=== PATIENT | female | born 1930 | race Caucasian/White ===

== ENCOUNTER 2017-07-08 07:44 | Day surgery (SDC) | payer MEDICARE, OTHER ==
[2017-06-24 11:06] LABS: ABSOLUTE BASOPHILS # (AUTO) 0.1 10^3/uL (0.0-0.2); ABSOLUTE EOSINOPHILS # (AUTO) 0.1 10^3/uL (0.0-0.6); ABSOLUTE LYMPHOCYTES (AUTO) 1.8 10^3/uL (0.5-4.7); ABSOLUTE MONOCYTES (AUTO) 0.6 10^3/uL (0.1-1.4); ABSOLUTE NEUT (AUTO) 4.2 10^3/uL (1.7-8.2); BASOPHILS % (AUTO) 0.8 % (0-2); EOSINOPHILS % (AUTO) 2.1 % (0-6); HEMATOCRIT 37.3 % (36.0-47.0); HEMOGLOBIN 12.5 g/dL (12.0-15.5); HGB HCT DIFFERENCE 0.2; LYMPHOCYTES % (AUTO) 26.3 % (13-45); MEAN CORPUSCULAR HGB CONC 33.5 g/dL (32.0-36.0); MEAN CORPUSCULAR VOLUME 84 fl (80-97); MONOCYTES % (AUTO) 8.6 % (3-13); RED BLOOD COUNT 4.46 10^6/uL (3.72-5.28); RED CELL DISTRIBUTION WIDTH 14.5 % (11.5-14.0); SEGMENTED NEUTROPHILS % (AUTO) 62.2 % (42-78); WHITE BLOOD COUNT 6.7 10^3/uL (4.0-10.5)
[2017-06-24 11:17] LABS: PROTHROMBIN TIME 13.9 SEC (11.4-15.4)
[2017-06-24 11:18] LABS: PARTIAL THROMBOPLASTIN TIME 28.6 SEC (23.5-35.8)
--- NOTE | 2017-06-24 12:11 | EKG REPORT ---
SEVERITY:- ABNORMAL ECG - SINUS RHYTHM FIRST DEGREE AV BLOCK : Confirmed by: Heather Lucero 24-Jun-2017 12:11:01
[~2017-07-08 07:44] MED LIST: LACTATED RINGERS 1000 ML IV PRN; LIDOCAINE 0.5% INJ-PF (5 MG/ML) 50 ML SDV SUBCUT PRN; LIDOCAINE 1%/EPINEPHRINE INJ 20 ML VIAL ONE; SODIUM BICARBONATE 8.4% INJ 50 MEQ/50 ML DISP.SYRIN ONE
[2017-07-08] MEDS ORDERED: FENTANYL CITRATE INJ/PF 100 MCG/2 ML AMPUL ONE (08:57)
[2017-07-08] MEDS ORDERED: MIDAZOLAM 2 MG/2 ML INJ ONE (08:57)
[2017-07-08] MEDS ORDERED: DEXAMETHASONE SOD PHOSPHATE INJ 4 MG/1 ML VIAL ONE (08:57)
[2017-07-08] MEDS ORDERED: ONDANSETRON HCL INJ/PF 4 MG/2 ML SDV ONE (08:57)
[2017-07-08] MEDS ORDERED: PROPOFOL INJ 200 MG/20 ML VIAL IV ONE ×2 (08:57→11:08)
[2017-07-08] MEDS: DOXYCYCLINE HYCLATE 100 MG in DEXTROSE 5%-WATER 250 ML IV PRN ×2 (09:00→09:32)
[2017-07-08] MEDS ORDERED: BACITRACIN INJ 50,000 UNIT VIAL ONE (09:35)
--- NOTE | 2017-07-08 11:17 | Operative Report ---
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 Patient was brought into the operating room and placed on the operating room table in a supine position. Patient was then prepped with a Betadine scrub and Betadine solution and draped in a sterile and aseptic manner. The area was then marked. 12 O'clock was marked towards the knee 3 O'clock was marked towards the pre-tibia 6:00 was marked towards the ankle 9:00 was marked towards the posterior calf The area was then anesthetized with 1% lidocaine with epinephrine and bicarbonate for its anesthetic and hemostatic effects. The area was then excised and marked at 12:00. The specimen was sent for frozen section. The results came back that the deep and lateral margins were free. This was some sort of squamous atypical lesion as reported by Dr. Ribera. We had considered a primary closure but this would go against the natural relaxed skin tension lines. A primary closure would be too tight and would have increased chance of dehiscence. This will leave more of a scar so we decided to use a boomerang sliding advancement flap reconstruction which would camouflage the scar better and take tension off of the closure so that would be less chances of complications. Then went ahead and outlined the flap and anesthetized it. Then incised the flap and developed a flap maintaining the subdermal plexus. Then we undermined 360 to allow for plate like scarring and minimize trap door deformity. Throughout the case hemostasis was achieved with the bipolar. We then tried to sutured the flap into its new position using 4-0 Vicryl for the subcutaneous and deep dermis however the skin was so thin and the tissue gap with the flap in its new position still could not hold the sutures. Therefore we were unable to use any subcutaneous sutures because of such poor quality of the tissue. We only were able to use skin sutures in order to anchor the flap into its new position. Skin was closed with a horizontal mattress, vertical mattress and simple sutures using 3-0 Prolene with knots being tied on the outside. We then applied tincture benzoin and Steri-Strips followed by a light pressure dressing. Patient was then reversed from anesthesia and taken to the [facility] for recovery. The patient tolerated well. There were no complications. Lesion size was approximately 2.5 x 2.7 cm with the defect being over 3 cm once the specimen was removed, please see pathology for actual size. Portions of this note may be dictated using [employer] voice recognition software. Occasional variations and spelling and vocabulary could be possible and are unintentional. Additionally, there is a chance that some errors may not be caught or corrected. Please notify the offer of any discrepancies noted or if any statements are unclear. Subjective: No complaints Objective: Vital signs stable afebrile No bleeding Dressing intact Assessment and plan: Doing well. Elevate the operative site. Resume medications. Take antibiotics for 1 day Follow-up Full instructions were given to the patient and family and they understand Portions of this note may be dictated using [employer] voice recognition software. Occasional variations and spelling and vocabulary could be possible and are unintentional. Additionally, there is a chance that some errors may not be caught or corrected. Please notify the offer of any discrepancies noted or if any statements are unclear.
--- NOTE | 2017-07-08 11:19 | PDOC DISCHARGE SUMMARY ---
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 Ribera Date of Surgery: 07/08/17 Condition: Good Treatment or Instructions: Leave the top dressing on for 2 days, then removed. Leave the steri-strip tapes on for 5 days, then removal. Then cleaning wound with peroxide and apply Neosporin/bacitracin 3 times per day. Antibiotics for 1 day, then discontinue. Elevate operative area to decrease swelling. Do not strain, or lift heavy objects. Call for excessive bleeding, increased temperature of 101, uncontrolled pain, or excessive nausea or vomiting. You may reach Dr. Johns through his office at [phone]. In the event of an emergency after hours, then contact Dr. Johns through [facility]. Return to the office for a postop check on . The time will be scheduled by the nursing staff of [facility] prior to discharge. Please give the patient a copy of their labs and EKG so they can bring this to their PMD. Thank you Portions of this note may be dictated using [employer] voice recognition software. Occasional variations and spelling and vocabulary could be possible and are unintentional. Additionally, there is a chance that some errors may not be caught or corrected. Please notify the offer of any discrepancies noted or if any statements are unclear. Referrals: ALAYNA LARRY MD [Primary Care Provider] - Discharge Diet: As Tolerated - Keep leg elevated. Minimize any formation of edema in the leg. Be very careful not to traumatize the area.
[2017-07-08 13:03] VITALS: BP 172/93
== END 2017-07-08 13:00 | disposition home or self-care (01) ==
LOC: OROUT 07:44
PROVIDERS: ATTEND Plastic Surgery
PROC: 0HBKXZZ Excision of Right Lower Leg Skin, External Approach (ICD-10-PCS; 2017-07-08)
PROC: 0HXKXZZ Transfer Right Lower Leg Skin, External Approach (ICD-10-PCS; principal; 2017-07-08 10:00)
DX: C44.792 Other specified malignant neoplasm of skin of right lower limb, including hip (principal); L57.0 Actinic keratosis; E78.00 Pure hypercholesterolemia, unspecified; M19.90 Unspecified osteoarthritis, unspecified site; I10 Essential (primary) hypertension; G40.909 Epilepsy, unspecified, not intractable, without status epilepticus; J30.2 Other seasonal allergic rhinitis; E89.0 Postprocedural hypothyroidism; Z88.6 Allergy status to analgesic agent; Z88.5 Allergy status to narcotic agent; Z79.899 Other long term (current) drug therapy; Z86.73 Personal history of transient ischemic attack (TIA), and cerebral infarction without residual deficits; Z79.01 Long term (current) use of anticoagulants
CPT/HCPCS: 93005; 36415; 85025; 85610; 85730; 88305 ×2; 88331; 93010; 14020; J2250; J3490 ×4; J1100; J2405; J7060; J2704; 400; J3010

== ENCOUNTER → 2017-07-18 | Outpatient (CLI) | payer MEDICARE, OTHER ==
--- NOTE | 2017-07-18 08:52 | XCELERA REPORT ---
[address] [address] Lower Extremity Venous Evaluation Name: ADE DUNAWAY Age: 86 yrs Gender: Female : 1930 Patient Status: Outpatient Patient Location: Study Date: 07/18/2017 08:05 AM Procedure: Color flow and duplex imaging of the veins of the right lower extremity as well as the left Common Femoral vein. Reason For Study: RLE PAIN AND EDEMA Ordering Physician: JUAN PAINTING Performed By: Maurizio Mason Right Sided Venous Evaluation Normal vessel filling wall to wall, compression and augmentation as well as Colour flow down to the infrageniculate veins. Left Sided Venous Evaluation The left common femoral vein is fully compressible. Spontaneous and phasic flow is present in the left common femoral vein. Interpretation Summary No duplex evidence of DVT or obstruction in the right lower extremity nor in the left Common Femoral vein. : JUAN PAINTING > Rey Teran
== END ==
LOC: SP 07:38
PROVIDERS: ATTEND Plastic Surgery
DX: R22.41 Localized swelling, mass and lump, right lower limb (principal); M79.604 Pain in right leg
CPT/HCPCS: 93971

== ENCOUNTER 2017-09-29 07:24 | Emergency (ER) | payer MEDICARE, OTHER ==
--- NOTE | 2017-09-29 07:30 | ER Document Report ---
ED Fall - General Stated Complaint: FALL ARM PAIN Time Seen by Provider: 09/29/17 07:29 Mode of Arrival: Medic Information source: Patient, Relative - daughter Notes: 87-year-old 4 post cane user female patient that lives with daughter, fell due to cat tangling in her feet and is complaining of neck pain, left shoulder pain , left hip (previous fx/hardware) pain. Did hit head, mild headache. No LOC. No nausea or vomiting. No anticoagulants. TRAVEL OUTSIDE OF THE [place] IN LAST 30 DAYS: No - Related data Allergies/Adverse Reactions: aspirin [Aspirin] Allergy (Severe, Verified 06/24/17 09:53) Swelling of Throat morphine [Morphine] Allergy (Intermediate, Verified 06/24/17 09:53) Penicillins Allergy (Intermediate, Verified 06/24/17 09:53) fentanyl [Fentanyl] Allergy (Verified 06/24/17 09:53) tachycardia, apnea, "feels like room is closing in" hydromorphone HCl [From Dilaudid] Allergy (Verified 06/24/17 09:53) "feels like throat is closing" Iodinated Contrast- Oral and IV Dye [IV Dye, Iodine Containing] Allergy ( Verified 06/24/17 09:53) Sulfa (Sulfonamide Antibiotics) Allergy (Verified 06/24/17 09:53) Past Medical History - General Information source: Patient, Relative - daughter - Social History Smoking Status: Never Smoker Frequency of alcohol use: None Drug Abuse: None Lives with: Other - daughter Family History: Reviewed & Not Pertinent - Past Medical History Cardiac Medical History: Reports: Hx Hypercholesterolemia, Hx Hypertension Neurological Medical History: Reports: Hx Cerebrovascular Accident - 2010, Hx Seizures GI Medical History: Reports: Hx Gastroesophageal Reflux Disease Musculoskeltal Medical History: Reports Hx Arthritis Psychiatric Medical History: Reports: Hx Depression Past Surgical History: Reports: Hx Hysterectomy, Hx Thyroid Surgery - partial. Denies: Hx Pacemaker - Immunizations Hx Diphtheria, Pertussis, Tetanus Vaccination: No Hx Pneumococcal Vaccination: 11/22/11 Review of Systems - Review of Systems -: Yes ROS unobtainable due to patient's medical condition Constitutional: No symptoms reported EENT: No symptoms reported Cardiovascular: No symptoms reported Respiratory: No symptoms reported Gastrointestinal: No symptoms reported Genitourinary: No symptoms reported Female Genitourinary: No symptoms reported Musculoskeletal: See HPI Skin: No symptoms reported Hematologic/Lymphatic: No symptoms reported Neurological/Psychological: No symptoms reported Physical Exam - Vital signs Vitals: Temp Pulse Resp BP Pulse Ox 98.8 F 80 20 143/65 H 99 09/29/17 08:13 09/29/17 08:13 09/29/17 08:13 09/29/17 08:13 09/29/17 08:13 Interpretation: Normal - General General appearance: Appears well, Alert In distress: None - HEENT Head: Normocephalic, Atraumatic Eyes: Normal Extraocular movements intact: Yes Pupils: PERRL Neck: Supple - mild tender mid c spine - Respiratory Respiratory status: No respiratory distress Chest status: Nontender Breath sounds: Normal Chest palpation: Normal - Cardiovascular Rhythm: Regular Heart sounds: Normal auscultation Murmur: No - Abdominal Inspection: Normal Distension: No distension Bowel sounds: Normal Tenderness: Nontender Organomegaly: No organomegaly - Back Back: Normal, Nontender - Extremities General upper extremity: Normal inspection, Nontender, Normal color, Normal ROM , Normal temperature General lower extremity: Normal inspection, Nontender, Normal color, Normal ROM , Normal temperature, Normal weight bearing. No: Marck's sign Shoulder: Tender - left superior shoulder, no deformity Hip: Tender - mild left lateral hip, FROM, no quinten tenderness - Neurological Neuro grossly intact: Yes Cognition: Normal Orientation: AAOx4 Dale Coma Scale Eye Opening: Spontaneous Dale Coma Scale Verbal: Oriented Dale Coma Scale Motor: Obeys Commands Ariane Coma Scale Total: 15 Speech: Normal Motor strength normal: LUE, RUE, LLE, RLE Sensory: Normal - Psychological Associated symptoms: Normal affect, Normal mood - Skin Skin Temperature: Warm Skin Moisture: Dry Skin Color: Normal Course - Re-evaluation Re-evalutation: 09/29/17 09:13 ct and xray negative. pt up to bathroom with cane. - Vital Signs Vital signs: Temp Pulse Resp BP Pulse Ox 97.4 F 84 17 136/78 H 96 09/29/17 09:30 09/29/17 09:30 09/29/17 09:30 09/29/17 09:30 09/29/17 09:30 Discharge - Discharge Clinical Impression: abrasion left 4th finger Fall Qualifiers: Encounter type: initial encounter Qualified Code(s): W19.XXXA - Unspecified fall, initial encounter Contusion of left shoulder Qualifiers: Encounter type: initial encounter Qualified Code(s): S40.012A - Contusion of left shoulder, initial encounter Cervical strain Qualifiers: Encounter type: initial encounter Qualified Code(s): S16.1XXA - Strain of muscle, fascia and tendon at neck level, initial encounter Head injury Qualifiers: Encounter type: initial encounter Qualified Code(s): S09.90XA - Unspecified injury of head, initial encounter Contusion of left hip Qualifiers: Encounter type: initial encounter Qualified Code(s): S70.02XA - Contusion of left hip, initial encounter Condition: Good Disposition: HOME, SELF-CARE Instructions: Abrasions ([facility]), Acetaminophen, Contusion ([facility]), Head Injury Precautions ([facility]), Tetanus Immunization Given ([facility]) Additional Instructions: to er any concerns keep abrasion, clean, bacitracin, bandaid tylenol for pain use walker next few days see dr. larry for follow up copy of imaging reports given to you Please complete the patient satisfaction survey if you get one, and return it.. If you do not receive a survey, then you can go to the [facility] website, [email or web address] and place your comments about your very good care. Thank you very much. It was a pleasure being your medical provider today. Referrals: ALAYNA LARRY MD [Primary Care Provider] - Follow up as needed
[2017-09-29] MEDS ORDERED: ACETAMINOPHEN 325 MG TABLET PO ONE (07:48)
--- NOTE | 2017-09-29 08:49 | RADIOLOGY REPORT (SQ) ---
EXAM DESCRIPTION: CT HEAD WITHOUT COMPLETED DATE/TIME: 09/29/2017 8:25 am REASON FOR STUDY: headache COMPARISON: 01/10/2013 TECHNIQUE: Axial images acquired through the brain without intravenous contrast. Images reviewed wi th bone, brain and subdural windows. Images stored on PACS. All CT scanners at this facility use dose modulation, iterative reconstruction, and/or weight based d osing when appropriate to reduce radiation dose to as low as reasonably achievable (ALARA). [facility]: Dose Right [facility]: CareDose [facility]: Dose Right [facility]: Teradose 4D [facility]: Smart Technologies RADIATION DOSE: Up-to-date CT equipment and radiation dose reduction techniques were employed. CTDIv ol: 64.6 mGy. DLP: 1163 mGy-cm. mGy. LIMITATIONS: None. FINDINGS: VENTRICLES: Prominent. CEREBRUM: Stable encephalomalacia adjacent to right temporal craniotomy. No masses. No hemorrhage. No midline shift. Areas of low density in the white matter most likely due to chronic micro-vascula r ischemic change. No evidence for acute infarction. CEREBELLUM: No masses. No hemorrhage. No alteration of density. No evidence for acute infarction. EXTRAAXIAL SPACES: Mild age-related involutional change. No fluid collections. No masses. ORBITS AND GLOBE: No intra- or extraconal masses. Normal contour of globe without masses. CALVARIUM: No fracture. PARANASAL SINUSES: No fluid or mucosal thickening. SOFT TISSUES: No mass or hematoma. OTHER: No other significant finding. IMPRESSION: No acute abnormality in the brain. EVIDENCE OF ACUTE STROKE: NO. TECHNICAL DOCUMENTATION: JOB ID: [id number] Quality ID # [id number]: Final reports with documentation of one or more dose reduction techniques (e.g., Au tomated exposure control, adjustment of the mA and/or kV according to patient size, use of iterative reconstruction technique) 2010 [employer]- All Rights Reserved
--- NOTE | 2017-09-29 08:50 | RADIOLOGY REPORT (SQ) ---
EXAM DESCRIPTION: CT CERVICAL SPINE WITHOUT COMPLETED DATE/TIME: 09/29/2017 8:25 am REASON FOR STUDY: fall COMPARISON: None. TECHNIQUE: Axial images acquired through the cervical spine without intravenous contrast. Images re viewed with lung, soft tissue and bone windows. Reconstructed coronal and sagittal MPR images review ed. Images stored on PACS. All CT scanners at this facility use dose modulation, iterative reconstruction, and/or weight based d osing when appropriate to reduce radiation dose to as low as reasonably achievable (ALARA). [facility]: Dose Right [facility]: CareDose [facility]: Dose Right [facility]: Teradose 4D [facility]: [employer] RADIATION DOSE: Up-to-date CT equipment and radiation dose reduction techniques were employed. CTDIv ol: 18.4 mGy. DLP: 338 mGy-cm. mGy. LIMITATIONS: None. FINDINGS: ALIGNMENT: Anatomic. MINERALIZATION: Normal. VERTEBRAL BODIES: No fractures or dislocation. DISCS: Multilevel disc space narrowing with osteophytes. FACETS, LATERAL MASSES, POSTERIOR ELEMENTS: Facet arthropathy. No fractures. No dislocation. No ac [place] findings. HARDWARE: None in the spine. VISUALIZED RIBS: No fractures. LUNG APICES AND SOFT TISSUES: No significant or acute findings. OTHER: No other significant finding. IMPRESSION: CHRONIC DEGENERATIVE CHANGES. NO ACUTE FINDINGS. TECHNICAL DOCUMENTATION: JOB ID: [id number] Quality ID # [id number]: Final reports with documentation of one or more dose reduction techniques (e.g., Au tomated exposure control, adjustment of the mA and/or kV according to patient size, use of iterative reconstruction technique) 2010 [employer]- All Rights Reserved
--- NOTE | 2017-09-29 08:57 | RADIOLOGY REPORT (SQ) ---
EXAM DESCRIPTION: SHOULDER LEFT 2 OR MORE VIEWS COMPLETED DATE/TIME: 09/29/2017 8:47 am REASON FOR STUDY: fall COMPARISON: 01/10/2013 NUMBER OF VIEWS: Three views. TECHNIQUE: Internal rotation, external rotation, and Y view images acquired of the left shoulder. LIMITATIONS: None. FINDINGS: MINERALIZATION: Normal. BONES: No acute fracture or dislocation. No worrisome bone lesions. JOINTS: No dislocation. VISUALIZED LUNGS AND RIBS: No pneumothorax. No rib fracture. SOFT TISSUES: No metallic foreign bodies OTHER: No other significant finding. IMPRESSION: No evidence for acute fracture or dislocation. TECHNICAL DOCUMENTATION: JOB ID: [id number] [employer]- All Rights Reserved
--- NOTE | 2017-09-29 08:59 | RADIOLOGY REPORT (SQ) ---
EXAM DESCRIPTION: HIP LEFT AP/LATERAL COMPLETED DATE/TIME: 09/29/2017 8:47 am REASON FOR STUDY: fall COMPARISON: None. NUMBER OF VIEWS: Two views. TECHNIQUE: AP pelvis and additional frog-leg view of the left hip. LIMITATIONS: None. FINDINGS: MINERALIZATION: Normal. LEFT HIP: No acute fractures seen. 3 nails are noted of the hip. RIGHT HIP: No fracture or dislocation. No worrisome bone lesions. PUBIS AND ISCHIUM: No fracture. PELVIS: No fracture. SACRUM: No fracture or dislocation. No worrisome bone lesions. LOWER LUMBAR SPINE: Arthritic changes noted. Limited evaluation. SOFT TISSUES: No findings. OTHER: If an occult fracture suspected clinically, consider followup imaging. IMPRESSION: Postoperative change left hip. No acute fractures. TECHNICAL DOCUMENTATION: JOB ID: [id number]- All Rights Reserved
[2017-09-29] MEDS ORDERED: DIPH/PERTUSS(ACELL)/TETANUS VAC/PF 0.5 ML SYR (>=10YO) IM ONE (09:22)
[2017-09-29 09:30] VITALS: BP 136/78
== END 2017-09-29 09:40 | disposition home or self-care (01) ==
LOC: ER 07:24
DX: S70.02XA Contusion of left hip, initial encounter (principal); S09.90XA Unspecified injury of head, initial encounter; S16.1XXA Strain of muscle, fascia and tendon at neck level, initial encounter; S40.012A Contusion of left shoulder, initial encounter; S60.415A Abrasion of left ring finger, initial encounter; W01.0XXA Fall on same level from slipping, tripping and stumbling without subsequent striking against object, initial encounter; Y92.009 Unspecified place in unspecified non-institutional (private) residence as the place of occurrence of the external cause; Z88.0 Allergy status to penicillin; Z88.2 Allergy status to sulfonamides; Z88.6 Allergy status to analgesic agent; E78.00 Pure hypercholesterolemia, unspecified; I10 Essential (primary) hypertension; Z86.73 Personal history of transient ischemic attack (TIA), and cerebral infarction without residual deficits; K21.9 Gastro-esophageal reflux disease without esophagitis; Z90.710 Acquired absence of both cervix and uterus; Z23 Encounter for immunization
CPT/HCPCS: 99284; 90471; 73502; 73030; 70450; 72125; 90715; A9270

== ENCOUNTER 2017-11-12 13:55 | Emergency (ER) | payer MEDICARE, OTHER ==
[2017-11-12] MEDS ORDERED: ACETAMINOPHEN 325 MG TABLET PO ONE (14:39)
--- NOTE | 2017-11-12 14:44 | ER Document Report ---
ED Fall - General Chief Complaint: Fall Stated Complaint: FALL Time Seen by Provider: 11/12/17 14:23 Notes: The patient is an 87-year-old female, not on any blood thinners, PMHx HTN, presents after her cane got caught on her wooden floor and she fell on her left side. She is complaining of left fifth finger pain, left knee pain and mild epigastric pain where her cane hit. According to her daughter, her left finger appeared dislocated, but the daughter pressed on it and now it is just swollen but not deformed. Patient's tetanus is up-to-date. Patient denies head injury , LOC, nausea, vomiting, difficulty walking, open wounds, numbness, tingling, chest pain, shortness of breath or syncope. TRAVEL OUTSIDE OF THE [place] IN LAST 30 DAYS: No - Related data Allergies/Adverse Reactions: aspirin [Aspirin] Allergy (Severe, Verified 06/24/17 09:53) Swelling of Throat morphine [Morphine] Allergy (Intermediate, Verified 06/24/17 09:53) Penicillins Allergy (Intermediate, Verified 06/24/17 09:53) fentanyl [Fentanyl] Allergy (Verified 06/24/17 09:53) tachycardia, apnea, "feels like room is closing in" hydromorphone HCl [From Dilaudid] Allergy (Verified 06/24/17 09:53) "feels like throat is closing" Iodinated Contrast- Oral and IV Dye [IV Dye, Iodine Containing] Allergy ( Verified 06/24/17 09:53) Sulfa (Sulfonamide Antibiotics) Allergy (Verified 06/24/17 09:53) Past Medical History - General Information source: Patient - Social History Smoking Status: Never Smoker Chew tobacco use (# tins/day): No Frequency of alcohol use: None Drug Abuse: None Family History: Reviewed & Not Pertinent Patient has suicidal ideation: No Patient has homicidal ideation: No - Past Medical History Cardiac Medical History: Reports: Hx Hypercholesterolemia, Hx Hypertension Denies: Hx Coronary Artery Disease, Hx Heart Attack Pulmonary Medical History: Denies: Hx Asthma, Hx Bronchitis, Hx COPD, Hx Pneumonia Neurological Medical History: Reports: Hx Cerebrovascular Accident - 2010, Hx Seizures Renal/ Medical History: Denies: Hx Peritoneal Dialysis GI Medical History: Reports: Hx Gastroesophageal Reflux Disease Musculoskeltal Medical History: Reports Hx Arthritis Psychiatric Medical History: Reports: Hx Depression Past Surgical History: Reports: Hx Hysterectomy, Hx Thyroid Surgery - partial. Denies: Hx Pacemaker - Immunizations Hx Diphtheria, Pertussis, Tetanus Vaccination: No Hx Pneumococcal Vaccination: 11/22/11 Review of Systems - Review of Systems Notes: REVIEW OF SYSTEMS: CONSTITUTIONAL: -fevers, -chills EENT: -eye pain, -difficulty swallowing, -nasal congestion CARDIOVASCULAR: -chest pain, -syncope. RESPIRATORY: -cough, -SOB GASTROINTESTINAL: -abdominal pain, -nausea, -vomiting, -diarrhea GENITOURINARY: -dysuria, -hematuria MUSCULOSKELETAL: +left 5th finger and knee pain, -back pain, -neck pain SKIN: -rash or skin lesions. HEMATOLOGIC: -easy bruising or bleeding. LYMPHATIC: -swollen, enlarged glands. NEUROLOGICAL: -altered mental status or loss of consciousness, -headache, - neurologic symptoms PSYCHIATRIC: -anxiety, -depression. ALL OTHER SYSTEMS REVIEWED AND NEGATIVE. Physical Exam - Vital signs Vitals: Resp 16 11/12/17 14:04 - Notes Notes: PHYSICAL EXAMINATION: GENERAL: Well-appearing, well-nourished and in no acute distress. HEAD: Atraumatic, normocephalic. EYES: Pupils equal round and reactive to light, extraocular movements intact, sclera anicteric, conjunctiva are normal. ENT: nares patent, oropharynx clear without exudates. Moist mucous membranes. NECK: Normal range of motion, supple without lymphadenopathy LUNGS: Breath sounds clear to auscultation bilaterally and equal. No wheezes rales or rhonchi. HEART: Regular rate and rhythm without murmurs ABDOMEN: Soft, nontender, normoactive bowel sounds. No guarding, no rebound. No masses appreciated. EXTREMITIES: Swelling of left proximal 5th phalange. Mild tenderness and ecchymosis over anterior left knee. Able to lift knee off bed. Normal range of motion, no pitting or edema. No cyanosis. NEUROLOGICAL: Cranial nerves grossly intact. Normal speech, normal gait. Normal sensory and motor exams. PSYCH: Normal mood, normal affect. SKIN: Small ecchymosis over epigastric area. Course - Re-evaluation Re-evalutation: Patient appears well. This was a witnessed strictly mechanical fall after her cane became stuck on her wooden floor. Her daughter witnessed the fall and she did not hit her head or have loss of consciousness. Not on any blood thinners. A bedside FAST US exam was performed because of the mild ecchymosis over her epigastric region, but this did not show any free fluid in her abdomen and her abdomen is soft and nontender. - Vital Signs Vital signs: Temp Pulse Resp BP Pulse Ox 16 11/12/17 14:04 Discharge - Discharge Clinical Impression: Fracture of finger of left hand Qualifiers: Encounter type: initial encounter Finger: little finger Fracture type: closed Phalanx: proximal Fracture alignment: displaced Qualified Code(s): S62.617A - Displaced fracture of proximal phalanx of left little finger, initial encounter for closed fracture Contusion of knee, left Qualifiers: Encounter type: initial encounter Qualified Code(s): S80.02XA - Contusion of left knee, initial encounter Condition: Stable Disposition: HOME, SELF-CARE Additional Instructions: Fractured Finger There is a fracture in your finger. The bone is straight and in good position to heal. The doctor has assessed the seriousness of the fracture and has explained your treatment plan. Usually the finger will be splinted until fracture healing is complete. This is usually about three or four weeks. At that time, the injured finger may be taped to the next finger to provide a moving splint for longer protection. The first few days after the injury, the finger should be kept elevated and cold (with ice packs). This decreases the swelling and pain. You should contact the doctor or return at once if pain or swelling become severe, or if the finger becomes numb. Some degree of bruising is normal with a finger fracture. Forms: Elevated Blood Pressure Referrals: ALAYNA LARRY MD [Primary Care Provider] - Follow up as needed GUILLERMO LOCK DO [ACTIVE STAFF] - Follow up as needed
--- NOTE | 2017-11-12 15:24 | RADIOLOGY REPORT (SQ) ---
EXAM DESCRIPTION: CHEST SINGLE VIEW COMPLETED DATE/TIME: 11/12/2017 3:10 pm REASON FOR STUDY: cough COMPARISON: 2012. 2010. NUMBER OF VIEWS: One view. TECHNIQUE: Single frontal radiographic view of the chest acquired. LIMITATIONS: None. FINDINGS: LUNGS AND PLEURA: Mild left basilar scar/ subsegmental atelectasis. No acute or suspiciou s cardiopulmonary change. Clear lungs otherwise. MEDIASTINUM AND HILAR STRUCTURES: Stable contour. HEART AND VASCULAR STRUCTURES: Heart normal in size. Normal vasculature. BONES: No acute findings. HARDWARE: None in the chest. OTHER: No other significant finding. IMPRESSION: No acute cardiopulmonary disease. TECHNICAL DOCUMENTATION: JOB ID: [id number] [employer]- All Rights Reserved
--- NOTE | 2017-11-12 15:27 | RADIOLOGY REPORT (SQ) ---
EXAM DESCRIPTION: FINGER LEFT COMPLETED DATE/TIME: 11/12/2017 3:09 pm REASON FOR STUDY: left 5th finger injury COMPARISON: None. NUMBER OF VIEWS: Three views. TECHNIQUE: AP, lateral, and oblique images acquired of the left fifth finger. LIMITATIONS: None. FINDINGS: MINERALIZATION: Osteopenia. BONES: Displaced fracture involving the distal aspect of the 5th proximal phalanx. The distal fractu re fragment is displaced 4 mm anteriorly and rotated. No other fractures. Mild degenerative changes . SOFT TISSUES: Soft tissue swelling involving the proximal 5th finger. OTHER: No other significant finding. IMPRESSION: Displaced fracture involving the distal aspect of the 5th proximal phalanx. COMMENT: SITE OF TRAUMA/COMPLAINT MARKED/STAMP COMPLETED: YES. TECHNICAL DOCUMENTATION: JOB ID: [id number] [employer]- All Rights Reserved
--- NOTE | 2017-11-12 15:30 | RADIOLOGY REPORT (SQ) ---
EXAM DESCRIPTION: KNEE LEFT 3 VIEWS COMPLETED DATE/TIME: 11/12/2017 3:10 pm REASON FOR STUDY: left knee injury COMPARISON: None. NUMBER OF VIEWS: Three views. TECHNIQUE: AP, lateral, and sunrise patella radiographic images acquired of the left knee. LIMITATIONS: None. FINDINGS: MINERALIZATION: Normal. BONES: No acute fracture or dislocation. No worrisome bone lesions. JOINT: No effusion. SOFT TISSUES: No soft tissue swelling. No radio-opaque foreign body. OTHER: No other significant finding. IMPRESSION: No evidence of acute injury involving the left knee. TECHNICAL DOCUMENTATION: JOB ID: [id number] [employer]- All Rights Reserved
[2017-11-12 16:33] VITALS: BP 167/97
== END 2017-11-12 16:20 | disposition home or self-care (01) ==
LOC: ER 13:55
PROC: 2W3EX1Z Immobilization of Right Hand using Splint (ICD-10-PCS; principal; 2017-11-12)
DX: S62.617A Displaced fracture of proximal phalanx of left little finger, initial encounter for closed fracture (principal); S80.02XA Contusion of left knee, initial encounter; R10.13 Epigastric pain; W01.0XXA Fall on same level from slipping, tripping and stumbling without subsequent striking against object, initial encounter; I10 Essential (primary) hypertension; E78.00 Pure hypercholesterolemia, unspecified; Z88.6 Allergy status to analgesic agent; Z88.0 Allergy status to penicillin; Z88.2 Allergy status to sulfonamides; Z86.73 Personal history of transient ischemic attack (TIA), and cerebral infarction without residual deficits; Z90.710 Acquired absence of both cervix and uterus
CPT/HCPCS: 71010; 99283

== ENCOUNTER 2018-05-01 13:35 | Emergency (ER) | payer MEDICARE, OTHER ==
[2018-05-01] MEDS ORDERED: LIDOCAINE 1%/EPINEPHRINE INJ 20 ML VIAL INJ ONE (14:11)
--- NOTE | 2018-05-01 14:13 | ER Document Report ---
ED Wound - General Chief Complaint: Laceration Stated Complaint: FOOT LACERATION Time Seen by Provider: 05/01/18 14:07 Notes: The patient is an 87-year-old female who presents with a right foot laceration after she bumped it against a laptop earlier today. She noticed bleeding from the wound. EMS was called and it was wrapped. She is not on any blood thinners or aspirin. Her tetanus is up-to-date. Denies numbness, tingling or difficulty walking. TRAVEL OUTSIDE OF THE [place] IN LAST 30 DAYS: No - Related Data Allergies/Adverse Reactions: aspirin [Aspirin] Allergy (Severe, Verified 06/24/17 09:53) Swelling of Throat morphine [Morphine] Allergy (Intermediate, Verified 06/24/17 09:53) Penicillins Allergy (Intermediate, Verified 06/24/17 09:53) fentanyl [Fentanyl] Allergy (Verified 06/24/17 09:53) tachycardia, apnea, "feels like room is closing in" hydromorphone HCl [From Dilaudid] Allergy (Verified 06/24/17 09:53) "feels like throat is closing" Iodinated Contrast- Oral and IV Dye [IV Dye, Iodine Containing] Allergy ( Verified 06/24/17 09:53) Sulfa (Sulfonamide Antibiotics) Allergy (Verified 06/24/17 09:53) Past Medical History - Social History Smoking Status: Former Smoker Chew tobacco use (# tins/day): No Frequency of alcohol use: None Drug Abuse: None Family History: Reviewed & Not Pertinent Patient has suicidal ideation: No Patient has homicidal ideation: No - Past Medical History Cardiac Medical History: Reports: Hx Hypercholesterolemia, Hx Hypertension Denies: Hx Coronary Artery Disease, Hx Heart Attack Pulmonary Medical History: Denies: Hx Asthma, Hx Bronchitis, Hx COPD, Hx Pneumonia Neurological Medical History: Reports: Hx Cerebrovascular Accident - 2010, Hx Seizures Renal/ Medical History: Denies: Hx Peritoneal Dialysis GI Medical History: Reports: Hx Gastroesophageal Reflux Disease Musculoskeltal Medical History: Reports Hx Arthritis Psychiatric Medical History: Reports: Hx Depression Past Surgical History: Reports: Hx Hysterectomy, Hx Neurologic Surgery - Aneurysm clip, Hx Orthopedic Surgery - Lt hip fx repair, Hx Thyroid Surgery - partial. Denies: Hx Pacemaker - Immunizations Hx Diphtheria, Pertussis, Tetanus Vaccination: No Hx Pneumococcal Vaccination: 01/06/12 Review of Systems - Review of Systems Notes: REVIEW OF SYSTEMS: CONSTITUTIONAL: -fevers, -chills MUSCULOSKELETAL: -back pain, -neck pain SKIN: +right foot laceration HEMATOLOGIC: -easy bruising or bleeding. LYMPHATIC: -swollen, enlarged glands. NEUROLOGICAL: -altered mental status or loss of consciousness, -headache, - neurologic symptoms PSYCHIATRIC: -anxiety, -depression. ALL OTHER SYSTEMS REVIEWED AND NEGATIVE. Physical Exam - Vital signs Vitals: Temp Pulse Resp BP Pulse Ox 98.3 F 80 18 141/88 H 99 05/01/18 13:54 05/01/18 13:54 05/01/18 13:54 05/01/18 13:54 05/01/18 13:54 - Notes Notes: PHYSICAL EXAMINATION: GENERAL: Well-appearing, well-nourished and in no acute distress. EXTREMITIES: Strong DP and PT pulses, brisk capillary refill in right toes, able to wiggle all toes, all tendons intact NEUROLOGICAL: Cranial nerves grossly intact. Normal speech. Normal sensory and motor exams. PSYCH: Normal mood, normal affect. SKIN: 3 cm L-shaped laceration over dorsal surface of right foot. Course - Re-evaluation Re-evalutation: Patient with no acute fractures on x-ray. She is neurovascularly intact in all tendons are also intact. Patient's laceration sutured instructed her about home care. She will return in 1 week for suture removal. Given strict return precautions and she understands. Tetanus is already up-to-date. - Vital Signs Vital signs: Temp Pulse Resp BP Pulse Ox 98.1 F 74 16 161/80 H 96 05/01/18 17:04 05/01/18 17:04 05/01/18 17:04 05/01/18 17:04 05/01/18 17:04 - Diagnostic Test Radiology reviewed: Image reviewed, Reports reviewed Radiology results interpreted by me: Right foot x-ray: NAD Procedures - Laceration/Wound Repair Right Upper Foot Wound length (cm): 5 Wound's Depth, Shape: Flap Laceration pre-procedure: Sterile PPE donned Anesthetic type: 1% Lidocaine w/epi Volume Anesthetic (mLs): 8 Wound explored: Clean Irrigated w/ Saline (mLs): 1,000 Wound Repaired With: Sutures Suture Size/Type: 4:0, Prolene Number of Sutures: 10 Layer Closure?: No Post-procedure wound care: Sterile dressing applied Post-procedure NV exam normal: Yes Complications: No Notes: Suture Repair completed by Dr. Aaron Hernandez. Discharge - Discharge Clinical Impression: Laceration of foot Qualifiers: Encounter type: initial encounter Laterality: right Qualified Code(s): S91.311A - Laceration without foreign body, right foot, initial encounter Condition: Stable Disposition: HOME, SELF-CARE Additional Instructions: LACERATION CARE: Your laceration has been sutured to keep the skin edges aligned during healing. The time of suture removal depends on the nature and location of your cut. Please follow the care instructions the doctor has outlined for you and return for further care, according to the schedule you've been given. Keep the wound and dressing clean. Unless you were told otherwise, you may shower daily, blotting the wound dry with a clean, unused towel. At other times, If the dressing gets wet or blood soaked, remove it and blot the wound dry, then reapply a new dressing. Unless you were instructed otherwise, dressings should be changed at least daily. If any signs of infection occur (swelling, redness, drainage, increasing tenderness, red streaks, tender lumps in the armpit or groin above the laceration, or fever), see the doctor immediately. SOAP CLEANSING: Gently wash the wound daily using a mild soap (like Ivory, Phisoderm, Neutrogena). Use warm water, rubbing gently until all debris, ooze, and crusting have been washed from the wound. Allow to dry briefly (about 10 minutes) after cleaning. Repeat this cleansing at least three times a day for the first two days and then once or twice a day. ANTIBIOTIC OINTMENT PROTECTION: Your wounds are such that dressing them is not practical or optional. After cleansing, you should apply a thin coating of antibiotic ointment ( Bacitracin, not Neosporin) to the wounds at least three times daily. This lessens infection risk, and may decrease the amount of scarring. Use a q-tip or dull butter knife, not your finger, to apply this ointment. Any debris or ooze which builds up in the ointment should be gently rubbed off with a sterile gauze pad. Harder crusting may need to be gently scrubbed off with a clean wash cloth with soap and warm water, perhaps applying a warm, wet wash cloth to the wound for ten minutes first. Development of redness, severe itching, or blistering may mean allergy to the ointment. See the doctor. FOLLOW-UP CARE: Please return in 2 days for an infection check and dressing change. Your sutures should be removed in 7 days. To facilitate a timely removal of your sutures, you may return to the Emergency Department at [facility]. You do not need to call for an appointment, but the best time to come in for suture removal is early in the morning. If you have been referred to another physician for follow-up care, call that physicians office for an appointment as you were instructed. If you experience a significant change in your laceration, or if you are concerned there may be an infection (swelling, redness, drainage, increasing tenderness, red streaks, tender lumps in the armpit or groin above the laceration, or fever) , return to the Emergency Department immediately re-evaluation. Forms: Elevated Blood Pressure Referrals: ALAYNA LARRY MD [Primary Care Provider] - Follow up as needed
--- NOTE | 2018-05-01 15:53 | RADIOLOGY REPORT (SQ) ---
EXAM DESCRIPTION: FOOT RIGHT COMPLETE COMPLETED DATE/TIME: 05/01/2018 3:20 pm REASON FOR STUDY: foot injury COMPARISON: None. NUMBER OF VIEWS: Three views. TECHNIQUE: AP, lateral and oblique radiographic images acquired of the right foot. LIMITATIONS: None. FINDINGS: MINERALIZATION: Normal. BONES: No acute fracture or dislocation. No worrisome bone lesions. JOINTS: No effusions. SOFT TISSUES: No soft tissue swelling. No foreign body. OTHER: No other significant finding. IMPRESSION: NEGATIVE STUDY OF THE RIGHT FOOT. NO RADIOGRAPHIC EVIDENCE OF ACUTE INJURY. TECHNICAL DOCUMENTATION: JOB ID: [id number] [email or web address]- All Rights Reserved Reading location - IP/workstation name: [email or web address]
--- NOTE | 2018-05-01 16:30 | ER Document Report ---
Procedures - Laceration/Wound Repair Right Foot Wound length (cm): 5 Wound's Depth, Shape: Irregular, Flap Laceration pre-procedure: Betadine prep applied Anesthetic type: 1% Lidocaine w/epi Volume Anesthetic (mLs): 8 Wound explored: Clean Irrigated w/ Saline (mLs): 1,000 Wound Repaired With: Sutures Suture Size/Type: 4:0, Prolene Number of Sutures: 10 Layer Closure?: No Post-procedure wound care: Sterile dressing applied Post-procedure NV exam normal: Yes Complications: No
[2018-05-01 17:07] VITALS: BP 161/80
== END 2018-05-01 17:07 | disposition home or self-care (01) ==
LOC: ER 13:35
PROC: 0HQMXZZ Repair Right Foot Skin, External Approach (ICD-10-PCS; principal; 2018-05-01)
DX: S91.311A Laceration without foreign body, right foot, initial encounter (principal); W45.8XXA Other foreign body or object entering through skin, initial encounter; Z87.891 Personal history of nicotine dependence; I10 Essential (primary) hypertension
CPT/HCPCS: 99283; 73630; 12002; J3490

== ENCOUNTER 2018-05-28 15:22 | Emergency (ER) | payer MEDICARE, OTHER ==
--- NOTE | 2018-05-28 16:35 | RADIOLOGY REPORT (SQ) ---
EXAM DESCRIPTION: SHOULDER LEFT 2 OR MORE VIEWS COMPLETED DATE/TIME: 05/28/2018 4:26 pm REASON FOR STUDY: Fell and injured left shoulder COMPARISON: 09/29/2017 NUMBER OF VIEWS: Three views. TECHNIQUE: Internal rotation, external rotation, and Y view images acquired of the left shoulder. LIMITATIONS: None. FINDINGS: MINERALIZATION: Osteopenic BONES: No acute fracture or dislocation. No worrisome bone lesions. JOINTS: No glenohumeral joint malalignment. No AC joint widening. VISUALIZED LUNGS AND RIBS: No pneumothorax. No rib fracture. SOFT TISSUES: No radiopaque foreign body. OTHER: No other significant finding. IMPRESSION: No acute fracture or malalignment. TECHNICAL DOCUMENTATION: JOB ID: [id number] [employer]- All Rights Reserved Reading location - IP/workstation name: [email or web address]
--- NOTE | 2018-05-28 16:37 | RADIOLOGY REPORT (SQ) ---
EXAM DESCRIPTION: WRIST LEFT 3 VIEWS COMPLETED DATE/TIME: 05/28/2018 4:26 pm REASON FOR STUDY: Fell and injured left wrist COMPARISON: None. NUMBER OF VIEWS: Three views. TECHNIQUE: AP, lateral, and oblique radiographic images acquired of the left wrist. LIMITATIONS: None. FINDINGS: MINERALIZATION: Bony structures are osteopenia BONES: There is an impaction type fracture of the distal radius. There is an associated avulsion typ e fracture of the ulnar styloid process. No other evidence for fracture is seen. SOFT TISSUES: No soft tissue swelling. No foreign body. OTHER: No other significant finding. IMPRESSION: Impaction type fracture of the distal radius and associated avulsion type fracture of th e ulnar styloid process. TECHNICAL DOCUMENTATION: JOB ID: [id number] [employer]- All Rights Reserved Reading location - IP/workstation name: [email or web address]
--- NOTE | 2018-05-28 16:37 | RADIOLOGY REPORT (SQ) ---
EXAM DESCRIPTION: HIP LEFT AP/LATERAL COMPLETED DATE/TIME: 05/28/2018 4:26 pm REASON FOR STUDY: Fell and injured hip COMPARISON: None. NUMBER OF VIEWS: Two views. TECHNIQUE: AP pelvis and additional frog-leg view of the left hip. LIMITATIONS: None. FINDINGS: MINERALIZATION: Normal. LEFT HIP: Internal fixation from prior fracture. No acute osseous or joint abnormality. RIGHT HIP: No fracture or dislocation. No worrisome bone lesions. PUBIS AND ISCHIUM: No fracture. PELVIS: No fracture. SACRUM: No fracture or dislocation. No worrisome bone lesions. LOWER LUMBAR SPINE: Lumbar degenerative disc disease and spondylosis. SOFT TISSUES: No findings. OTHER: No other significant finding. IMPRESSION: Lumbar degenerative changes. No acute osseous abnormality. TECHNICAL DOCUMENTATION: JOB ID: [id number] [employer]- All Rights Reserved Reading location - IP/workstation name: [email or web address]
--- NOTE | 2018-05-28 16:38 | RADIOLOGY REPORT (SQ) ---
EXAM DESCRIPTION: FOOT RIGHT COMPLETE COMPLETED DATE/TIME: 05/28/2018 4:26 pm REASON FOR STUDY: Eschar top of foot 2 months, surrounding erythema COMPARISON: None. NUMBER OF VIEWS: Three views. TECHNIQUE: AP, lateral and oblique radiographic images acquired of the right foot. LIMITATIONS: None. FINDINGS: MINERALIZATION: Bony structures are somewhat osteopenic BONES: No acute fracture or dislocation. There is no plain film evidence for bony involvement by ost eomyelitis P JOINTS: No effusions. SOFT TISSUES: No soft tissue swelling. No foreign body. OTHER: No other significant finding. IMPRESSION: No significant findings. TECHNICAL DOCUMENTATION: JOB ID: [id number] [employer]- All Rights Reserved Reading location - IP/workstation name: [email or web address]
[2018-05-28] MEDS ORDERED: TRAMADOL HCL 50 MG TABLET PO ONE (16:55)
--- NOTE | 2018-05-28 17:03 | ER Document Report ---
ED Fall - General Chief Complaint: Fall Stated Complaint: FALL,LEFT WRIST PAIN Time Seen by Provider: 05/28/18 15:43 Notes: Patient was wearing slippers that supposedly do not slip, but hers slipped and she skidded and fell today did not hit her head or lose consciousness. Denies neck pain. She is complaining of pain in her left hip, left shoulder, left wrist and hand. Patient has had previous surgery on the left hip. Daughter who is here with the patient says that patient is acting her usual normal self. Patient also has an eschar on the top of her right foot from where she dropped something on the foot about a month ago and was seen here and sutured. The right foot has remained swollen somewhat and the tissue adjacent to the eschar is pink colored. However, both the patient and her daughter say that the foot actually looks better each day and appears to be improving. They are most concerned is about the swelling which I advised elevating the foot in a proper manner. Patient is right-hand dominant. TRAVEL OUTSIDE OF THE [place] IN LAST 30 DAYS: No - Related data Allergies/Adverse Reactions: aspirin [Aspirin] Allergy (Severe, Verified 05/28/18 15:38) Swelling of Throat morphine [Morphine] Allergy (Intermediate, Verified 05/28/18 15:38) Penicillins Allergy (Intermediate, Verified 05/28/18 15:38) fentanyl [Fentanyl] Allergy (Verified 05/28/18 15:38) tachycardia, apnea, "feels like room is closing in" hydromorphone HCl [From Dilaudid] Allergy (Verified 05/28/18 15:38) "feels like throat is closing" Iodinated Contrast- Oral and IV Dye [IV Dye, Iodine Containing] Allergy ( Verified 05/28/18 15:38) Sulfa (Sulfonamide Antibiotics) Allergy (Verified 05/28/18 15:38) Past Medical History - Social History Smoking Status: Never Smoker Chew tobacco use (# tins/day): No Frequency of alcohol use: None Drug Abuse: None Family History: Reviewed & Not Pertinent Patient has suicidal ideation: No Patient has homicidal ideation: No - Past Medical History Cardiac Medical History: Reports: Hx Hypercholesterolemia, Hx Hypertension Neurological Medical History: Reports: Hx Cerebrovascular Accident - 2010, Hx Seizures GI Medical History: Reports: Hx Gastroesophageal Reflux Disease Musculoskeletal Medical History: Reports Hx Arthritis Psychiatric Medical History: Reports: Hx Depression Past Surgical History: Reports: Hx Hysterectomy, Hx Neurologic Surgery - Brain aneurysm clip, Hx Orthopedic Surgery - Lt hip fx repair, Hx Thyroid Surgery - partial - Immunizations Hx Diphtheria, Pertussis, Tetanus Vaccination: No Hx Pneumococcal Vaccination: 11/22/11 Review of Systems - Review of Systems Notes: REVIEW OF SYSTEMS: CONSTITUTIONAL : Denies fever. EENT: Denies eye, ear, nose or mouth or throat pain or other symptoms. CARDIOVASCULAR: Denies chest pain. RESPIRATORY: Denies cough, chest congestion, or shortness of breath. GASTROINTESTINAL: Denies abdominal pain or nausea, vomiting, or diarrhea. GENITOURINARY: Denies difficulty or painful urinating, urinary frequency, blood in urine. MUSCULOSKELETAL: Denies back or neck pain. See HPI for areas of pain secondary to the fall. SKIN: Denies rash or skin lesions. NEUROLOGICAL: Denies LOC or altered mental status. Denies headache. Denies sensory loss or motor deficits. ALL OTHER SYSTEMS REVIEWED AND NEGATIVE. Physical Exam - Vital signs Vitals: Temp Pulse Resp BP Pulse Ox 98.4 F 71 14 154/72 H 94 05/28/18 15:28 05/28/18 15:28 05/28/18 15:28 05/28/18 15:28 05/28/18 15:28 Interpretation: Normal - Notes Notes: PHYSICAL EXAMINATION: GENERAL: Well-appearing, in no acute distress. HEAD: Atraumatic, normocephalic. EYES: Pupils equal round and reactive to light, extraocular movements intact. ENT: oropharynx clear without exudates. Moist mucous membranes. NECK: Normal range of motion, supple. No posterior midline tenderness. LUNGS: Breath sounds clear and equal bilaterally. HEART: Regular rate and rhythm without murmurs. ABDOMEN: Soft, nontender. No guarding or rebound. No masses. BACK: No tenderness throughout entire back. EXTREMITIES: Some pain to move the left hip, but not really limitation. Her left shoulder is also able to be moved throughout a fairly good wide range of motion without anything to suggest dislocation or fracture. Her left wrist shows some soft tissue swelling and is tender to the touch and slight deformity. Good capillary refill distally. NEUROLOGICAL: Normal speech, normal gait. Normal sensory, motor, and reflex exams. Awake, alert, and oriented x3. Cranial nerves normal. PSYCH: Normal mood, normal affect. SKIN: Warm, dry, no rashes. Course - Vital Signs Vital signs: Temp Pulse Resp BP Pulse Ox 97.5 F 81 16 154/93 H 97 05/28/18 17:16 05/28/18 17:16 05/28/18 17:16 05/28/18 17:16 05/28/18 17:16 - Diagnostic Test Radiology results interpreted by me: 05/28/18 20:03 X-rays show a impacted fracture of the distal radius and over the ulnar styloid Of the left wrist. Fairly good alignment. No other fractures seen. Procedures - Immobilization Left Wrist Pre-Proc Neuro Vasc Exam: Normal Immobilizer type: Sugar tong Performed by: PCT Post-Proc Neuro Vasc Exam: Normal Alignment checked and good: Yes Discharge - Discharge Clinical Impression: Fall, Fracture of left distal radius, Fracture of styloid process of left ulna Condition: Stable Disposition: HOME, SELF-CARE Additional Instructions: MUSCLE STRAIN: You have strained a muscle -- torn the fibers within the muscle. This often occurs with strenuous exertion, or during an injury that suddenly stretches the muscle. The seriousness of a strain varies. Some strains heal within days, others cause problems for months. X-rays cannot show a muscle strain. X-rays are taken only if symptoms suggest that a fracture could be present. The usual treatment of a muscle strain is rest and ice packs. Sometimes, a sling, splint, or crutches may be necessary to rest the muscle. The muscle can be used again once pain subsides. Severe strains require a special exercise and stretching program to prevent permanent stiffness and disability. Your doctor will advise you if this will be necessary. Call the doctor immediately if pain or swelling becomes severe, or if numbness or discoloration develop. CONTUSION: Your injury has resulted in a contusion -- a crushing of the deep tissues. No injury to important structures was detected during the physician's exam. Contusions vary in the amount of pain they cause, and in the length of time required for healing. Typically, the area will become bruised, and will remain painful to touch for two or three weeks. However, most patients are back to working and playing within a few days. After the initial period of rest and cold-packs, your symptoms (together with the doctor's recommendations) will determine how rapidly you can get back to full activity. Usually this means "do what feels okay, but don't do things that hurt." If re-examination was recommended, it's important to follow up as instructed. Call the doctor or return any time if pain increases, if swelling becomes severe, if you develop numbness or weakness in an injured extremity, or if any other alarming symptoms occur. Fractured Radius and Ulna Both bones of the forearm, the radius and the ulna, are fractured. This type of fracture is typically caused by falling onto the outstretched hand. The fractures are not serious, however, and should heal well with adequate protection. Your physician's evaluation shows the bones are now in good position to heal. A cast or splint is used to protect the fractures. For the first few days after the injury, the arm should be elevated and ice packed. Most often, a splint is used first, with a cast later on. Healing takes from four to eight weeks, depending on the age of the patient and the seriousness of the broken bones. Your doctor has explained the treatment plan. It's important that you follow up as instructed to prevent complications. Call the doctor or return at once if severe pain or swelling occur, or if the hand becomes numb, swollen, or discolored. USE OF TYLENOL (ACETAMINOPHEN): Acetaminophen may be taken for pain relief or fever control. It's much safer than aspirin, offering a wider range of "safe" dosages. It is safe during . Some brand names are Tylenol, Panadol, Datril, Anacin 3, Tempra, and Liquiprin. Acetaminophen can be repeated every four hours. The following are maximum recommended dosages: WEIGHT Dose Drops Elixir Chewable( 80mg) (LBS.) drprs=droppers tsp=teaspoon >89 pounds or adults 650 mg to 900 mg Acetaminophen can be repeated every four hours. Maximum dose not to exceed 4000 mg a day. These maximum recommended dosages are slightly higher than the dosages written on the product container, but these dosages are very safe and below the toxic dosage for acetaminophen. ICE PACKS: Apply ice packs frequently against the painful area. Many different schedules are recommended, such as "20 minutes on, 20 minutes off" or "one hour ice, two hours rest." If you need to work, you may need to go longer between ice treatments. You should plan to have the area ice packed AT LEAST one fourth of the time. The ice should be applied over the wrap, tape, or splint, or over a layer of cloth -- not directly against the skin. Some ice bags have a built-in cloth and can be put directly on the skin. Ultram Ultram is an excellent drug for pain relief. It is not a narcotic, but it works in a similar way. Ultram can take up to two hours for full effect. Although not addicting, Ultram is best avoided in patients with a history of drug abuse. Ultram should not be used with alcohol, sleeping pills, or narcotics. If you're prone to seizures, Ultram can make you more likely to have a seizure. Ultram can be hazardous when combined with MAO-inhibitor antidepressants (such as Nardil or Parnate). Be sure your doctor is aware of all medicines you are taking. Persons with severe liver or kidney disease should increase the time between doses of Ultram. Discuss this with your doctor if you're uncertain. Side effects of Ultram can include dizziness, nausea, constipation, sleepiness, and itching. (These side effects are also seen with narcotic pain medicines.) Please call your doctor if you have other disturbing effects. SPLINT PRECAUTIONS: A splint has been placed. This will protect the area while healing begins. Your problem does NOT normally require a cast. It MUST, however, be held still! Keep the splint on ALL THE TIME until instructed to remove it by the doctor. As you begin to use the area, be careful. You shouldn't do anything which causes discomfort -- you may disturb the injury even with the splint in place. After the initial period of rest and elevation, if splint does not prevent pain when you move, come back. You may require placement of a different splint , or a cast. If there is unexpected severe pain, or numbness, discoloration, or swelling beyond the splint, you should return at once. If you feel that the splint has broken or become loose, come back. FOLLOW-UP CARE: If you have been referred to a physician for follow-up care, call the physician s office for an appointment as you were instructed or within the next two days. If you experience worsening or a significant change in your symptoms, notify the physician immediately or return to the Emergency Department at any time for re-evaluation.. Follow-up with Dr. Pretty or another orthopedist of your choice in 1 week. Prescriptions: Tramadol HCl 50 mg PO Q6HP PRN #12 tablet PRN Reason: Referrals: CATALINO PRETTY MD [ACTIVE STAFF] - Follow up in 1 week
[2018-05-28 17:25] VITALS: BP 154/93
== END 2018-05-28 17:25 | disposition home or self-care (01) ==
LOC: ER 15:22
PROC: 2W3DX1Z Immobilization of Left Lower Arm using Splint (ICD-10-PCS; principal; 2018-05-28)
DX: S52.502A Unspecified fracture of the lower end of left radius, initial encounter for closed fracture (principal); S52.612A Displaced fracture of left ulna styloid process, initial encounter for closed fracture; M25.552 Pain in left hip; M25.512 Pain in left shoulder; M79.642 Pain in left hand; W01.0XXA Fall on same level from slipping, tripping and stumbling without subsequent striking against object, initial encounter; Y92.009 Unspecified place in unspecified non-institutional (private) residence as the place of occurrence of the external cause; E78.00 Pure hypercholesterolemia, unspecified; I10 Essential (primary) hypertension; Z88.6 Allergy status to analgesic agent; Z88.0 Allergy status to penicillin; Z88.2 Allergy status to sulfonamides; Z86.73 Personal history of transient ischemic attack (TIA), and cerebral infarction without residual deficits; Z90.710 Acquired absence of both cervix and uterus
CPT/HCPCS: 99283; 73630; 73502; 73030; 73110; 29125; A9270

== ENCOUNTER → 2018-06-23 | Outpatient (CLI) | payer MEDICARE, OTHER ==
[2018-06-23 15:20] LABS: ABSOLUTE BASOPHILS # (AUTO) 0.1 10^3/uL (0.0-0.2); ABSOLUTE EOSINOPHILS # (AUTO) 0.2 10^3/uL (0.0-0.6); ABSOLUTE LYMPHOCYTES (AUTO) 2.4 10^3/uL (0.5-4.7); ABSOLUTE MONOCYTES (AUTO) 0.7 10^3/uL (0.1-1.4); ABSOLUTE NEUT (AUTO) 4.2 10^3/uL (1.7-8.2); EOSINOPHILS % (AUTO) 2.3 % (0-6); HEMATOCRIT 37.1 % (36.0-47.0); HEMOGLOBIN 12.5 g/dL (12.0-15.5); LYMPHOCYTES % (AUTO) 31.5 % (13-45); MEAN CORPUSCULAR HGB CONC 33.7 g/dL (32.0-36.0); MEAN CORPUSCULAR VOLUME 83 fl (80-97); MONOCYTES % (AUTO) 9.3 % (3-13); PLATELET COUNT 261 10^3/uL (150-450); RED BLOOD COUNT 4.48 10^6/uL (3.72-5.28); RED CELL DISTRIBUTION WIDTH 14.8 % (11.5-14.0); SEGMENTED NEUTROPHILS % (AUTO) 55.9 % (42-78); TOTAL CELLS COUNTED % (AUTO) 100 %; WHITE BLOOD COUNT 7.5 10^3/uL (4.0-10.5)
[2018-06-23 15:56] LABS: ALANINE AMINOTRANSFERASE 12 U/L (9-52); ALKALINE PHOSPHATASE 84 U/L (38-126); ANION GAP 12 (5-19); ASPARTATE AMINO TRANSFERASE 16 U/L (14-36); BILIRUBIN,DIRECT 0.4 mg/dL (0.0-0.4); BILIRUBIN,TOTAL 0.4 mg/dL (0.2-1.3); BLOOD UREA NITROGEN 29 mg/dL (7-20); C-REACTIVE PROTEIN 6.8 mg/L (<10.0); CALCIUM 9.6 mg/dL (8.4-10.2); CARBON DIOXIDE 31 mmol/L (22-30); CHLORIDE 102 mmol/L (98-107); GLUCOSE 93 mg/dL (75-110); POTASSIUM 3.4 mmol/L (3.6-5.0); TOTAL PROTEIN 7.2 g/dL (6.3-8.2)
[2018-06-23 16:00] LABS: ERYTHROCYTE SEDIMENTATION RATE 31 mm/hr (0-30)
== END ==
LOC: OD 14:46
PROVIDERS: ATTEND Plastic Surgery
DX: L97.512 Non-pressure chronic ulcer of other part of right foot with fat layer exposed (principal)
CPT/HCPCS: 36415; 80053; 85025; 85652; 86140

== ENCOUNTER → 2018-06-30 | Outpatient (CLI) | payer MEDICARE, OTHER ==
--- NOTE | 2018-06-30 11:50 | RADIOLOGY REPORT (SQ) ---
EXAM DESCRIPTION: FOOT RIGHT COMPLETE COMPLETED DATE/TIME: 06/30/2018 10:06 am REASON FOR STUDY: NON-PRS CHRONIC ULCER OTH PRT RIGHT FOOT W FAT LAYER EXPOSED (L97.512) L97.512 NO N-PRS CHRONIC ULCER OTH PRT RIGHT FOOT W FAT LAYER COMPARISON: None. NUMBER OF VIEWS: Three views. TECHNIQUE: AP, lateral and oblique radiographic images acquired of the right foot. LIMITATIONS: None. FINDINGS: MINERALIZATION: Osteopenia. BONES: No acute fracture or dislocation. No worrisome bone lesions. JOINTS: No effusions. SOFT TISSUES: No foreign body. OTHER: No other significant finding. IMPRESSION: No evidence of fracture or osteomyelitis. TECHNICAL DOCUMENTATION: JOB ID: [id number] [employer]- All Rights Reserved Reading location - IP/workstation name: [email or web address]
--- NOTE | 2018-07-01 08:08 | XCELERA REPORT ---
[address] [address] Lower Extremity Arterial Evaluation Name: ADE DUNAWAY Age: 87 yrs Gender: Female : 1930 Patient Status: Outpatient Patient Location: Study Date: 06/30/2018 10:20 AM Procedure: A color flow and duplex scan of the lower extremity arteries was performed bilaterally with velocity and waveform anaylsis. Reason For Study: ULCER Ordering Physician: JUAN PAINTING Performed By: Live Ozuna Measurements and Calculations Right Left [employer]ER PSV 123.6 73.2 cm/sec Prox PFA PSV -109.6 -64.9 cm/sec Prox SFA PSV 93.6 70.3 cm/sec Mid SFA PSV -98.1 -108.1cm/sec Dist SFA PSV -135.9 -64.0 cm/sec Prox Pop A PSV 46.5 53.7 cm/sec Dist BEENA PSV 92.1 96.5 cm/sec Dist ROD PULLER PSV 32.2 48.7 cm/sec Renzo Pedis PSV -105.0 -105.5cm/sec Right Side Arterial Evaluation Normal velocity and triphasic waveforms noted from the Common Femoral artery to the infrageniculate vessels. 0 % stenosis . Ankle Brachial index declined. Left Side Arterial Evaluation Normal velocity and triphasic waveforms noted from the Common Femoral artery to the Anterior Tibal. Biphasic with preserved velocity in the Posterior Tibial. 0-19 % stenosis . At the Posterior Tibal artery. Ankle Brachial index declined. Interpretation Summary No hemodynamically significant lesions in the right lower extremity only, on duplex imaging, at rest. Mild hemodynamically significant lesions in the left lower extremity only, on duplex imaging, at rest. : JUAN PAINTING > Rey Teran
--- NOTE | 2018-07-01 12:23 | XCELERA REPORT ---
[address] [address] Lower Extremity Venous Evaluation Procedure: A bilateral duplex scan of the lower extremity veins was performed. The evaluation included responses to compression and other maneuvers with patient in the supine and standing positions to assess venous insufficiency. Right Sided Venous Evaluation Deep venous system evaluatiion shows patent veins with no obstruction or significant reflux identified. Sapheno Femoral junction: no reflux. Femoral vein reflux: no reflux. Greater Saphenous vein, Proximal thigh: reflux: no reflux. Greater Saphenous vein, Distal thigh: reflux: no reflux. Greater Saphenous vein, Proximal below knee: reflux: no reflux. No significant Perforators identified. Left Sided Venous Evaluation Deep venous system evaluatiion shows patent veins with no obstruction or significant reflux identified. Sapheno Femoral junction: no reflux. Femoral vein reflux: no reflux. Greater Saphenous vein, Proximal thigh: reflux: no reflux. Greater Saphenous vein, Distal thigh: reflux: no reflux. Greater Saphenous vein, Proximal below knee: reflux: no reflux. No significant Perforators identified. Interpretation Summary No duplex evidence of DVT or obstruction in the bilateral lower extremities. No significant deep or superficial reflux noted. Name: ADE DUNAWAY Age: 87 yrs Gender: Female : 1930 Patient Status: Outpatient Patient Location: Study Date: 06/30/2018 10:42 AM Reason For Study: ULCER Ordering Physician: JUAN PAINTING Performed By: Live Ozuna : JUAN PAINTING > Rey Teran
== END ==
LOC: SP 09:28
PROVIDERS: ATTEND Plastic Surgery
DX: L97.512 Non-pressure chronic ulcer of other part of right foot with fat layer exposed (principal); M85.871 Other specified disorders of bone density and structure, right ankle and foot
CPT/HCPCS: 93925; 93970

== ENCOUNTER 2018-07-26 18:41 | Emergency (ER) | payer MEDICARE ==
--- NOTE | 2018-07-26 20:14 | ER Document Report ---
ED Medical Screen (RME) - General Chief Complaint: Altered Mental Status Stated Complaint: PSYCH EVAL Time Seen by Provider: 07/26/18 20:12 Mode of Arrival: Ambulatory Information source: Patient Notes: 87-year-old female presents with her daughter who is concerned for increasing confusion, visual hallucinations. Daughter reports that over the last few weeks the patient has become more confused. She is calling the police consistently. She reports frequent falls and increasing weakness. I have greeted and performed a rapid initial assessment of this patient. A comprehensive ED assessment and evaluation of the patient, analysis of test results and completion of medical decision making process we will be contacted by additional ED providers. PHYSICAL EXAMINATION: GENERAL: Well-appearing, well-nourished and in no acute distress. HEAD: Atraumatic, normocephalic. EYES: Pupils equal round extraocular movements intact, conjunctiva are normal. ENT: Nares patent NECK: Normal range of motion LUNGS: No respiratory distress Musculoskeletal: Swelling of the left hand and wrist NEUROLOGICAL: Normal speech, alert and oriented 4 PSYCH: Normal mood, normal affect. SKIN: Warm, Dry, normal turgor, no rashes or lesions noted. TRAVEL OUTSIDE OF THE [place] IN LAST 30 DAYS: No - HPI Onset: Other Quality of pain: No pain Associated Symptoms: None. denies: Chest pain Exacerbated by: Denies Relieved by: Denies Similar symptoms previously: Yes Recently seen / treated by doctor: Yes - Related Data Smoking: Non-smoker Frequency of alcohol use: None Drug Abuse: None Allergies/Adverse Reactions: aspirin [Aspirin] Allergy (Severe, Verified 07/26/18 18:42) Swelling of Throat morphine [Morphine] Allergy (Intermediate, Verified 07/26/18 18:42) Penicillins Allergy (Intermediate, Verified 07/26/18 18:42) fentanyl [Fentanyl] Allergy (Verified 07/26/18 18:42) tachycardia, apnea, "feels like room is closing in" hydromorphone HCl [From Dilaudid] Allergy (Verified 07/26/18 18:42) "feels like throat is closing" Iodinated Contrast- Oral and IV Dye [IV Dye, Iodine Containing] Allergy ( Verified 07/26/18 18:42) Sulfa (Sulfonamide Antibiotics) Allergy (Verified 07/26/18 18:42) Past Medical History - Social History Chew tobacco use (# tins/day): No Frequency of alcohol use: None Drug Abuse: Marijuana - Past Medical History Cardiac Medical History: Reports: Hx Hypercholesterolemia, Hx Hypertension Denies: Hx Coronary Artery Disease, Hx Heart Attack Pulmonary Medical History: Denies: Hx Asthma, Hx Bronchitis, Hx COPD, Hx Pneumonia Neurological Medical History: Reports: Hx Cerebrovascular Accident - 2010, Hx Seizures Renal/ Medical History: Denies: Hx Peritoneal Dialysis GI Medical History: Reports: Hx Gastroesophageal Reflux Disease Musculoskeltal Medical History: Reports Hx Arthritis Psychiatric Medical History: Reports: Hx Depression Past Surgical History: Reports: Hx Hysterectomy, Hx Neurologic Surgery - Brain aneurysm clip, Hx Orthopedic Surgery - Lt hip fx repair, Hx Thyroid Surgery - partial. Denies: Hx Pacemaker - Immunizations Hx Diphtheria, Pertussis, Tetanus Vaccination: No Physical Exam - Vital signs Vitals: Temp Pulse Resp BP Pulse Ox 98.0 F 87 18 140/81 H 95 07/26/18 18:54 07/26/18 18:54 07/26/18 18:54 07/26/18 18:54 07/26/18 18:54 Course - Vital Signs Vital signs: Temp Pulse Resp BP Pulse Ox 98.0 F 87 18 140/81 H 95 07/26/18 18:54 07/26/18 18:54 07/26/18 18:54 07/26/18 18:54 07/26/18 18:54 Doctor's Discharge - Discharge Referrals: JUAN PAINTING MD [Primary Care Provider] - Follow up as needed
[2018-07-26 21:35] LABS: ABSOLUTE BASOPHILS # (AUTO) 0.1 10^3/uL (0.0-0.2); ABSOLUTE EOSINOPHILS # (AUTO) 0.2 10^3/uL (0.0-0.6); ABSOLUTE LYMPHOCYTES (AUTO) 2.7 10^3/uL (0.5-4.7); ABSOLUTE MONOCYTES (AUTO) 0.7 10^3/uL (0.1-1.4); ABSOLUTE NEUT (AUTO) 7.1 10^3/uL (1.7-8.2); BASOPHILS % (AUTO) 0.9 % (0-2); HEMATOCRIT 36.2 % (36.0-47.0); LYMPHOCYTES % (AUTO) 24.9 % (13-45); MEAN CORPUSCULAR VOLUME 82 fl (80-97); MONOCYTES % (AUTO) 6.8 % (3-13); PLATELET COUNT 277 10^3/uL (150-450); RED BLOOD COUNT 4.43 10^6/uL (3.72-5.28); RED CELL DISTRIBUTION WIDTH 14.5 % (11.5-14.0); SEGMENTED NEUTROPHILS % (AUTO) 65.4 % (42-78); TOTAL CELLS COUNTED % (AUTO) 100 %; WHITE BLOOD COUNT 10.9 10^3/uL (4.0-10.5)
[2018-07-26 21:48] LABS: ALANINE AMINOTRANSFERASE 17 U/L (9-52); ALBUMIN 4.2 g/dL (3.5-5.0); ALKALINE PHOSPHATASE 86 U/L (38-126); ANION GAP 12 (5-19); ASPARTATE AMINO TRANSFERASE 18 U/L (14-36); BILIRUBIN,DIRECT 0.3 mg/dL (0.0-0.4); BILIRUBIN,TOTAL 0.4 mg/dL (0.2-1.3); BLOOD UREA NITROGEN 22 mg/dL (7-20); CALCIUM 9.7 mg/dL (8.4-10.2); CARBON DIOXIDE 27 mmol/L (22-30); CHLORIDE 101 mmol/L (98-107); GLUCOSE 96 mg/dL (75-110); POTASSIUM 3.3 mmol/L (3.6-5.0); TOTAL PROTEIN 7.3 g/dL (6.3-8.2)
[2018-07-26] MEDS ORDERED: POTASSIUM CHLORIDE 10 MEQ CAPSULE.ER PO ONE (22:35)
[2018-07-26 23:17] LABS: APPEARANCE,URINE SLIGHTLY-CLOUDY; BILIRUBIN,URINE NEGATIVE (NEGATIVE); COLOR,URINE YELLOW; GLUCOSE, URINE NEGATIVE (NEGATIVE); KETONES,URINE NEGATIVE (NEGATIVE); LEUKOCYTE ESTERASE,URINE LARGE (NEGATIVE); NITRITE,URINE NEGATIVE (NEGATIVE); PROTEIN,URINE NEGATIVE (NEGATIVE); URINE SPECIFIC GRAVITY 1.013; UROBILINOGEN,URINE NEGATIVE mg/dL (<2.0)
--- NOTE | 2018-07-26 23:27 | RADIOLOGY REPORT (SQ) ---
EXAM DESCRIPTION: CT HEAD WITHOUT IV CONTRAST COMPLETED DATE/TME: 07/26/2018 20:14 CLINICAL HISTORY: 87 years Female, Fall increasing confusion COMPARISON: 09.29.17 TECHNIQUE: No contrast. Coronal and sagittal reformat. This exam was performed according to our departmental dose-optimization program, which includes automated exposure control, adjustment of the mA and/or kV according to patient size and/or use of iterative reconstruction technique. FINDINGS: No hemorrhage. Moderate encephalomalacia of the right frontal temporal lobe, mild ex vacuo enlargement right lateral ventricle. Right frontal craniotomy with osteotomy plate's. Consultation-the anterior right middle fossa. No mass, mass effect, or midline shift. Atherosclerosis. Brain and extra-axial structures appear otherwise intact. IMPRESSION: No acute findings. Right frontotemporal encephalomalacia. Right craniotomy.
--- NOTE | 2018-07-26 23:27 | ER Document Report ---
ED General - General Chief Complaint: Altered Mental Status Stated Complaint: PSYCH EVAL Time Seen by Provider: 07/26/18 20:12 Mode of Arrival: Ambulatory Notes: Patient is a 88-year-old female who presents to the emergency department with her daughter for increased confusion and hallucinations. Patient denies any physical symptoms. Daughter reports that over the last couple of weeks patient has been confused thinking people are in her house and has been calling the police on her new neighbors. TRAVEL OUTSIDE OF THE [place] IN LAST 30 DAYS: No - Related Data Allergies/Adverse Reactions: aspirin [Aspirin] Allergy (Severe, Verified 07/26/18 18:42) Swelling of Throat morphine [Morphine] Allergy (Intermediate, Verified 07/26/18 18:42) Penicillins Allergy (Intermediate, Verified 07/26/18 18:42) fentanyl [Fentanyl] Allergy (Verified 07/26/18 18:42) tachycardia, apnea, "feels like room is closing in" hydromorphone HCl [From Dilaudid] Allergy (Verified 07/26/18 18:42) "feels like throat is closing" Iodinated Contrast- Oral and IV Dye [IV Dye, Iodine Containing] Allergy ( Verified 07/26/18 18:42) Sulfa (Sulfonamide Antibiotics) Allergy (Verified 07/26/18 18:42) Past Medical History - General Information source: Patient - Social History Smoking Status: Never Smoker Chew tobacco use (# tins/day): No Frequency of alcohol use: None Drug Abuse: Marijuana Family History: Reviewed & Not Pertinent Patient has suicidal ideation: No Patient has homicidal ideation: No - Past Medical History Cardiac Medical History: Reports: Hx Hypercholesterolemia, Hx Hypertension Denies: Hx Coronary Artery Disease, Hx Heart Attack Pulmonary Medical History: Denies: Hx Asthma, Hx Bronchitis, Hx COPD, Hx Pneumonia Neurological Medical History: Reports: Hx Cerebrovascular Accident - 2010, Hx Seizures Renal/ Medical History: Denies: Hx Peritoneal Dialysis GI Medical History: Reports: Hx Gastroesophageal Reflux Disease Musculoskeletal Medical History: Reports Hx Arthritis Psychiatric Medical History: Reports: Hx Depression Past Surgical History: Reports: Hx Hysterectomy, Hx Neurologic Surgery - Brain aneurysm clip, Hx Orthopedic Surgery - Lt hip fx repair, Hx Thyroid Surgery - partial. Denies: Hx Pacemaker - Immunizations Hx Diphtheria, Pertussis, Tetanus Vaccination: No Hx Pneumococcal Vaccination: 11/22/11 Physical Exam - Vital signs Vitals: Temp Pulse Resp BP Pulse Ox 98.0 F 87 18 140/81 H 95 07/26/18 18:54 07/26/18 18:54 07/26/18 18:54 07/26/18 18:54 07/26/18 18:54 - Notes Notes: PHYSICAL EXAMINATION: GENERAL: Well-appearing, well-nourished and in no acute distress. HEAD: Atraumatic, normocephalic. EYES: Pupils equal round and reactive to light, extraocular movements intact, conjunctiva are normal. ENT: Nares patent, oropharynx clear without exudates. Moist mucous membranes. NECK: Normal range of motion, supple without lymphadenopathy LUNGS: Breath sounds clear to auscultation bilaterally and equal. No wheezes rales or rhonchi. HEART: Regular rate and rhythm without murmurs ABDOMEN: Soft, nontender, nondistended abdomen. No guarding, no rebound. No masses appreciated. Female : deferred Musculoskeletal: Normal range of motion, no pitting or edema. No cyanosis. NEUROLOGICAL: Cranial nerves grossly intact. Normal speech, normal gait. Normal sensory, motor exams PSYCH: Normal mood, normal affect. SKIN: Warm, Dry, normal turgor, no rashes or lesions noted. Course - Re-evaluation Re-evalutation: Alert and oriented 88-year-old female who appears well presenting with daughter' s complaint of possible confusion. Head CT is unremarkable, CBC and comprehensive are unremarkable other than mild hypokalemia. Urinalysis with large leukocyte esterase as well as [address] patient on p.o. antibiotics for urinary tract infection and discharged home as her vital signs have been stable. - Vital Signs Vital signs: Temp Pulse Resp BP Pulse Ox 97.2 F 79 18 153/77 H 95 07/27/18 00:29 07/27/18 00:29 07/27/18 00:29 07/27/18 00:29 07/27/18 00:29 - Laboratory Result Diagrams: 07/26/18 20:52 07/26/18 20:52 Laboratory results interpreted by me: 07/26/18 07/26/18 07/26/18 20:52 20:52 22:35 WBC 10.9 H RDW 14.5 H Potassium 3.3 L BUN 22 H Est GFR ( Amer) 53 L Est GFR (Non-Af Amer) 43 L Ur Leukocyte Esterase LARGE H Discharge - Discharge Clinical Impression: Urinary tract infection Qualifiers: Urinary tract infection type: site unspecified Hematuria presence: without hematuria Qualified Code(s): N39.0 - Urinary tract infection, site not specified Condition: Stable Disposition: HOME, SELF-CARE Additional Instructions: URINARY TRACT INFECTION: Your evaluation indicates that you have a urinary tract infection. This is due to germs growing in the bladder. This is a common problem. This infection usually responds quickly to antibiotics. Your antibiotic should be taken exactly as prescribed. Drink plenty of fluids -- three to four quarts a day. Occasionally, a bladder anesthetic will be prescribed to help stop the feeling of urgency until the antibiotic has a chance to clear the infection. This may cause your urine to be dark orange. Certain urine infections require a culture. If the doctor obtained a culture, the results will be back in two days. You should call to see if a change in treatment is needed. A repeat urinalysis after you finish treatment is often recommended. The physician will let you know if further testing is required. Call the doctor if you develop fever, chills, flank pain, inability to urinate, or blood in the urine. ANTIBIOTIC THERAPY: You have been given an antibiotic prescription. It's important that you take all the medication, unless instructed otherwise by your physician. Failure to complete the entire course can result in relapse of your condition. Common side effects of antibiotics include nausea, intestinal cramping, or diarrhea. Women may develop vaginal yeast infections, and babies can get yeast (thrush) in the mouth following the use of antibiotics. Contact your physician if you develop significant side effects from this medication. Allergy to this antibiotic can result in hives, wheezing, faintness, or itching. If symptoms of allergy occur, stop the medication and call the doctor. NITROFURANTOIN (MACRODANTIN, MACROBID): You have received a prescription for nitrofurantoin (Macrodantin). This antibiotic is used for urinary tract infections. Women who are or nursing should notify the physician before taking this medicine. If you have ever had a problem caused by this medication in the past, be sure the physician is aware of it. Common side effects of this medicine include nausea, vomiting, or decreased appetite. Notify your physician if these side effects become severe. Immediately stop this medicine and call the physician if you develop cough , shortness of breath, chest pain, weakness, jaundice (yellow color of the skin and whites of the eyes), or a skin rash. FOLLOW-UP CARE: If you have been referred to a physician for follow-up care, call the physician s office for an appointment as you were instructed or within the next two days. If you experience worsening or a significant change in your symptoms, notify the physician immediately or return to the Emergency Department at any time for re-evaluation. Your blood work and head CT were normal today. The urine test shows that you have a urinary tract infection. Please take the antibiotics as prescribed. Please call your primary care provider and get a follow-up appointment for this week. Please continue all of your home medications as prescribed. We will send a urine culture, we will call you if there are any abnormalities. Prescriptions: Nitrofurantoin/Nitrofuran Mac [Macrobid 100 mg Capsule] 1 tab PO BID #20 capsule Referrals: ALAYNA LARRY MD [ACTIVE STAFF] - Follow up as needed
[2018-07-26] MEDS ORDERED: LEVETIRACETAM 500 MG TABLET PO ONE (23:28)
[2018-07-26] MEDS ORDERED: NITROFURANTOIN MONOHYD/M-CRYST 100 MG CAPSULE PO ONE (23:31)
[2018-07-27 00:30] VITALS: BP 153/77
== END 2018-07-27 00:30 | disposition home or self-care (01) ==
LOC: ER 18:41
DX: N39.0 Urinary tract infection, site not specified (principal); R41.82 Altered mental status, unspecified; R44.3 Hallucinations, unspecified; E78.00 Pure hypercholesterolemia, unspecified; I10 Essential (primary) hypertension; Z88.6 Allergy status to analgesic agent; Z88.0 Allergy status to penicillin; Z86.73 Personal history of transient ischemic attack (TIA), and cerebral infarction without residual deficits; Z90.710 Acquired absence of both cervix and uterus
CPT/HCPCS: 99285; 36415; 87086; 85025; 80053; 81001; 70450; A9270 ×3; J8499

== ENCOUNTER 2019-01-30 13:29 | Observation (INO) | payer MEDICARE, OTHER ==
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
[2019-01-30 14:26] LABS: ABSOLUTE BASOPHILS # (AUTO) 0.1 10^3/uL (0.0-0.2); ABSOLUTE EOSINOPHILS # (AUTO) 0.2 10^3/uL (0.0-0.6); ABSOLUTE LYMPHOCYTES (AUTO) 1.7 10^3/uL (0.5-4.7); ABSOLUTE MONOCYTES (AUTO) 0.6 10^3/uL (0.1-1.4); ABSOLUTE NEUT (AUTO) 3.5 10^3/uL (1.7-8.2); EOSINOPHILS % (AUTO) 2.7 % (0-6); HEMATOCRIT 34.5 % (36.0-47.0); HEMOGLOBIN 11.9 g/dL (12.0-15.5); LYMPHOCYTES % (AUTO) 28.2 % (13-45); MEAN CORPUSCULAR HEMOGLOBIN 27.9 pg (27.0-33.4); MEAN CORPUSCULAR HGB CONC 34.5 g/dL (32.0-36.0); MEAN CORPUSCULAR VOLUME 81 fl (80-97); MONOCYTES % (AUTO) 9.5 % (3-13); PLATELET COUNT 264 10^3/uL (150-450); RED BLOOD COUNT 4.26 10^6/uL (3.72-5.28); RED CELL DISTRIBUTION WIDTH 15.6 % (11.5-14.0); SEGMENTED NEUTROPHILS % (AUTO) 58.6 % (42-78); TOTAL CELLS COUNTED % (AUTO) 100 %
[2019-01-30 14:38] LABS: ALANINE AMINOTRANSFERASE 17 U/L (9-52); ALBUMIN 4.4 g/dL (3.5-5.0); ALKALINE PHOSPHATASE 83 U/L (38-126); ANION GAP 12 (5-19); ASPARTATE AMINO TRANSFERASE 20 U/L (14-36); BILIRUBIN,DIRECT 0.2 mg/dL (0.0-0.4); BILIRUBIN,TOTAL 0.6 mg/dL (0.2-1.3); BLOOD UREA NITROGEN 28 mg/dL (7-20); CALCIUM 9.8 mg/dL (8.4-10.2); CARBON DIOXIDE 29 mmol/L (22-30); CHLORIDE 99 mmol/L (98-107); GLUCOSE 95 mg/dL (75-110); LIPASE 358.8 U/L (23-300); POTASSIUM 3.6 mmol/L (3.6-5.0); SODIUM 140.3 mmol/L (137-145)
[2019-01-30 14:52] LABS: NT PRO BNP 288 pg/mL (<450)
[2019-01-30 14:54] LABS: TROPONIN I < 0.012 ng/mL
[2019-01-30] MEDS ORDERED: NORMAL SALINE 1000 ML 1,000 ML IV ONE (14:55)
--- NOTE | 2019-01-30 15:20 | RADIOLOGY REPORT (SQ) ---
EXAM DESCRIPTION: HIP RIGHT AP/LATERAL COMPLETED DATE/TIME: 01/30/2019 3:09 pm REASON FOR STUDY: pain COMPARISON: None. NUMBER OF VIEWS: Two views. TECHNIQUE: AP pelvis and additional frog-leg view of the right hip. LIMITATIONS: None. FINDINGS: MINERALIZATION: Osteopenia. RIGHT HIP: No fracture dislocation. Moderate superior joint space loss and osteophytosis. LEFT HIP: No fracture or dislocation. Status post screw fixation of the left femoral neck. No worri some bone lesions. PUBIS AND ISCHIUM: No fracture. PELVIS: No fracture. SACRUM: No fracture or dislocation. No worrisome bone lesions. LOWER LUMBAR SPINE: No fracture or dislocation. No worrisome bone lesions. Severe disc degenerative disease of the included lower lumbar spine. SOFT TISSUES: No findings. OTHER: No other significant finding. IMPRESSION: No fracture or dislocation of the right hip. Moderate osteoarthritis. Please note that plain radiographs may be insensitive for hip or pelvic fracture in the setting of osteopenia; consid er MRI to more sensitively evaluate for marrow edema if fracture is suspected. TECHNICAL DOCUMENTATION: JOB ID: [id number] [employer]- All Rights Reserved Reading location - IP/workstation name: [email or web address]
--- NOTE | 2019-01-30 15:25 | RADIOLOGY REPORT (SQ) ---
EXAM DESCRIPTION: CHEST 2 VIEWS COMPLETED DATE/TIME: 01/30/2019 3:09 pm REASON FOR STUDY: CP COMPARISON: 01/10/2013 EXAM PARAMETERS: NUMBER OF VIEWS: two views TECHNIQUE: Digital Frontal and Lateral radiographic views of the chest acquired. RADIATION DOSE: NA LIMITATIONS: none FINDINGS: LUNGS AND PLEURA: The patchy density localizes to the right lower lobe. The lungs are oth erwise clear. No pleural effusion or pneumothorax. MEDIASTINUM AND HILAR STRUCTURES: No masses or contour abnormalities. HEART AND VASCULAR STRUCTURES: Heart normal size. No evidence for failure. BONES: No acute findings. HARDWARE: None in the chest. OTHER: No other significant finding. IMPRESSION: In the appropriate clinical setting, patchy opacity localizing to the right lower lobe m ay represent a developing airspace process. TECHNICAL DOCUMENTATION: JOB ID: [id number] [employer]- All Rights Reserved Reading location - IP/workstation name: [email or web address]
[2019-01-30] MEDS ORDERED: IPRATROPIUM/ALBUTEROL 0.5-2.5 MG/3 ML AMPUL NEB PRN (16:25)
[2019-01-30] MEDS ORDERED: LEVOTHYROXINE SODIUM 0.05 MG TABLET PO ONE (17:00)
[2019-01-30] MEDS ORDERED: ASPIRIN 325 MG TABLET PO ONE (17:00)
[2019-01-30] MEDS ORDERED: NITROGLYCERIN 10 MG (0.4 MG/HR) PATCH.TD24 TD ONE (17:00)
--- NOTE | 2019-01-30 17:08 | PDOC CONSULTATION ---
Consultation Consult Date: 01/30/19 Consult reason:: new LBBB on EKG History of Present Illness Admission Date/PCP: 01/30/19 16:45 ALAYNA LARRY MD History of Present Illness: ADE DUNAWAY is a 88 year old female With past medical history of a right MCA aneurysm status post clipping, CVA with left hemiparalysis, hypertension, hyperlipidemia, arthritis who comes in with complaints of right hip pain radiating down the leg as the primary reason for her coming to the ER. She also reported some chest discomfort yesterday at her house which she describes as a heartburn for which she is on ranitidine therapy at home. She does get short of breath on exertion but because of her left hemiparesis does not ambulate a lot. In the ER EKG showed a left bundle branch block patten which was new compared to her old EKG from 2017 and so we were consulted to evaluate the patient. At this time patient denies any chest pain o r acute shortness of breath. She has chronic weakness of her left side of the body with the arm weaker than the leg. She claims that she is able to walk with support. Her daughter lives with her to take care of her. She denies history of cigarette smoking or alcohol abuse. She denies family history of coronary artery disease. Past Medical History Cardiac Medical History: Reports: Hyperlipidema, Hypertension Denies: Coronary Artery Disease, Myocardial Infarction Pulmonary Medical History: Denies: Asthma, Bronchitis, Chronic Obstructive Pulmonary Disease (COPD), Pneumonia Neurological Medical History: Reports: Seizures, Other - CVA GI Medical History: Reports: Gastroesophageal Reflux Disease Musculoskeltal Medical History: Reports: Arthritis Psychiatric Medical History: Reports: Depression Hematology: Denies: Anemia Past Surgical History Past Surgical History: Reports: Hysterectomy, Orthopedic Surgery - Lt hip fx repair, Other - Bilobed Right MCA aneurysm clipping in 2009 Denies: Pacemaker Social History Smoking Status: Unknown if Ever Smoked Frequency of Alcohol Use: None Hx Recreational Drug Use: No Family History Family History: Reviewed & Not Pertinent Parental Family History Reviewed: Yes Children Family History Reviewed: No Sibling(s) Family History Reviewed.: No Medication/Allergy Home Medications: Cetirizine HCl [Zyrtec 10 mg Chewable Tab] 10 mg PO QHS 01/10/13 Levothyroxine Sodium [Synthroid] 50 mcg PO QAM 02/24/13 Simvastatin 10 mg PO QHS 01/10/13 Ranitidine HCl 150 mg PO BID 07/08/17 Aripiprazole 1 ml PO DAILY 01/30/19 Duloxetine HCl 1 cap PO DAILY 01/30/19 Lamotrigine 4 tab PO BID 01/30/19 Losartan/Hydrochlorothiazide [Losartan-Hctz 50-12.5 mg Tab] 1 tab PO DAILY Allergies/Adverse Reactions: aspirin [Aspirin] Allergy (Severe, Verified 01/30/19 13:30) Swelling of Throat morphine [Morphine] Allergy (Intermediate, Verified 01/30/19 13:30) Penicillins Allergy (Intermediate, Verified 01/30/19 13:30) fentanyl [Fentanyl] Allergy (Verified 01/30/19 13:30) tachycardia, apnea, "feels like room is closing in" hydromorphone HCl [From Dilaudid] Allergy (Verified 01/30/19 13:30) "feels like throat is closing" Iodinated Contrast- Oral and IV Dye [IV Dye, Iodine Containing] Allergy (Verified 01/30/19 13:30) Sulfa (Sulfonamide Antibiotics) Allergy (Verified 01/30/19 13:30) Review of Systems Cardiovascular: PRESENT: dyspnea on exertion Gastrointestinal: PRESENT: heartburn Neurological: PRESENT: focal weakness Physical Exam Vital Signs: Temp Pulse Resp BP Pulse Ox 98.2 F 89 14 154/71 H 100 01/30/19 13:50 01/30/19 13:50 01/30/19 16:00 01/30/19 15:10 01/30/19 16:00 Intake & Output 01/29/19 01/30/19 01/31/19 06:59 06:59 06:59 Weight 77.2 kg General appearance: PRESENT: no acute distress, other - Left facial palsy noted. Head exam: PRESENT: atraumatic Neck exam: PRESENT: full ROM Respiratory exam: PRESENT: clear to auscultation jim Cardiovascular exam: PRESENT: +S1, +S2 Pulses: PRESENT: normal carotid pulses, normal radial pulses, normal dorsalis pedis pul Neurological exam: PRESENT: alert, altered, awake, oriented to person, oriented to place - Left hemiparesis noted. left arm weakness more than left leg. Results Laboratory Results: 01/30/19 14:00 01/30/19 14:00 01/30/19 01/30/19 14:00 14:00 WBC 6.0 RBC 4.26 Hgb 11.9 L Hct 34.5 L MCV 81 MCH 27.9 MCHC 34.5 RDW 15.6 H Plt Count 264 Seg Neutrophils % 58.6 Lymphocytes % 28.2 Monocytes % 9.5 Eosinophils % 2.7 Basophils % 1.0 Absolute Neutrophils 3.5 Absolute Lymphocytes 1.7 Absolute Monocytes 0.6 Absolute Eosinophils 0.2 Absolute Basophils 0.1 Sodium 140.3 Potassium 3.6 Chloride 99 Carbon Dioxide 29 Anion Gap 12 BUN 28 H Creatinine 1.63 H Est GFR ( Amer) 36 L Est GFR (Non-Af Amer) 30 L Glucose 95 Calcium 9.8 Total Bilirubin 0.6 AST 20 ALT 17 Alkaline Phosphatase 83 Total Protein 7.0 Albumin 4.4 Lipase 358.8 H 01/30/19 14:00 Troponin I < 0.012 NT-Pro-B Natriuret Pep 288 Impressions: Chest X-Ray 01/30/19 13:53 IMPRESSION: In the appropriate clinical setting, patchy opacity localizing to the right lower lobe may represent a developing airspace process. Hip/Pelvis X-Ray 01/30/19 14:13 IMPRESSION: No fracture or dislocation of the right hip. Moderate osteoarthritis. Please note that plain radiographs may be insensitive for hip or pelvic fracture in the setting of osteopenia; consider MRI to more sensitively evaluate for marrow edema if fracture is suspected. Assessment & Plan - Notes Notes: Reviewed EKG, labs and imaging tests. Patient appears euvolemic on exam at this time with blood pressure borderline elevated. Her chest pain symptoms were atypical and not related to exertion. Her EKG shows sinus rhythm with first- degree AV block and left bundle branch block pattern which is new compared to her EKG in 2017 and seen in the ER. She does have risk factors for atherosclerotic cardiovascular disease including previous cerebrovascular disease and history of hypertension along with advanced age. However she is not having any anginal sounding symptoms at this time. Will recommend a transthoracic echocardiogram and serial enzymes to rule out acute coronary syndrome. If echocardiogram shows preserved EF with no wall motion abnormalities and cardiac enzymes are negative patient can be followed as an outpatient for outpatient ischemia workup. Meanwhile recommend evaluation of her right hip pain and elevated lipase level noted. Continue with ARB therapy for hypertension and adjust antihypertensive therapy for optimal blood pressure control. Continue on statin therapy for risk factor reduction and aspirin as antiplatelet therapy. Further recommendations after reviewing echocardiogram.
--- NOTE | 2019-01-30 17:26 | EKG REPORT ---
SEVERITY:- ABNORMAL ECG - SINUS RHYTHM LEFT BUNDLE BRANCH BLOCK FIRST DEGREE AVB : Confirmed by: Asif Jacobson MD 30-Jan-2019 17:26:00
[2019-01-30] MEDS ORDERED: RANITIDINE HCL SYRUP 150 MG/10 ML UDCUP PO SCH (18:00)
[2019-01-30] MEDS: DEXTROSE 5%-NORMAL SALINE 1,000 ML IV PRN (18:22)
[2019-01-30] MEDS ORDERED: RANITIDINE HCL SYRUP 150 MG/10 ML UDCUP ONE (18:45)
--- NOTE | 2019-01-30 21:23 | HISTORY AND PHYSICAL E ---
History and Physical NAME: ADE DUNAWAY : 1930 AGE: 88Y ADMITTED: 01/30/2019 ROOM: 429 CHIEF COMPLAINT: Chest pain. HISTORY OF THE PRESENT ILLNESS: The patient is a pleasant 88-year-old female who has a past medical history of hypothyroidism, seizure disorder, CVA, hypertension, hyperlipidemia. She came to the emergency room with chest pain which started today, this morning, lasting 3 hours. There is no aggravating or alleviating factor. It is not associated with shortness of breath or nausea or vomiting. The patient does not have any past history of previous coronary artery disease. She is not a smoker. She has a family history of heart disease. Her son and daughter they both had CABG. 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 There is no cough, no fever, no paroxysmal nocturnal dyspnea, no orthopnea. REVIEW OF SYSTEMS: GENERAL: There is general weakness and fatigue. No fever, no chills. HEAD: No headache or dizziness EYES: No diplopia. EARS: No discharge from the ears. NOSE: There is no discharge from the nose. NECK: No difficulty swallowing or pain. CARDIOVASCULAR: As per History of the Present Illness. RESPIRATORY: No cough or wheezing or hemoptysis. GASTROINTESTINAL: No nausea, no vomiting, no diarrhea, no constipation. GENITOURINARY: No urgency, no frequency, no dysuria, no hematuria. ENDOCRINE: No polyuria, polyphagia, or polydipsia. NEUROLOGIC: Has history of stroke and seizure. PSYCHIATRIC: History of depression. PAST MEDICAL HISTORY: 1. Hypertension. 2. Hyperlipidemia. 3. Hypothyroidism. 4. CVA. 5. Aneurysm of the brain, status post clip. 6. GERD. 7. Depression. 8. Skin cancer. PAST SURGICAL HISTORY: Aneurysm clip placement. FAMILY HISTORY: History of coronary artery disease in the family. SOCIAL HISTORY: No smoker or drinker. She lives with her daughter. HOME MEDICATIONS: 1. Levothyroxine 50 mcg p.o. daily. 2. Simvastatin 10 mg daily. 3. Losartan/hydrochlorothiazide 50/12.5 mg daily. 4. Phenergan p.r.n. ALLERGIES: 1. MORPHINE. 2. ASPIRIN. 3. SULFA. 4. CONTRAST DYE. 5. DILAUDID. 6. PENICILLIN, CAUSING A SKIN RASH. PHYSICAL EXAMINATION: GENERAL: The patient looks well, not in distress. VITAL SIGNS: Blood pressure is 154/71, heart rate 82, afebrile, respiratory 14, saturation 100% room air. HEENT: Head is normocephalic, atraumatic. Pupils are round and reactive to light and accommodation bilaterally. Extraocular movements are intact. Ears; tympanic membranes are intact bilaterally. No discharge from the ears. No discharge from the nose. NECK: Supple. No increased JVD, no thyromegaly, and no lymphadenopathy. CARDIOVASCULAR: Normal S1, S2. Regular rate and rhythm. No murmur, no gallop. RESPIRATORY: Lungs are clear. ABDOMEN: Soft and nontender. MUSCULOSKELETAL: No edema. NEUROLOGIC: Awake, alert. Not oriented to time, place, and person. SKIN: No rash. HEMATOLOGIC/LYMPHOCYTIC: No anemia, no easy bruising. LABORATORY DATA: Sodium 140, potassium 3.6, creatinine 1.6. Troponin less than 0.12. White blood count 6.0, hemoglobin 11.9, hematocrit 35. DIAGNOSTIC STUDIES: EKG; left bundle branch block, which is new. IMAGING STUDIES: Chest x-ray; right lower lobe infiltrate. ASSESSMENT: 1. Chest pain, rule out myocardial infarction ([place]). 2. New left bundle branch block. 3. Hypertension. 4. Hypothyroidism. 5. Acute kidney injury (UTE) and chronic kidney disease (CKD) stage 3. 6. Dehydration. 7. Seizure disorder. PLAN: 1. We will admit the patient to telemetry for observation. 2. We will put the patient on aspirin, nitroglycerin p.r.n., beta blockers, metoprolol 12.5 mg twice a day. 3. Serial cardiac enzymes, 3 sets of cardiac enzymes, and EKG in the morning. 4. Cardiology consult, Dr. Palomares was consulted. 5. IV fluids, the patient looked dehydrated. D5 NS at 100 mL per hour. 6. Diet; cardiac diet. 7. Activity; commode privilege. 8. We will continue her home medication. 9. Echocardiogram also today or tomorrow by cardiology is ordered. 10. DVT prophylaxis. 11. GI prophylaxis. CODE STATUS: She is a full code. DICTATING PHYSICIAN: FLOR GASPAR M.D. [id number] PHY#: [id number] ID: [id number] JOB#: [id number] ACCT: [id number] cc:GRUPO FRANCIS M.D. >
[2019-01-30 21:27] LABS: CREATINE KINASE MB 0.77 ng/mL (<4.55)
[2019-01-30 21:33] LABS: TROPONIN I < 0.012 ng/mL
[2019-01-30] MEDS: ATORVASTATIN CALCIUM 20 MG TABLET PO SCH (22:25)
[2019-01-31 02:12] LABS: ABSOLUTE BASOPHILS # (AUTO) 0.1 10^3/uL (0.0-0.2); ABSOLUTE EOSINOPHILS # (AUTO) 0.2 10^3/uL (0.0-0.6); ABSOLUTE LYMPHOCYTES (AUTO) 2.3 10^3/uL (0.5-4.7); ABSOLUTE MONOCYTES (AUTO) 0.7 10^3/uL (0.1-1.4); ABSOLUTE NEUT (AUTO) 3.3 10^3/uL (1.7-8.2); BASOPHILS % (AUTO) 1.2 % (0-2); EOSINOPHILS % (AUTO) 3.4 % (0-6); HEMATOCRIT 29.6 % (36.0-47.0); HEMOGLOBIN 10.2 g/dL (12.0-15.5); LYMPHOCYTES % (AUTO) 35.1 % (13-45); MEAN CORPUSCULAR HEMOGLOBIN 27.8 pg (27.0-33.4); MEAN CORPUSCULAR HGB CONC 34.4 g/dL (32.0-36.0); MEAN CORPUSCULAR VOLUME 81 fl (80-97); MONOCYTES % (AUTO) 10.9 % (3-13); PLATELET COUNT 205 10^3/uL (150-450); RED BLOOD COUNT 3.66 10^6/uL (3.72-5.28); RED CELL DISTRIBUTION WIDTH 15.5 % (11.5-14.0); SEGMENTED NEUTROPHILS % (AUTO) 49.4 % (42-78); TOTAL CELLS COUNTED % (AUTO) 100 %; WHITE BLOOD COUNT 6.6 10^3/uL (4.0-10.5)
[2019-01-31 02:46] LABS: CREATINE KINASE MB 0.76 ng/mL (<4.55)
[2019-01-31 02:47] LABS: TROPONIN I < 0.012 ng/mL
--- NOTE | 2019-01-31 08:35 | EKG REPORT ---
SEVERITY:- ABNORMAL ECG - SINUS RHYTHM FIRST DEGREE AV BLOCK PROBABLE LATERAL INFARCT, OLD BORDERLINE PROLONGED QT INTERVAL : Confirmed by: Asif Jacobson MD 31-Jan-2019 08:34:58
[2019-01-31 08:56] LABS: ALANINE AMINOTRANSFERASE 14 U/L (9-52); ALBUMIN 4.6 g/dL (3.5-5.0); ALKALINE PHOSPHATASE 78 U/L (38-126); ANION GAP 13 (5-19); ASPARTATE AMINO TRANSFERASE 21 U/L (14-36); BILIRUBIN,DIRECT 0.4 mg/dL (0.0-0.4); BILIRUBIN,TOTAL 0.6 mg/dL (0.2-1.3); BLOOD UREA NITROGEN 21 mg/dL (7-20); CALCIUM 9.7 mg/dL (8.4-10.2); CARBON DIOXIDE 28 mmol/L (22-30); CHLORIDE 104 mmol/L (98-107); CREATINE KINASE 72 U/L (30-135); GLUCOSE 132 mg/dL (75-110); SODIUM 145.4 mmol/L (137-145); TOTAL PROTEIN 7.5 g/dL (6.3-8.2)
[2019-01-31 09:08] LABS: CREATINE KINASE MB 1.24 ng/mL (<4.55); TROPONIN I 0.014 ng/mL
[2019-01-31] MEDS: DEXTROSE 5%-NORMAL SALINE 1,000 ML IV PRN (09:11)
[2019-01-31] MEDS: LOSARTAN POTASSIUM 50 MG TABLET PO SCH (09:17)
[2019-01-31] MEDS: ENOXAPARIN SODIUM INJ 30 MG/0.3 ML DISP.SYRIN SUBCUT SCH (09:18)
[2019-01-31] MEDS: CETIRIZINE 10 MG TABLET PO SCH (09:18)
[2019-01-31] MEDS: POTASSIUM CHLORIDE 10 MEQ CAPSULE.ER PO SCH (11:49)
[2019-01-31] MEDS: ARIPIPRAZOLE 2 MG TABLET PO SCH (11:49)
[2019-01-31] MEDS: FAMOTIDINE 20 MG TABLET PO SCH (11:50)
--- NOTE | 2019-01-31 13:02 | PDOC PROGRESS REPORT ---
Subjective Progress Note for:: 01/31/19 Reason For Visit: CHEST PAIN Patient seen at bedside and denies any complaints of chest pain no shortness of breath overnight. She still has some right hip discomfort. Physical Exam Vital Signs: Temp Pulse Resp BP Pulse Ox 98.5 F 90 18 163/76 H 95 01/31/19 09:02 01/31/19 09:02 01/31/19 09:02 01/31/19 09:02 01/31/19 09:02 Intake & Output 01/30/19 01/31/19 02/01/19 06:59 06:59 06:59 Intake Total 2210 Balance 2210 Weight 80.4 kg General appearance: PRESENT: no acute distress Head exam: PRESENT: atraumatic, normocephalic - No JVD noted. Respiratory exam: PRESENT: clear to auscultation jim Cardiovascular exam: PRESENT: +S1, +S2 Pulses: PRESENT: normal radial pulses, normal dorsalis pedis pul Neurological exam: PRESENT: alert, altered, awake, oriented to person, oriented to place - Left hemiparesis noted with facial symmetry Results Laboratory Results: 01/31/19 02:01 01/31/19 08:15 01/30/19 01/30/19 01/31/19 14:00 14:00 02:01 WBC 6.0 6.6 RBC 4.26 3.66 L Hgb 11.9 L 10.2 L Hct 34.5 L 29.6 L MCV 81 81 MCH 27.9 27.8 MCHC 34.5 34.4 RDW 15.6 H 15.5 H Plt Count 264 205 Seg Neutrophils % 58.6 49.4 Lymphocytes % 28.2 35.1 Monocytes % 9.5 10.9 Eosinophils % 2.7 3.4 Basophils % 1.0 1.2 Absolute Neutrophils 3.5 3.3 Absolute Lymphocytes 1.7 2.3 Absolute Monocytes 0.6 0.7 Absolute Eosinophils 0.2 0.2 Absolute Basophils 0.1 0.1 Sodium 140.3 Potassium 3.6 Chloride 99 Carbon Dioxide 29 Anion Gap 12 BUN 28 H Creatinine 1.63 H Est GFR ( Amer) 36 L Est GFR (Non-Af Amer) 30 L Glucose 95 Calcium 9.8 Total Bilirubin 0.6 AST 20 ALT 17 Alkaline Phosphatase 83 Total Protein 7.0 Albumin 4.4 Lipase 358.8 H 01/31/19 08:15 WBC RBC Hgb Hct MCV MCH MCHC RDW Plt Count Seg Neutrophils % Lymphocytes % Monocytes % Eosinophils % Basophils % Absolute Neutrophils Absolute Lymphocytes Absolute Monocytes Absolute Eosinophils Absolute Basophils Sodium 145.4 H Potassium 3.0 L* Chloride 104 Carbon Dioxide 28 Anion Gap 13 BUN 21 H Creatinine 1.30 H Est GFR ( Amer) 47 L Est GFR (Non-Af Amer) 39 L Glucose 132 H Calcium 9.7 Total Bilirubin 0.6 AST 21 ALT 14 Alkaline Phosphatase 78 Total Protein 7.5 Albumin 4.6 Lipase 01/30/19 01/30/19 01/30/19 14:00 20:16 20:16 Creatine Kinase 57 CK-MB (CK-2) 0.77 Troponin I < 0.012 < 0.012 NT-Pro-B Natriuret Pep 288 01/31/19 01/31/19 01/31/19 02:01 02:01 08:15 Creatine Kinase 56 72 CK-MB (CK-2) 0.76 Troponin I < 0.012 NT-Pro-B Natriuret Pep 01/31/19 08:15 Creatine Kinase CK-MB (CK-2) 1.24 Troponin I 0.014 NT-Pro-B Natriuret Pep Impressions: Chest X-Ray 01/30/19 13:53 IMPRESSION: In the appropriate clinical setting, patchy opacity localizing to the right lower lobe may represent a developing airspace process. Hip/Pelvis X-Ray 01/30/19 14:13 IMPRESSION: No fracture or dislocation of the right hip. Moderate osteoarthritis. Please note that plain radiographs may be insensitive for hip or pelvic fracture in the setting of osteopenia; consider MRI to more sensitively evaluate for marrow edema if fracture is suspected. Assessment & Plan - Notes Notes: Reviewed labs, telemetry and imaging tests. Hypokalemia noted which is being supplemented. Reviewed her telemetry and she does have runs of PVCs and fluctuating left bundle branch block with narrow complex rhythm. Repeat EKG robi ws sinus rhythm with narrow QRS. It is likely that she has rate related left bundle branch block pattern. However due to her risk factors for atherosclerotic cardiovascular disease and new left bundle branch block pattern ischemia evaluation is indicated. Awaiting transthoracic echocardiogram today and based on that may consider ischemia evaluation with a noninvasive nuclear stress test tomorrow versus as an outpatient soon. Blood pressure elevated despite ARB therapy and consider addition of a low-dose beta-zabrina versus up titration of ARB therapy dose. Dr. Palomares will assume care of the patient for cardiology needs tomorrow. Patient allergic to aspirin and so not on antiplatelet therapy. Continue with statin therapy for risk factor reduction. - Time Time with patient: 15-25 minutes
--- NOTE | 2019-01-31 19:33 | PROGRESS NOTE E ---
Progress Note NAME: ADE DUNAWAY : 1930 AGE: 88Y DATE: 01/31/2019 ROOM: 429 SUBJECTIVE: The patient is a pleasant 88-year-old female who has a past medical history of right MCA aneurysm, status post clipping, CVA with a left hemiparalysis, hypertension, hyperlipidemia. She came complaining of right hip pain, radiating to the leg, and then in the emergency room she was complaining of chest pain. She was admitted to rule out OK. She also has a history of hypothyroidism and she is on Synthroid, losartan, hydrochlorothiazide. The patient does not have chest pain, feeling better. Blood pressure is still high at 163/76. OBJECTIVE: GENERAL: The patient is lying in bed, comfortable, not in distress. VITAL SIGNS: Temperature 98.5, heart rate 90, blood pressure 163/76, saturation 95% on room air. HEENT: Head normocephalic, atraumatic. Pupils round, reactive to light and accommodation bilaterally. Extraocular movements intact. Ears: Tympanic membranes intact bilaterally. No discharge from the ear. No discharge from the nose. NECK: Supple, no increased JVD, no thyromegaly, no lymphadenopathy. CARDIOVASCULAR: Normal S1, S2. Regular rate and rhythm. No murmur, no gallops. RESPIRATORY: Lungs clear. ABDOMEN: Soft. MUSCULOSKELETAL: No edema. NEUROLOGIC: Awake, alert. SKIN: No rash. LABORATORY DATA: White blood count 6.6, hemoglobin is 10.2. Creatinine is 1.3, potassium 3.0, sodium 145. ASSESSMENT AND PLAN: 1. CHEST PAIN, RULE OUT OK. OK WAS RULED OUT. Three sets of cardiac enzymes were negative. The patient was seen by cardiology, Dr. Palomares recommended to order echocardiogram. It has been ordered, to be done today. 2. HYPOKALEMIA. Potassium is 3.0. We are going to replace it today. We will use p.o. 40 mEq p.o. daily. We will check his magnesium. The EKG showed prolonged QRS interval. 3. We are waiting for cardiology recommendation. Continue statin, losartan. We will add metoprolol 25 mg twice a day. MEDICAL NECESSITY: We will get echocardiogram, replace electrolyte. Hopefully will discharge home later today or civil structural engineer, tomorrow morning. DICTATING PHYSICIAN: FLOR GASPAR M.D. [id number] PHY#: [id number] ID: [id number] JOB#: [id number] ACCT: [id number] cc: >
[2019-01-31] MEDS: ATORVASTATIN CALCIUM 20 MG TABLET PO SCH (22:36)
[2019-02-01 06:26] LABS: ABSOLUTE EOSINOPHILS # (AUTO) 0.1 10^3/uL (0.0-0.6); ABSOLUTE LYMPHOCYTES (AUTO) 0.9 10^3/uL (0.5-4.7); ABSOLUTE MONOCYTES (AUTO) 0.5 10^3/uL (0.1-1.4); ABSOLUTE NEUT (AUTO) 3.7 10^3/uL (1.7-8.2); BASOPHILS % (AUTO) 0.8 % (0-2); EOSINOPHILS % (AUTO) 2.5 % (0-6); HEMATOCRIT 29.5 % (36.0-47.0); HEMOGLOBIN 10.3 g/dL (12.0-15.5); LYMPHOCYTES % (AUTO) 17.6 % (13-45); MEAN CORPUSCULAR HEMOGLOBIN 28.3 pg (27.0-33.4); MEAN CORPUSCULAR HGB CONC 34.8 g/dL (32.0-36.0); MEAN CORPUSCULAR VOLUME 81 fl (80-97); MONOCYTES % (AUTO) 9.8 % (3-13); PLATELET COUNT 189 10^3/uL (150-450); RED BLOOD COUNT 3.64 10^6/uL (3.72-5.28); RED CELL DISTRIBUTION WIDTH 15.3 % (11.5-14.0); SEGMENTED NEUTROPHILS % (AUTO) 69.3 % (42-78); TOTAL CELLS COUNTED % (AUTO) 100 %; WHITE BLOOD COUNT 5.4 10^3/uL (4.0-10.5)
[2019-02-01 06:44] LABS: ALBUMIN 3.4 g/dL (3.5-5.0); ANION GAP 9 (5-19); BLOOD UREA NITROGEN 15 mg/dL (7-20); CALCIUM 8.5 mg/dL (8.4-10.2); CARBON DIOXIDE 23 mmol/L (22-30); CHLORIDE 107 mmol/L (98-107); GLUCOSE 104 mg/dL (75-110); PHOSPHORUS 2.1 mg/dL (2.5-4.5); POTASSIUM 3.6 mmol/L (3.6-5.0); SODIUM 139.2 mmol/L (137-145)
[2019-02-01] MEDS: POTASSIUM CHLORIDE 10 MEQ CAPSULE.ER PO SCH (11:25)
[2019-02-01] MEDS: ARIPIPRAZOLE 2 MG TABLET PO SCH (11:25)
[2019-02-01] MEDS: LOSARTAN POTASSIUM 50 MG TABLET PO SCH (11:25)
[2019-02-01] MEDS: CETIRIZINE 10 MG TABLET PO SCH (11:26)
[2019-02-01] MEDS: ENOXAPARIN SODIUM INJ 30 MG/0.3 ML DISP.SYRIN SUBCUT SCH (11:26)
[2019-02-01] MEDS: FAMOTIDINE 20 MG TABLET PO SCH (11:26)
[2019-02-01] MEDS ORDERED: ACETAMINOPHEN 325 MG TABLET PO PRN (13:34)
[2019-02-01] MEDS ORDERED: REGADENOSON INJ 0.4 MG/5 ML DISP.SYRIN IV ONE (15:39)
[2019-02-01 17:52] VITALS: BP 136/84
--- NOTE | 2019-02-01 21:08 | XCELERA REPORT ---
[address] [address] Transthoracic Echocardiogram Report Name: ADE DUNAWAY Age: 88 yrs Gender: Female : 1930 Patient Status: Inpatient Patient Location: [address] [place], [place] [address] Study Date: 02/01/2019 02:07 PM Height: 65 in Weight: 177 lb BSA: 1.9 m2 Procedure: A two-dimensional transthoracic echocardiogram with color flow and Doppler was performed. The study was technically difficult with many images being suboptimal in quality. The study was technically limited with all images being suboptimal in quality. Reason For Study: Chest pain History: Chest pain. Ordering Physician: FLOR GASPAR Performed By: Phylicia Morgan Interpretation Summary The left ventricle is normal in size. There is normal left ventricular wall thickness. LV EF is 60% The left ventricular ejection fraction is within normal limits. Doppler measurements suggest impaired left ventricular relaxation, which is associated with grade I/IV or mild diastolic dysfunction The left ventricular wall motion is normal. The right ventricle is not well visualized secondary to technical limitations The right ventricle is grossly normal size. The right atrium is normal. The left atrial size is normal. There is no evidence of mitral valve prolapse. There is no vegetation seen on the mitral valve. There is no mitral valve stenosis. There is a trace to mild amount of mitral regurgitation There is no aortic valvular vegetation. There is no aortic valve stenosis There is no LVOT obstruction. There is a mild amount of aortic regurgitation There is no tricuspid stenosis. There is a mild amount of tricuspid regurgitation There is mild pulmonary hypertension by echo RVSP is 36 mm of Hg , with RA mean of 10. The pulmonic valve is not well visualized. There is no pericardial effusion. MMode/2D Measurements & Calculations RVDd: 3.3 cm LVIDd: 4.4 cm FS: 33.7 % Ao root diam: 3.2 cm IVSd: 1.0 cm LVIDs: 2.9 cm EDV(Teich): 87.4 ml Ao root area: 8.0 cm2 LVPWd: 1.00 cm ESV(Teich): 32.5 ml LA dimension: 3.8 cm EF(Teich): 62.8 % Doppler Measurements & Calculations MV E max bhavana: MV P1/2t max bhavana: Ao V2 max: AI max bhavana: 78.0 cm/sec 79.5 cm/sec 133.8 cm/sec 390.9 cm/sec MV A max bhavana: MV P1/2t: 44.4 msec Ao max PG: AI max P.1 mmHg 123.9 cm/sec MVA(P1/2t): 5.0 cm2 7.2 mmHg AI dec slope: MV E/A: 0.63 MV dec slope: 350.6 cm/sec2 AI P1/2t: 326.5 msec 524.0 cm/sec2 MV dec time: 0.15 sec LV V1 max PG: PA V2 max: TR max bhavana: AV P1/2t-pr_phl: 4.6 mmHg 72.1 cm/sec 253.4 cm/sec 326.5 msec LV V1 max: PA max P.1 mmHg TR max P.1 cm/sec 25.7 mmHg MV P1/2t-pr_phl: 44.4 msec Left Ventricle The left ventricle is normal in size. There is normal left ventricular wall thickness. LV EF is 60%. The left ventricular ejection fraction is within normal limits. Doppler measurements suggest impaired left ventricular relaxation, which is associated with grade I/IV or mild diastolic dysfunction. The left ventricular wall motion is normal. Right Ventricle The right ventricle is not well visualized secondary to technical limitations. The right ventricle is grossly normal size. Atria The right atrium is normal. The left atrial size is normal. Mitral Valve There is no evidence of mitral valve prolapse. There is no vegetation seen on the mitral valve. There is no mitral valve stenosis. There is a trace to mild amount of mitral regurgitation. Aortic Valve There is no aortic valvular vegetation. There is no aortic valve stenosis. There is no LVOT obstruction. There is a mild amount of aortic regurgitation. Tricuspid Valve There is no tricuspid stenosis. There is a mild amount of tricuspid regurgitation. There is mild pulmonary hypertension by echo. RVSP is 36 mm of Hg , with RA mean of 10. Pulmonic Valve The pulmonic valve is not well visualized. Effusions There is no pericardial effusion. : FLOR GASPAR > Chinyere Palomares
--- NOTE | 2019-02-01 23:51 | Progress Note ---
Provider Note Provider Note: CARDIOLOGY PROGRESS NOTE by Dr. Chinyere Palomares on 02/01/2019. SUBJECTIVE: The patient denies any chest pain or discomfort. There is no PND orthopnea. There is no shortness of breath. There is no arrhythmias seen on the monitor. The patient remains in sinus rhythm with narrow complex. Note when the patient was injected with Lexiscan for the stress test. The patient's initial heart rate which was 90 bpm and had a narrow complex QRS went into a heart rate related left bundle branch block pattern when the heart rate after IV Lexiscan went up to a little over 100 bpm. Hence this is carried rate related left bundle branch block pattern, with the patient having no chest symptoms or chest pain discomfort. There is no TIA CVA symptoms. PHYSICAL EXAMINATION: The patient mildly obese. In no acute distress. She is well-groomed. Selected Entries 02/01/19 02/01/19 02/01/19 15:38 17:37 17:49 Temperature 98.9 F Pulse Rate 84 Respiratory 16 Rate Blood Pressure 136/84 H [Right Upper Arm] O2 Sat by Pulse 95 Oximetry Fraction of 21 Inspired Oxygen (FIO2) Oxygen Delivery Room Air Method Pain Level 1 HEAD: Head is atraumatic normocephalic. Eyes: Pupils are equal round regular reactive light accommodation extraocular movements are normal there is no congenital pallor there is no scleral icterus. Ears: External auditory canals are clear, there are no lesions of the pinna. Nose: No deviated nasal septum and no inflammation of the nasal mucous membrane. Mouth: Mucous membranes of mouth are moist tongue is moist there is no ulcers there is no bleeding from the gums. Throat: There is no redness of the oropharynx there is no exudates. Skin: There is no petechia or ecchymosis there is no skin lesions or skin rashes. Neck: Neck is supple there is no JVD carotids equal there is no bruit there is no lymphadenopathy there is no neck stiffness. There is no goiter trachea central lungs: Lungs are clear to auscultation percussion there is no accessory muscles of respiration in use. There is no rhonchi rales or wheezing. There is no chest wall tenderness. HEART: S1-S2 is heard there is no S3 gallop there is no S4 gallop S1 is of normal intensity. There is no rub. The systolic murmur in the left sternal border and apex without radiation. Abdomen: Abdomen is soft nontender there is no paraspinal megaly bowel sounds well heard there is no tender areas of masses. There is no rebound guarding or rigidity. Extremi ties: Femorals are well felt there is no femoral bruits neck pulses are well felt there is no pedal edema there is no DVT or cellulitis there is no cyanosis or clubbing there is no DVT or cellulitis. There is no calf tenderness. SIDING INSTALLER: The patient is awake alert oriented 3 with no focal deficits. Psychiatric: The patient judgment and insight are intact and her affect is normal. 01/31/19 02/01/19 02/01/19 08:15 05:40 05:40 WBC 5.4 RBC 3.64 L Hgb 10.3 L Hct 29.5 L MCV 81 MCH 28.3 MCHC 34.8 RDW 15.3 H Plt Count 189 Seg Neutrophils % 69.3 Lymphocytes % 17.6 Sodium 139.2 Potassium 3.6 Chloride 107 Carbon Dioxide 23 Anion Gap 9 BUN 15 Creatinine 1.03 Est GFR (Non-Af Amer) 51 L Calcium 8.5 Phosphorus 2.1 L Magnesium 1.8 Troponin I 0.014 Albumin 3.4 L The patient's echocardiogram shows normal left ventricular chamber size, there is no LVH, the left ventricle ejection fraction is normal at 60%. There is no regional wall motion abnormality. There is mild LV diastolic dysfunction. There is no aortic stenosis. There is mild aortic regurgitation. There is trace to mild mitral regurgitation, with no mitral stenosis or mitral prolapse. There is mild tricuspid regurgitation with mild pulmonary hypertension with right ventricular systolic pressure of 36 mmHg. There is no pericardial effusion. The patient's IV Cardiolite stress test showed no Lexiscan induced reversible ischemia and no evidence of OR/scar. Echo, lab, rate related bundle branch block pattern, and stress test results were discussed with the patient and patient's daughter. Impression/RECOMMENDATION: 1. Rate Related Left Bundle Branch Block Pattern. No Evidence of Ischemia or Acute Coronary Syndrome. 2. Hypertension: Blood pressure well controlled. Continue current antihypertensives. 3. Hypothyroidism: Continue the patient on current thyroid replacement. 4. Mild chronic kidney disease: Avoid nephrotoxic drugs. Cardiac status stable Medications reviewed. The results of the echo and the stress test were discussed with attending physician on the case. Management plan discussed with attending physician. Medical decision making is of moderate complexity. Note 40 minutes spent on this patient more than 50% of time spent in direct patient care. Note that the patient is a full code. Her daughter is her surrogate healthcare decision maker. Sign off
--- NOTE | 2019-02-02 00:19 | EKG REPORT ---
SEVERITY:- ABNORMAL ECG - SINUS RHYTHM LEFT BUNDLE BRANCH BLOCK : Confirmed by: Heather Lucero 02-Feb-2019 00:18:09
--- NOTE | 2019-02-02 00:34 | DRAGON STRESS TEST REPORT ---
Intravenous Lexiscan Cardiolite stress test using single photon emmision computerized tomography. Date of procedure: 02/01/2019. Ordering Provider: Dr. Barfield. Patient's status: Pain Patient Indication: Chest pain, and intermittent left bundle branch block pattern.. Coronary risk factors: Age, hypertension, dyslipidemia, and family history of coronary artery disease. Resting EKG: Sinus Rhythm Within Normal Limits Stress EKG: After the injection of IV Lexiscan the patient's heart rate went up to up slightly about 100 bpm, and the patient went into rate related left bundle branch block pattern. Hence stress EKG is nondiagnostic for ischemia. The patient had no chest pain or discomfort, and there were no arrhythmias seen. Reason for termination: Protocol. Conclusions: Normal hemodynamic response to IV Lexiscan. Note there was rate related left bundle branch block pattern with injection of IV Lexiscan. Nuclear data: At rest the patient was given 10.53 millicuries of technetium 99m sestamibi injected intravenously. As per protocol rest non gated SPECT images were obtained. Subsequently the patient was given intravenous Lexiscan at a dose of 0.4 mg in 5 mL intravenously, followed by flush with normal saline. Subsequently the stress dose of 32.9 millicuries of technetium 99m sestamibi was injected intravenously. As per protocol stress gated images were obtained. Nuclear interpretation: Review of images showed that all segments of the myocardium had normal perfusion at rest, and normal perfusion post stress with IV Lexiscan. All segments of the myocardium had normal motion, contraction, and thickening by gated study. T. I D. ratio was normal at 1.10. There is no transient ischemic dilatation of the left ventricle. Computer read rest, and stress left ventricular ejection fraction were 70 %, and %, respectively. Conclusion: 1. There is no scintigraphic evidence of Lexiscan induced myocardial ischemia. 2. There is no scintigraphic evidence of myocardial infarction/scar. 3. Rate related left bundle branch block pattern. Recommendations: Aggressive risk factor modification, and treating the underlying co- morbidities. MTDD
[2019-02-02] MEDS ORDERED: PANTOPRAZOLE SODIUM 40 MG TABLET.DR PO SCH (06:00)
--- NOTE | 2019-02-03 10:27 | PDOC DISCHARGE SUMMARY ---
General - Admit/Disc Date/PCP Admission Date/Primary Care Provider: 01/30/19 16:45 ALAYNA LARRY MD Discharge Date: 02/03/19 - Discharge Diagnosis (1) Atypical chest pain Is this a current diagnosis for this admission?: Yes (2) HTN (hypertension) Is this a current diagnosis for this admission?: Yes (3) LBBB (left bundle branch block) Is this a current diagnosis for this admission?: Yes - Additional Information Resuscitation Status: Full Code Discharge Diet: As Tolerated Discharge Activity: Activity As Tolerated Prescriptions: Atorvastatin Calcium [Lipitor 20 mg Tablet] 20 mg PO QHS #30 tablet Carvedilol [Coreg 3.125 mg Tablet] 3.125 mg PO Q12 #60 tablet Lidocaine [Lidoderm 5% (700 mg) Transdermal Patch] 1 patch TP DAILY #10 adh..patch Pantoprazole Sodium [Protonix [address] Tablet] 40 mg PO QAM #30 tablet.dr Home Medications: Cetirizine HCl [Zyrtec 10 mg Chewable Tab] 10 mg PO QHS 01/10/13 Levothyroxine Sodium [Synthroid] 50 mcg PO Q6AM 01/10/13 Ranitidine HCl 150 mg PO BID 07/08/17 Aripiprazole 1 ml PO DAILY 01/30/19 Duloxetine HCl 1 cap PO DAILY 01/30/19 Lamotrigine 4 tab PO BID 01/30/19 Losartan/Hydrochlorothiazide [Losartan-Hctz 50-12.5 mg Tab] 1 tab PO DAILY 01/30/19 Atorvastatin Calcium [Lipitor 20 mg Tablet] 20 mg PO QHS #30 tablet 02/01/19 Carvedilol [Coreg 3.125 mg Tablet] 3.125 mg PO Q12 #60 tablet 02/01/19 Lidocaine [Lidoderm 5% (700 mg) Transdermal Patch] 1 patch TP DAILY #10 adh..patch 02/01/19 Pantoprazole Sodium [Protonix [address] Tablet] 40 mg PO QAM #30 tablet.dr 02/01/19 History of Present Illness History of Present Illness: ADE DUNAWAY is a 88 year old female with a PMH of hypothyroidism, prior CVA, GERD and hypertension who presented with midsternal chest pain. She was admitted to rule out ACS. Hospital Course Hospital Course: Ms. ADE DUNAWAY is a 88 year old female with a PMH of hypothyroidism, prior CVA, GERD and hypertension who was admitted to rule out ACS. Her EKG showed LBBB pattern. All her troponins were negative. A stress testing and cardiology consult was pursued. Her stress testing was unremarkable. Discussed results with cardio. Her echo was also unremarkable aside from a G1DD. She has been chest pain free since admission. Denies SOB and is comfortable and saturating well on room air. Patient did describe her midsternal chest pain as more of a feeling of "indigestion". She tskes ranitidine at home. She was prescribed a PPI trial on discharge. She does have allergy to aspirin. Coreg was added to improve blood pressures. Physical Exam Vital Signs: Temp Pulse Resp BP Pulse Ox 98.9 F 84 16 136/84 H 95 02/01/19 17:49 02/01/19 17:49 02/01/19 17:49 02/01/19 17:49 02/01/19 17:49 General appearance: PRESENT: no acute distress, well-developed, well-nourished Head exam: PRESENT: atraumatic, normocephalic Eye exam: PRESENT: conjunctiva pink, EOMI, PERRLA. ABSENT: scleral icterus Ear exam: PRESENT: normal external ear exam Neck exam: ABSENT: carotid bruit, JVD, lymphadenopathy, thyromegaly Respiratory exam: PRESENT: clear to auscultation jim. ABSENT: rales, rhonchi, wheezes Cardiovascular exam: PRESENT: RRR. ABSENT: diastolic murmur, rubs, systolic murmur Pulses: PRESENT: normal dorsalis pedis pul GI/Abdominal exam: PRESENT: normal bowel sounds, soft. ABSENT: distended, guarding, mass, organolmegaly, rebound, tenderness Rectal exam: PRESENT: deferred Extremities exam: PRESENT: full ROM. ABSENT: calf tenderness, clubbing, pedal edema Neurological exam: PRESENT: alert, awake, oriented to person, oriented to place, oriented to time, oriented to situation, CN II-XII grossly intact. ABSENT: motor sensory deficit Results Laboratory Results: 02/01/19 05:40 02/01/19 05:40 01/30/19 01/30/19 01/30/19 14:00 20:16 20:16 Creatine Kinase 57 CK-MB (CK-2) 0.77 Troponin I < 0.012 < 0.012 NT-Pro-B Natriuret Pep 288 01/31/19 01/31/19 01/31/19 02:01 02:01 08:15 Creatine Kinase 56 72 CK-MB (CK-2) 0.76 Troponin I < 0.012 NT-Pro-B Natriuret Pep 01/31/19 08:15 Creatine Kinase CK-MB (CK-2) 1.24 Troponin I 0.014 NT-Pro-B Natriuret Pep Impressions: Chest X-Ray 01/30/19 13:53 IMPRESSION: In the appropriate clinical setting, patchy opacity localizing to the right lower lobe may represent a developing airspace process. Hip/Pelvis X-Ray 01/30/19 14:13 IMPRESSION: No fracture or dislocation of the right hip. Moderate osteoarthritis. Please note that plain radiographs may be insensitive for hip or pelvic fracture in the setting of osteopenia; consider MRI to more sensitively evaluate for marrow edema if fracture is suspected. Qualifiers - * PATIENT BEING DISCHARGED WITH ANY OF THE FOLLOWING DIAGNOSIS: No
== END 2019-02-01 18:25 | disposition home or self-care (01) ==
LOC: ER 13:29 → EH 16:45 → 4S 18:13
PROVIDERS: ADMIT Internal Medicine; ATTEND Internal Medicine
DX: R07.89 Other chest pain (principal); I12.9 Hypertensive chronic kidney disease with stage 1 through stage 4 chronic kidney disease, or unspecified chronic kidney disease; N18.3 Chronic kidney disease, stage 3 (moderate); N17.9 Acute kidney failure, unspecified; I44.7 Left bundle-branch block, unspecified; M25.551 Pain in right hip; K21.9 Gastro-esophageal reflux disease without esophagitis; E03.9 Hypothyroidism, unspecified; I69.354 Hemiplegia and hemiparesis following cerebral infarction affecting left non-dominant side; M19.90 Unspecified osteoarthritis, unspecified site; E78.5 Hyperlipidemia, unspecified; R53.1 Weakness; E87.6 Hypokalemia; E86.0 Dehydration; I44.0 Atrioventricular block, first degree; R53.83 Other fatigue; G40.909 Epilepsy, unspecified, not intractable, without status epilepticus; M54.5 Low back pain; E66.9 Obesity, unspecified; R74.8 Abnormal levels of other serum enzymes; M79.89 Other specified soft tissue disorders; Z79.899 Other long term (current) drug therapy; Z88.6 Allergy status to analgesic agent; Z95.828 Presence of other vascular implants and grafts; Z86.79 Personal history of other diseases of the circulatory system; Z82.49 Family history of ischemic heart disease and other diseases of the circulatory system
CPT/HCPCS: 93005 ×3; 99285; 96360; 96361; 80069; 36415 ×3; 82553 ×2; 82550 ×2; 83690; 83735 ×2; 85025 ×3; 80053 ×2; 84484 ×2; 83880; 93306; 93017; 71046; 73502; 78452; 93010 ×3; A9500; J2785; A9270 ×13; J3490 ×2; J1650 ×2; J7030; G0378

== ENCOUNTER 2019-03-18 11:46 | Emergency (ER) | payer MEDICARE, OTHER ==
--- NOTE | 2019-03-18 13:04 | ER Document Report ---
ED Medical Screen (RME) - General Chief Complaint: Fall Injury Stated Complaint: FALL/HAND-HIP PAIN Time Seen by Provider: 03/18/19 13:01 Primary Care Provider: ALAYNA LARRY MD [Primary Care Provider] - Follow up as needed Mode of Arrival: Wheelchair Information source: Patient, Relative Notes: Patient presents after a fall at home today. Patient states she was attempting to answer the door and tripped after stubbing her toe. Patient states that she hit her chest and developed chest pain after the fall. Patient complains of left shoulder, bilateral hip and left hand pain. Patient with laceration to the left hand. Family states that she suspects patient's tetanus immunization is currently up-to-date. I have greeted and performed a rapid initial assessment of this patient. A comprehensive ED assessment and evaluation of the patient, analysis of test results and completion of the medical decision making process will be conducted by additional ED providers. TRAVEL OUTSIDE OF THE [place] IN LAST 30 DAYS: No - Related Data Allergies/Adverse Reactions: aspirin [Aspirin] Allergy (Severe, Verified 03/18/19 11:52) Swelling of Throat morphine [Morphine] Allergy (Intermediate, Verified 03/18/19 11:52) Penicillins Allergy (Intermediate, Verified 03/18/19 11:52) fentanyl [Fentanyl] Allergy (Verified 03/18/19 11:52) tachycardia, apnea, "feels like room is closing in" hydromorphone HCl [From Dilaudid] Allergy (Verified 03/18/19 11:52) "feels like throat is closing" Iodinated Contrast- Oral and IV Dye [IV Dye, Iodine Containing] Allergy (Verified 03/18/19 11:52) Sulfa (Sulfonamide Antibiotics) Allergy (Verified 03/18/19 11:52) hydromorphone [From Dilaudid] Adverse Reaction (Verified 03/18/19 11:52) Past Medical History - Past Medical History Cardiac Medical History: Reports: Hx Hypercholesterolemia, Hx Hypertension Denies: Hx Coronary Artery Disease, Hx Heart Attack Pulmonary Medical History: Denies: Hx Asthma, Hx Bronchitis, Hx COPD, Hx Pneumonia Neurological Medical History: Reports: Hx Cerebrovascular Accident - 2010, Hx Seizures Renal/ Medical History: Denies: Hx Peritoneal Dialysis GI Medical History: Reports: Hx Gastroesophageal Reflux Disease Musculoskeltal Medical History: Reports Hx Arthritis Psychiatric Medical History: Reports: Hx Depression Past Surgical History: Reports: Hx Hysterectomy, Hx Neurologic Surgery - Brain aneurysm clip, Hx Orthopedic Surgery - Lt hip fx repair, Hx Thyroid Surgery - partial, Other - Bilobed Right MCA aneurysm clipping in 2009. Denies: Hx Pacemaker - Immunizations Hx Diphtheria, Pertussis, Tetanus Vaccination: No Physical Exam - Vital signs Vitals: Temp Pulse Resp BP Pulse Ox 98.1 F 70 18 149/81 H 94 03/18/19 11:56 03/18/19 11:56 03/18/19 11:56 03/18/19 11:56 03/18/19 11:56 - Extremities General upper extremity: Tender - Tenderness to left hand with large laceration, no active bleeding Course - Vital Signs Vital signs: Temp Pulse Resp BP Pulse Ox 98.1 F 70 18 149/81 H 94 03/18/19 11:56 03/18/19 11:56 03/18/19 11:56 03/18/19 11:56 03/18/19 11:56 Doctor's Discharge - Discharge Referrals: ALAYNA LARRY MD [Primary Care Provider] - Follow up as needed
[2019-03-18 13:41] LABS: ABSOLUTE BASOPHILS # (AUTO) 0.1 10^3/uL (0.0-0.2); ABSOLUTE EOSINOPHILS # (AUTO) 0.2 10^3/uL (0.0-0.6); ABSOLUTE LYMPHOCYTES (AUTO) 2.2 10^3/uL (0.5-4.7); ABSOLUTE MONOCYTES (AUTO) 0.5 10^3/uL (0.1-1.4); ABSOLUTE NEUT (AUTO) 4.5 10^3/uL (1.7-8.2); BASOPHILS % (AUTO) 0.9 % (0-2); EOSINOPHILS % (AUTO) 2.9 % (0-6); HEMATOCRIT 35.6 % (36.0-47.0); HEMOGLOBIN 11.9 g/dL (12.0-15.5); LYMPHOCYTES % (AUTO) 29.5 % (13-45); MEAN CORPUSCULAR HGB CONC 33.5 g/dL (32.0-36.0); MEAN CORPUSCULAR VOLUME 80 fl (80-97); MONOCYTES % (AUTO) 6.8 % (3-13); PLATELET COUNT 309 10^3/uL (150-450); RED BLOOD COUNT 4.42 10^6/uL (3.72-5.28); RED CELL DISTRIBUTION WIDTH 15.4 % (11.5-14.0); SEGMENTED NEUTROPHILS % (AUTO) 59.9 % (42-78); TOTAL CELLS COUNTED % (AUTO) 100 %; WHITE BLOOD COUNT 7.5 10^3/uL (4.0-10.5)
--- NOTE | 2019-03-18 13:43 | RADIOLOGY REPORT (SQ) ---
EXAM DESCRIPTION: CT HEAD WITHOUT COMPLETED DATE/TIME: 03/18/2019 1:31 pm REASON FOR STUDY: fall, head injury COMPARISON: 07/26/2018 TECHNIQUE: Axial images acquired through the brain without intravenous contrast. Images reviewed wi th bone, brain and subdural windows. Additional sagittal and coronal reconstructions were generated. Images stored on PACS. All CT scanners at this facility use dose modulation, iterative reconstruction, and/or weight based d osing when appropriate to reduce radiation dose to as low as reasonably achievable (ALARA). [facility]: Dose Right [facility]: CareDose [facility]: Dose Right [facility]: Teradose 4D [facility]: Swing by Swing RADIATION DOSE: 990 mGy cm LIMITATIONS: None. FINDINGS: VENTRICLES: Normal size and contour. CEREBRUM: No masses. No hemorrhage. No midline shift. No evidence for acute infarction. Unchanged right frontal and temporal encephalomalacia with aneurysm clip in the vicinity of the right temporal pole. CEREBELLUM: No masses. No hemorrhage. No alteration of density. No evidence for acute infarction. EXTRAAXIAL SPACES: No fluid collections. No masses. ORBITS AND GLOBE: No intra- or extraconal masses. Normal contour of globe without masses. CALVARIUM: No fracture. Status post right pterional craniotomy. PARANASAL SINUSES: No fluid or mucosal thickening. SOFT TISSUES: No mass or hematoma. OTHER: No other significant finding. IMPRESSION: 1. No acute intracranial pathology. 2. Unchanged right frontal and temporal encephalomalacia with aneurysm clip in the vicinity of the r ight temporal pole. Status post right pterional craniotomy. EVIDENCE OF ACUTE STROKE: NO. COMMENT: Quality ID # [id number]: Final reports with documentation of one or more dose reduction techniques (e.g., Automated exposure control, adjustment of the mA and/or kV according to patient size, use of iterative reconstruction technique) TECHNICAL DOCUMENTATION: JOB ID: [id number] [employer]- All Rights Reserved Reading location - IP/workstation name: [email or web address]
[2019-03-18 13:57] LABS: ALANINE AMINOTRANSFERASE 22 U/L (9-52); ALBUMIN 4.3 g/dL (3.5-5.0); ALKALINE PHOSPHATASE 73 U/L (38-126); ANION GAP 12 (5-19); ASPARTATE AMINO TRANSFERASE 20 U/L (14-36); BILIRUBIN,DIRECT 0.4 mg/dL (0.0-0.4); BILIRUBIN,TOTAL 0.7 mg/dL (0.2-1.3); BLOOD UREA NITROGEN 21 mg/dL (7-20); CALCIUM 9.8 mg/dL (8.4-10.2); CARBON DIOXIDE 30 mmol/L (22-30); CHLORIDE 99 mmol/L (98-107); GLUCOSE 98 mg/dL (75-110); POTASSIUM 3.6 mmol/L (3.6-5.0); SODIUM 140.6 mmol/L (137-145); TOTAL PROTEIN 7.3 g/dL (6.3-8.2)
--- NOTE | 2019-03-18 14:40 | RADIOLOGY REPORT (SQ) ---
EXAM DESCRIPTION: HAND LEFT 3 VIEWS COMPLETED DATE/TIME: 03/18/2019 2:18 pm REASON FOR STUDY: fall COMPARISON: 01/10/2013 EXAM PARAMETERS: NUMBER OF VIEWS: Three views. TECHNIQUE: AP, lateral and oblique radiographic images acquired of the left hand. LIMITATIONS: Position assistance on the lateral radiograph obscures the 2nd through 4th middle and di stal phalanges. FINDINGS: MINERALIZATION: Osteopenia. BONES: There is subtle buckling of the distal radial metaphysis with a nondisplaced ulnar styloid fra cture. Progression in diffuse osteoarthritic degenerative changes. No worrisome bone lesions. JOINTS: No effusions. SOFT TISSUES: No soft tissue swelling. No foreign body. OTHER: No other significant finding. IMPRESSION: Minimally displaced transverse fracture of the distal radial metaphysis with ulnar stylo id avulsion injury. Background of osteopenia and diffuse degenerative changes. TECHNICAL DOCUMENTATION: JOB ID: [id number] [employer]- All Rights Reserved Reading location - IP/workstation name: [email or web address]
--- NOTE | 2019-03-18 14:42 | RADIOLOGY REPORT (SQ) ---
EXAM DESCRIPTION: HIP BILATERAL COMPLETED DATE/TIME: 03/18/2019 2:18 pm REASON FOR STUDY: fall COMPARISON: None. NUMBER OF VIEWS: Two views. TECHNIQUE: AP pelvis and additional frog-leg view of the right and left hip. LIMITATIONS: None. FINDINGS: MINERALIZATION: Osteopenia. PRIMARY HIP: No fracture or dislocation. No worrisome bone lesions. OPPOSITE HIP: Status post open reduction, internal fixation of a left femoral neck fracture. There i s no evidence of hardware fracture, perihardware lucency or migration. PUBIS AND ISCHIUM: No fracture. PELVIS: No fracture. SACRUM: No fracture or dislocation. No worrisome bone lesions. LOWER LUMBAR SPINE: Multilevel spondylotic changes are demonstrated. No acute findings. SOFT TISSUES: No findings. OTHER: No other significant finding. IMPRESSION: No evidence of acute osseous injury. Status post ORIF of the left femoral neck without evidence of hardware complication. TECHNICAL DOCUMENTATION: JOB ID: [id number] [employer]- All Rights Reserved Reading location - IP/workstation name: [email or web address]
--- NOTE | 2019-03-18 14:43 | RADIOLOGY REPORT (SQ) ---
EXAM DESCRIPTION: SHOULDER LEFT 2 OR MORE VIEWS COMPLETED DATE/TIME: 03/18/2019 2:18 pm REASON FOR STUDY: fall COMPARISON: 05/28/2018 NUMBER OF VIEWS: Three views. TECHNIQUE: Internal rotation, external rotation, and Y view images acquired of the left shoulder. LIMITATIONS: None. FINDINGS: MINERALIZATION: Osteopenia. BONES: No acute fracture or dislocation. No worrisome bone lesions. JOINTS: No dislocation. VISUALIZED LUNGS AND RIBS: No pneumothorax. No rib fracture. SOFT TISSUES: No radiopaque foreign body. OTHER: No other significant finding. IMPRESSION: No evidence of acute osseous injury. Background of osteopenia. TECHNICAL DOCUMENTATION: JOB ID: [id number] [employer]- All Rights Reserved Reading location - IP/workstation name: [email or web address]
--- NOTE | 2019-03-18 14:45 | RADIOLOGY REPORT (SQ) ---
EXAM DESCRIPTION: CHEST 2 VIEWS COMPLETED DATE/TIME: 03/18/2019 2:18 pm REASON FOR STUDY: fall COMPARISON: None. EXAM PARAMETERS: NUMBER OF VIEWS: two views TECHNIQUE: Digital Frontal and Lateral radiographic views of the chest acquired. RADIATION DOSE: NA LIMITATIONS: none FINDINGS: LUNGS AND PLEURA: No opacities, masses or pneumothorax. No pleural effusion. MEDIASTINUM AND HILAR STRUCTURES: No masses or contour abnormalities. HEART AND VASCULAR STRUCTURES: Heart normal size. No evidence for failure. BONES: No acute findings. HARDWARE: None in the chest. OTHER: No other significant finding. IMPRESSION: No evidence of acute osseous or visceral injury. TECHNICAL DOCUMENTATION: JOB ID: [id number] [employer]- All Rights Reserved Reading location - IP/workstation name: [email or web address]
[2019-03-18 18:32] LABS: APPEARANCE,URINE CLEAR; BILIRUBIN,URINE NEGATIVE (NEGATIVE); COLOR,URINE YELLOW; GLUCOSE, URINE NEGATIVE (NEGATIVE); KETONES,URINE TRACE mg/dL (NEGATIVE); LEUKOCYTE ESTERASE,URINE TRACE (NEGATIVE); NITRITE,URINE NEGATIVE (NEGATIVE); PROTEIN,URINE 30 mg/dL (NEGATIVE); URINE SPECIFIC GRAVITY 1.017; UROBILINOGEN,URINE NEGATIVE mg/dL (<2.0)
--- NOTE | 2019-03-18 20:36 | ER Document Report ---
ED Fall - General Chief Complaint: Fall Injury Stated Complaint: FALL/HAND-HIP PAIN Time Seen by Provider: 03/18/19 13:01 Primary Care Provider: ALAYNA LARRY MD [Primary Care Provider] - Follow up as needed Mode of Arrival: Wheelchair Information source: Patient, Relative Notes: Patient is a 88 Year old female who comes to the ER with complaint of a mechanical fall sustained at home Prior to arrival. She states she was using her cane and walking to the front door to answer it when she tripped over her cane and landed on outstretched left hand to stop her fall. She complains of pain in the left wrist and has a skin tear on the hand. She denies any other injury at this time. History of falls recently. Thinks its associated with past CVA. Denies hitting head and no LOC. Patient does complain of left hip pain and left shoulder pain. But is ambulatory and bearing weight. Her shoulder also moves freely. TRAVEL OUTSIDE OF THE [place] IN LAST 30 DAYS: No - HPI Occurred: Just prior to arrival Where: Home, Indoors Context: Tripped Associated symptoms: None Location of injury/pain: Hand, Wrist Quality of pain: Achy, Throbbing Severity: Moderate Pain Level: 3 - Related data Allergies/Adverse Reactions: aspirin [Aspirin] Allergy (Severe, Verified 04/03/19 18:32) Swelling of Throat morphine [Morphine] Allergy (Intermediate, Verified 04/03/19 18:32) Penicillins Allergy (Intermediate, Verified 04/03/19 18:32) fentanyl [Fentanyl] Allergy (Verified 04/03/19 18:32) tachycardia, apnea, "feels like room is closing in" hydromorphone HCl [From Dilaudid] Allergy (Verified 04/03/19 18:32) "feels like throat is closing" Iodinated Contrast- Oral and IV Dye [IV Dye, Iodine Containing] Allergy (Verified 04/03/19 18:32) Sulfa (Sulfonamide Antibiotics) Allergy (Verified 04/03/19 18:32) hydromorphone [From Dilaudid] Adverse Reaction (Verified 04/03/19 18:32) Past Medical History - General Information source: Patient, Relative - Social History Smoking Status: Never Smoker Chew tobacco use (# tins/day): No Frequency of alcohol use: None Drug Abuse: None Family History: Reviewed & Not Pertinent Patient has suicidal ideation: No Patient has homicidal ideation: No - Past Medical History Cardiac Medical History: Reports: Hx Hypercholesterolemia, Hx Hypertension Denies: Hx Coronary Artery Disease, Hx Heart Attack Pulmonary Medical History: Denies: Hx Asthma, Hx Bronchitis, Hx COPD, Hx Pneumonia Neurological Medical History: Reports: Hx Cerebrovascular Accident - 2010, Hx Seizures Renal/ Medical History: Denies: Hx Peritoneal Dialysis GI Medical History: Reports: Hx Gastroesophageal Reflux Disease Musculoskeletal Medical History: Reports Hx Arthritis Psychiatric Medical History: Reports: Hx Depression Past Surgical History: Reports: Hx Hysterectomy, Hx Neurologic Surgery - Brain aneurysm clip, Hx Orthopedic Surgery - Lt hip fx repair, Hx Thyroid Surgery - partial, Other - Bilobed Right MCA aneurysm clipping in 2009. Denies: Hx Pacemaker - Immunizations Hx Diphtheria, Pertussis, Tetanus Vaccination: No Hx Pneumococcal Vaccination: 11/22/11 Review of Systems - Review of Systems Constitutional: No symptoms reported EENT: No symptoms reported Cardiovascular: No symptoms reported Respiratory: No symptoms reported Gastrointestinal: No symptoms reported Genitourinary: No symptoms reported Female Genitourinary: No symptoms reported Musculoskeletal: See HPI, Joint pain Skin: See HPI, Other - Skin tear Hematologic/Lymphatic: No symptoms reported Neurological/Psychological: No symptoms reported -: Yes All other systems reviewed and negative Physical Exam - Vital signs Vitals: Temp Pulse Resp BP Pulse Ox 98.1 F 70 18 149/81 H 94 03/18/19 11:56 03/18/19 11:56 03/18/19 11:56 03/18/19 11:56 03/18/19 11:56 Interpretation: Hypertensive - General General appearance: Appears well, Alert - HEENT Head: Normocephalic, Atraumatic Eyes: Normal Conjunctiva: Normal Pupils: PERRL Pharynx: Normal Neck: Normal - Respiratory Respiratory status: No respiratory distress Chest status: Nontender Breath sounds: Normal. No: Rales, Rhonchi, Wheezing Chest palpation: Normal - Cardiovascular Rhythm: Regular Heart sounds: Normal auscultation Murmur: No - Abdominal Inspection: Normal Distension: No distension Bowel sounds: Normal Tenderness: Nontender Organomegaly: No organomegaly - Extremities General upper extremity: Tender, Edema, Normal temperature. No: Normal ROM, Normal strength General lower extremity: Tender, Normal ROM, Normal strength, Normal temper ature, Normal weight bearing Shoulder: Tender, Limited ROM, Other - Partient has mild ltenderness to the anterior portion of the left shoulder to palpation. Can actively move shoulder in all planes with only mild discomfort.Vasculr exam of the left upper extremity is normal. Wrist: Deformity, Ecchymosis, Limited ROM. No: Tender Hand: Tender, Other - Skin tear Hip: Tender, Pain with ROM, Other - Straight leg raises negative. Hs good Range of motion passively at both hips.. No: Ecchymosis, Instability, Laceration, Unable to bear weight - Neurological Neuro grossly intact: Yes Cognition: Normal Orientation: AAOx4 [place] Coma Scale Eye Opening: Spontaneous [place] Coma Scale Verbal: Oriented [place] Coma Scale Motor: Obeys Commands [place] Coma Scale Total: 15 - Psychological Associated symptoms: Normal affect, Normal mood - Skin Skin Temperature: Warm Skin Moisture: Dry Skin Color: Other - Patient displays a small skin tear on the left hand. approx 2 cm. Just short of vascular bed. no depth noted. Skind rolled back. Course - Re-evaluation Re-evalutation: 04/04/19 12:29 Patient found to have a left wrist styloid fracture and distal radial fracture minimally displaced. No Fracture of the hips. But was given crutches for balance. Will use walker at home. Her orthopedic MD is Dr Marsh and she and daughter will contact him 04/04/19 12:30 - Vital Signs Vital signs: Temp Pulse Resp BP Pulse Ox 97.8 F 77 16 139/69 H 94 03/18/19 20:57 03/18/19 20:57 03/18/19 20:57 03/18/19 20:57 03/18/19 20:57 - Laboratory Result Diagrams: 03/18/19 13:25 03/18/19 13:25 Laboratory results interpreted by me: 03/18/19 03/18/19 03/18/19 13:25 13:25 18:07 Hgb 11.9 L Hct 35.6 L RDW 15.4 H BUN 21 H Creatinine 1.36 H Est GFR ( Amer) 45 L Est GFR (Non-Af Amer) 37 L Urine Protein 30 H Urine Ketones TRACE H Ur Leukocyte Esterase TRACE H Procedures - Immobilization Left Wrist Pre-Proc Neuro Vasc Exam: Normal Immobilizer type: Short Arm Posterior Performed by: PCT Post-Proc Neuro Vasc Exam: Normal Alignment checked and good: Yes Notes: 04/04/19 12:33 After cleaning left hand skin tear we rolled back skin and used steristrips to give strenght and closure to the skin tear. Discharge - Discharge Clinical Impression: Fall Qualifiers: Encounter type: initial encounter Qualified Code(s): W19.XXXA - Unspecified fall, initial encounter Wrist fracture, closed Qualifiers: Encounter type: initial encounter Laterality: left Qualified Code(s): S62.102A - Fracture of unspecified carpal bone, left wrist, initial encounter for closed fracture Skin tear of left hand without complication Qualifiers: Encounter type: initial encounter Qualified Code(s): S61.412A - Laceration without foreign body of left hand, initial encounter Condition: Stable Disposition: HOME, SELF-CARE Instructions: Contusion ([facility]), Skin Tear ([facility]) Additional Instructions: You do have a wrist fracture that is very "minor". Any fracture is important that this is 1 of the better ones to have. You need to follow-up with your orth opedist when you tell me is Dr. Bermeo so I would call his office tomorrow to set up an appointment. You have probable contusions of your chest from the fall as well as your extremities ice down anything it hurts for at least 15 to 20 minutes at a time 3 times a day. He may continue to take ibuprofen and Tylenol for pain and discomfort take the antibiotics as directed. The glue and the Steri-Strips will fall off on her own please do not pick at them. Should you be concerned that it is not appearing to heal right come back to ER for a recheck. Prescriptions: Doxycycline Hyclate 100 mg PO BID #14 capsule Hydrocodone/Acetaminophen [[place] 5-325 mg Tablet] 1 tab PO Q6 PRN #15 tablet PRN Reason: Forms: Elevated Blood Pressure Referrals: ALAYNA LARRY MD [Primary Care Provider] - Follow up as needed
[2019-03-18 20:59] VITALS: BP 139/69
--- NOTE | 2019-03-18 23:24 | EKG REPORT ---
SEVERITY:- ABNORMAL ECG - SINUS RHYTHM PROBABLE LEFT VENTRICULAR HYPERTROPHY : Confirmed by: Heather Lucero 18-Mar-2019 23:22:51
== END 2019-03-18 21:05 | disposition home or self-care (01) ==
LOC: ER 11:46
DX: S52.592A Other fractures of lower end of left radius, initial encounter for closed fracture (principal); S52.615A Nondisplaced fracture of left ulna styloid process, initial encounter for closed fracture; S61.412A Laceration without foreign body of left hand, initial encounter; M25.552 Pain in left hip; M25.512 Pain in left shoulder; W01.0XXA Fall on same level from slipping, tripping and stumbling without subsequent striking against object, initial encounter; Y93.89 Activity, other specified; Y92.009 Unspecified place in unspecified non-institutional (private) residence as the place of occurrence of the external cause; I10 Essential (primary) hypertension; Z88.6 Allergy status to analgesic agent; Z88.5 Allergy status to narcotic agent; Z88.0 Allergy status to penicillin; Z91.041 Radiographic dye allergy status; Z88.2 Allergy status to sulfonamides
CPT/HCPCS: 93005; 99284; 36415; 85025; 80053; 81001; 84484; 71046; 73130; 73522; 73030; 70450; 93010; L3908

== ENCOUNTER 2019-04-03 18:27 | Emergency (ER) | payer MEDICARE, OTHER ==
--- NOTE | 2019-04-03 18:57 | ER Document Report ---
ED Medical Screen (RME) - General Chief Complaint: Fall Stated Complaint: FALL/LEFT LEG PAIN Time Seen by Provider: 04/03/19 18:56 Primary Care Provider: ALAYNA LARRY MD [Primary Care Provider] - Follow up as needed Mode of Arrival: Wheelchair Information source: Patient, Relative Notes: 88-year-old female presented to ED for pain in the left hip and knee. She st ates she was trying to grab the chair missed grabbed the table and fell causing pain to her hip and knee. She states she is not able to walk. Daughter is present with the patient. Patient is in a wheelchair. Patient is alert and oriented respirations are regular nonlabored speaking in full sentences. States she is been falling a lot lately. I have greeted and performed a rapid initial assessment of this patient. A comprehensive ED assessment and evaluation of the patient, analysis of test results and completion of medical decision making process will be conducted by an additional ED providers. Dictation of this chart was performed using voice recognition software; therefore, there may be some unintended grammatical errors. TRAVEL OUTSIDE OF THE [place] IN LAST 30 DAYS: No - Related Data Allergies/Adverse Reactions: aspirin [Aspirin] Allergy (Severe, Verified 04/03/19 18:32) Swelling of Throat morphine [Morphine] Allergy (Intermediate, Verified 04/03/19 18:32) Penicillins Allergy (Intermediate, Verified 04/03/19 18:32) fentanyl [Fentanyl] Allergy (Verified 04/03/19 18:32) tachycardia, apnea, "feels like room is closing in" hydromorphone HCl [From Dilaudid] Allergy (Verified 04/03/19 18:32) "feels like throat is closing" Iodinated Contrast- Oral and IV Dye [IV Dye, Iodine Containing] Allergy (Verifi ed 04/03/19 18:32) Sulfa (Sulfonamide Antibiotics) Allergy (Verified 04/03/19 18:32) hydromorphone [From Dilaudid] Adverse Reaction (Verified 04/03/19 18:32) Past Medical History - Past Medical History Cardiac Medical History: Reports: Hx Hypercholesterolemia, Hx Hypertension Denies: Hx Coronary Artery Disease, Hx Heart Attack Pulmonary Medical History: Denies: Hx Asthma, Hx Bronchitis, Hx COPD, Hx Pneumonia Neurological Medical History: Reports: Hx Cerebrovascular Accident - 2010, Hx Seizures Renal/ Medical History: Denies: Hx Peritoneal Dialysis GI Medical History: Reports: Hx Gastroesophageal Reflux Disease Musculoskeltal Medical History: Reports Hx Arthritis Psychiatric Medical History: Reports: Hx Depression Past Surgical History: Reports: Hx Hysterectomy, Hx Neurologic Surgery - Brain aneurysm clip, Hx Orthopedic Surgery - Lt hip fx repair, Hx Thyroid Surgery - partial, Other - Bilobed Right MCA aneurysm clipping in 2009. Denies: Hx Pacemaker - Immunizations Hx Diphtheria, Pertussis, Tetanus Vaccination: No Physical Exam - Vital signs Vitals: Temp Pulse Resp BP Pulse Ox 98.3 F 78 20 151/70 H 100 04/03/19 18:54 04/03/19 18:54 04/03/19 18:54 04/03/19 18:54 04/03/19 18:54 Course - Vital Signs Vital signs: Temp Pulse Resp BP Pulse Ox 98.3 F 78 20 151/70 H 100 04/03/19 18:54 04/03/19 18:54 04/03/19 18:54 04/03/19 18:54 04/03/19 18:54 Doctor's Discharge - Discharge Referrals: ALAYNA LARRY MD [Primary Care Provider] - Follow up as needed
--- NOTE | 2019-04-03 19:50 | RADIOLOGY REPORT (SQ) ---
EXAM DESCRIPTION: HIP LEFT AP/LATERAL COMPLETED DATE/TIME: 04/03/2019 7:15 pm REASON FOR STUDY: [place] pain in the knee and hip COMPARISON: 05/28/2018 and earlier NUMBER OF VIEWS: Two views. TECHNIQUE: AP pelvis and additional frog-leg view of the left hip. LIMITATIONS: None. FINDINGS: MINERALIZATION: Osteopenia. LEFT HIP: 3 partially threaded screws traverse the left femoral head and neck. No perihardware lucen cy or hardware fracture. No acute fracture. Unchanged mild left hip joint space narrowing. RIGHT HIP: No fracture or dislocation. No worrisome bone lesions. Unchanged mild right hip joint sp kathy narrowing small marginal osteophytes. PUBIS AND ISCHIUM: No fracture. PELVIS: No fracture. SACRUM: No fracture or dislocation. No worrisome bone lesions. 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 SOFT TISSUES: No findings. OTHER: No other significant finding. IMPRESSION: 1. No acute fracture or dislocation. 2. Unchanged mild bilateral hip osteoarthrosis. TECHNICAL DOCUMENTATION: JOB ID: [id number] [employer]- All Rights Reserved Reading location - IP/workstation name: [email or web address]
--- NOTE | 2019-04-03 19:51 | RADIOLOGY REPORT (SQ) ---
EXAM DESCRIPTION: KNEE LEFT 4 VIEW COMPLETED DATE/TIME: 04/03/2019 7:15 pm REASON FOR STUDY: [place] pain in the knee and hip COMPARISON: 11/12/2017 NUMBER OF VIEWS: Four views. TECHNIQUE: AP, lateral, and both oblique radiographic images acquired of the left knee. LIMITATIONS: None. FINDINGS: MINERALIZATION: Osteopenia. BONES: No acute fracture or dislocation. No worrisome bone lesions. JOINT: No effusion. SOFT TISSUES: No radiopaque foreign body or soft tissue gas. Scattered vascular calcifications. OTHER: No other significant finding. IMPRESSION: NEGATIVE STUDY OF THE LEFT KNEE. NO RADIOGRAPHIC EVIDENCE OF ACUTE INJURY. TECHNICAL DOCUMENTATION: JOB ID: [id number] [employer]- All Rights Reserved Reading location - IP/workstation name: [email or web address]
--- NOTE | 2019-04-03 21:07 | ER Document Report ---
ED Fall - General Chief Complaint: Fall Stated Complaint: FALL/LEFT LEG PAIN Time Seen by Provider: 04/03/19 18:56 Primary Care Provider: ALAYNA LARRY MD [Primary Care Provider] - 04/05/19 Mode of Arrival: Wheelchair Information source: Patient, Relative Notes: Patient is an 88-year-old female who presents the emergency department after a fall. She states that she was reaching down to grab her chair, but missed her chair and grab the table, then fell down. She has complaints of left knee pain and hip pain. She denies any chest pain, abdominal pain, shortness of breath, difficulty breathing, or any other symptoms at this time. States that her weakness that she has is her normal weakness from her stroke she had. She has history of falls in the past. Her most recent one was earlier this month. She has history of CVA in 2009. TRAVEL OUTSIDE OF THE [place] IN LAST 30 DAYS: No - Related data Allergies/Adverse Reactions: aspirin [Aspirin] Allergy (Severe, Verified 04/03/19 18:32) Swelling of Throat morphine [Morphine] Allergy (Intermediate, Verified 04/03/19 18:32) Penicillins Allergy (Intermediate, Verified 04/03/19 18:32) fentanyl [Fentanyl] Allergy (Verified 04/03/19 18:32) tachycardia, apnea, "feels like room is closing in" hydromorphone HCl [From Dilaudid] Allergy (Verified 04/03/19 18:32) "feels like throat is closing" Iodinated Contrast- Oral and IV Dye [IV Dye, Iodine Containing] Allergy (Verified 04/03/19 18:32) Sulfa (Sulfonamide Antibiotics) Allergy (Verified 04/03/19 18:32) hydromorphone [From Dilaudid] Adverse Reaction (Verified 04/03/19 18:32) Past Medical History - General Information source: Patient, Relative - Social History Smoking Status: Never Smoker Family History: Reviewed & Not Pertinent Patient has suicidal ideation: No Patient has homicidal ideation: No - Past Medical History Cardiac Medical History: Reports: Hx Hypercholesterolemia, Hx Hypertension Denies: Hx Coronary Artery Disease, Hx Heart Attack Pulmonary Medical History: Denies: Hx Asthma, Hx Bronchitis, Hx COPD, Hx Pneumonia Neurological Medical History: Reports: Hx Cerebrovascular Accident - 2010, Hx Seizures Renal/ Medical History: Denies: Hx Peritoneal Dialysis GI Medical History: Reports: Hx Gastroesophageal Reflux Disease Musculoskeletal Medical History: Reports Hx Arthritis Psychiatric Medical History: Reports: Hx Depression Past Surgical History: Reports: Hx Hysterectomy, Hx Neurologic Surgery - Brain aneurysm clip, Hx Orthopedic Surgery - Lt hip fx repair, Hx Thyroid Surgery - partial, Other - Bilobed Right MCA aneurysm clipping in 2009. Denies: Hx Pacemaker - Immunizations Hx Diphtheria, Pertussis, Tetanus Vaccination: No Hx Pneumococcal Vaccination: 11/22/11 Review of Systems - Review of Systems Notes: REVIEW OF SYSTEMS: CONSTITUTIONAL : Denies recent illness. Denies recent unintentional weight loss. Denies fever, chills, or sweats. EENT: Denies eye, ear, throat, or mouth pain, discharge, or symptoms. Denies nasal or sinus congestion. CARDIOVASCULAR: Denies chest pain. RESPIRATORY: Denies shortness of breath, cough, congestion, difficulty breathing, or wheezing. GASTROINTESTINAL: Denies nausea, vomiting, and diarrhea. Denies abdominal pain. Denies constipation. GENITOURINARY: Denies difficulty urinating, burning, blood in urine, urgency or frequency. MUSCULOSKELETAL: See HPI SKIN: Denies rash, itchiness, or lesions HEMATOLOGIC : Denies easy bruising or bleeding. LYMPHATIC: Denies swollen, painful, enlarged glands. NEUROLOGICAL: Denies no numbness or tingling denies weakness. Denies headache. Denies altered mental status. Denies alteration in speech. PSYCHIATRIC: Denies stress, anxiety, alteration in sleep patterns, or depression. All other systems reviewed and negative. Physical Exam - Vital signs Vitals: Temp Pulse Resp BP Pulse Ox 98.3 F 78 20 151/70 H 100 04/03/19 18:54 04/03/19 18:54 04/03/19 18:54 04/03/19 18:54 04/03/19 18:54 - Notes Notes: PHYSICAL EXAMINATION: GENERAL: Appears age, well-nourished, no acute distress. HEAD: Normocephalic, atraumatic. Left-sided facial droop, consistent with previous stroke from 2009. EYES: PERRL, conjunctiva normal, all extraocular movements intact, sclera nonicteric ENT: Moist mucous membranes. NECK: Supple, no noticeable swelling, redness, rash. Normal range of motion. LUNGS: Equal breath sounds bilaterally and clear to auscultation. No wheezes rales or rhonchi. CARDIOVASCULAR: S1-S2, regular rate, regular rhythm. Radial pulses 2+, normal. ABDOMEN: Normoactive bowel sounds. Soft, nontender, no guarding, no rebound tenderness, and no masses palpated. EXTREMITIES: Normal strength and range of motion, no pitting or edema. No cyanosis. NEUROLOGICAL: 2 out of 5 strength on the left side, consistent with her normal left-sided weakness. GCS 15 PSYCH: Normal mood, normal affect. SKIN: Warm, dry. No rash, lesions, ulcerations noted. Normal skin turgor. Course - Re-evaluation Re-evalutation: 04/03/19 23:[address] of the head and the neck are unremarkable with this time. She does have chronic changes in all her hip imaging. Her urinalysis is unremarkable. I have reassessed her and she still has some pain, but she just received her pain medication. I will reassess her after her pain medication has started to work. We will try to walk her and see if she is stable for discharge. 04/04/19 00:23 Patient was able to sit on the side of the bed, but was hesitant to put pressure on her left leg, as she does have some pain. She states that she does get some muscle spasms. I have spoke to with the patient and her daughter in regards to following up with her primary care provider. I have also suggested the patient have home physical therapy. They are in agreement with speaking with her primary care provider. I will also give her some tramadol, as she has taken this medication with no side effects before. At this time, the patient is stable for discharge. Patient and daughter in agreement with this plan. Verbal discharge instructions were given to the patient. They verbalized understanding. They are stable for discharge. - Vital Signs Vital signs: Temp Pulse Resp BP Pulse Ox 98.3 F 73 16 156/74 H 100 04/04/19 00:54 04/04/19 00:54 04/04/19 00:54 04/04/19 00:54 04/04/19 00:54 - Laboratory Laboratory results interpreted by me: 04/03/19 22:10 Ur Leukocyte Esterase TRACE H Discharge - Discharge Clinical Impression: Fall Qualifiers: Encounter type: initial encounter Qualified Code(s): W19.XXXA - Unspecified fall, initial encounter Condition: Stable Disposition: HOME, SELF-CARE Additional Instructions: You were seen today in the emergency department after a fall. There is no fracture at this time. Please follow-up with your primary care provider on Friday in regards to this visit. You have been given pain medication. You may take 1 tablet every 6 hours as needed for your pain. Please make sure you you have somebody with you at all times when you get up. Please do not get up on your own. As discussed, speak with your primary care provider about options if staying at home is not feasible for you. If you develop any chest pain, shortness of breath, fall, or have any worsening symptoms, please return to the emergency department. Prescriptions: Tramadol HCl [Ultram 50 mg Tablet] 50 mg PO Q6HP PRN #10 tablet PRN Reason: Referrals: ALAYNA LARRY MD [Primary Care Provider] - 04/05/19
--- NOTE | 2019-04-03 22:16 | RADIOLOGY REPORT (SQ) ---
EXAM DESCRIPTION: CT HEAD WITHOUT IV CONTRAST COMPLETED DATE/TME: 04/03/2019 21:06 : CLINICAL HISTORY: 88 years Female fall COMPARISON: None. TECHNIQUE: Contiguous axial CT images obtained through the brain without IV contrast. This exam was performed according to our department optimization program which includes automated exposure control, adjustment of the mA and/or kv according to patient size and/or use of iterative reconstruction technique. FINDINGS: Previous postsurgical change of right calvarial craniotomy with an aneurysm clip in the region of the MCA distribution. Previous infarct in the right MCA distribution with some shift of structures toward the atrophy. The ventricles and sulci are prominent consistent with atrophic changes. Microvascular ischemic changes. No midline shift or mass effect. No mass lesions. No acute hemorrhage. Atherosclerotic calcifications. Fluid and mucosal thickening in the right maxillary sinus. No depressed calvarial fractures. IMPRESSION: No acute intracranial abnormality is identified. Previous aneurysm clipping in the right MCA distribution with previous right MCA infarct Findings which may reflect sinusitis in the right maxillary sinus Generalized atrophy with microvascular ischemic changes.
[2019-04-03] MEDS ORDERED: TRAMADOL HCL 50 MG TABLET PO ONE (22:21)
--- NOTE | 2019-04-03 22:23 | RADIOLOGY REPORT (SQ) ---
EXAM DESCRIPTION: CT CERVICAL SPINE WITHOUT IV CONTRAST COMPLETED DATE/TME: 04/03/2019 21:06 CLINICAL HISTORY: 88 years Female fall COMPARISON: None. TECHNIQUE: Contiguous axial images obtained through the cervical spine without IV contrast. Coronal and sagittal reformatted images obtained. This exam was performed according to our department optimization program which includes automated exposure control, adjustment of the mA and/or kv according to patient size and/or use of iterative reconstruction technique. FINDINGS: Vertebral body alignment is unremarkable. No acute fractures. C3-4: Severe neural foraminal stenosis on the right moderate on the left. C4-5: Moderate bilateral neural foraminal stenosis. C5-6: Right greater than left neural foraminal narrowing. C6-7 left neural foraminal stenosis. IMPRESSION: No acute cervical spinal fracture is identified.
--- NOTE | 2019-04-03 22:25 | RADIOLOGY REPORT (SQ) ---
EXAM DESCRIPTION: XR CHEST 1 VIEW COMPLETED DATE/TME: 04/03/2019 21:08 CLINICAL HISTORY: 88 years Female fall COMPARISON: 03/18/2019. FINDINGS: Cardiac size is stable. Tortuous aorta. No acute consolidation or evidence of edema. No pleural fluid. IMPRESSION: No acute abnormality is identified.
[2019-04-03 22:27] LABS: APPEARANCE,URINE SLIGHTLY-CLOUDY; BILIRUBIN,URINE NEGATIVE (NEGATIVE); COLOR,URINE YELLOW; GLUCOSE, URINE NEGATIVE (NEGATIVE); KETONES,URINE NEGATIVE (NEGATIVE); LEUKOCYTE ESTERASE,URINE TRACE (NEGATIVE); NITRITE,URINE NEGATIVE (NEGATIVE); PROTEIN,URINE NEGATIVE (NEGATIVE); URINE SPECIFIC GRAVITY 1.014; UROBILINOGEN,URINE NEGATIVE mg/dL (<2.0)
[2019-04-04] MEDS ORDERED: TRAMADOL HCL 50 MG TABLET PO ONE (00:48)
[2019-04-04 00:56] VITALS: BP 156/74
== END 2019-04-04 00:54 | disposition home or self-care (01) ==
LOC: ER 18:27
DX: M25.562 Pain in left knee (principal); M25.552 Pain in left hip; W18.39XA Other fall on same level, initial encounter; Y93.89 Activity, other specified; M16.0 Bilateral primary osteoarthritis of hip; I69.354 Hemiplegia and hemiparesis following cerebral infarction affecting left non-dominant side; I10 Essential (primary) hypertension; M62.838 Other muscle spasm; Z88.6 Allergy status to analgesic agent; Z88.5 Allergy status to narcotic agent; Z88.0 Allergy status to penicillin; Z91.041 Radiographic dye allergy status; Z88.2 Allergy status to sulfonamides
CPT/HCPCS: 99284; 81001; 71045; 73502; 73564; 70450; 72125; A9270 ×2

== ENCOUNTER 2019-04-20 10:23 | Day surgery (SDC) | payer MEDICARE, OTHER ==
[~2019-04-20 10:23] MED LIST changes: +DOXYCYCLINE HYCLATE 100 MG in DEXTROSE 5%-WATER 250 ML IV PRN; -LACTATED RINGERS 1000 ML IV PRN; -LIDOCAINE 0.5% INJ-PF (5 MG/ML) 50 ML SDV SUBCUT PRN; +MIDAZOLAM 2 MG/2 ML INJ ONE; +ONDANSETRON HCL INJ/PF 4 MG/2 ML SDV ONE; +POVIDONE-IODINE 5% OPH PREP SOLN 30 ML ONE; +PROPOFOL INJ 200 MG/20 ML VIAL IV ONE; +SODIUM BICARBONATE 4.2% INJ (2.5 MEQ/5 ML) VIAL ONE; -SODIUM BICARBONATE 8.4% INJ 50 MEQ/50 ML DISP.SYRIN ONE
[2019-04-20 12:30] LABS: ABSOLUTE BASOPHILS # (AUTO) 0.1 10^3/uL (0.0-0.2); ABSOLUTE EOSINOPHILS # (AUTO) 0.2 10^3/uL (0.0-0.6); ABSOLUTE LYMPHOCYTES (AUTO) 1.5 10^3/uL (0.5-4.7); ABSOLUTE MONOCYTES (AUTO) 0.5 10^3/uL (0.1-1.4); ABSOLUTE NEUT (AUTO) 3.9 10^3/uL (1.7-8.2); BASOPHILS % (AUTO) 1.1 % (0-2); EOSINOPHILS % (AUTO) 2.6 % (0-6); HEMATOCRIT 33.1 % (36.0-47.0); HEMOGLOBIN 11.2 g/dL (12.0-15.5); MEAN CORPUSCULAR HEMOGLOBIN 27.4 pg (27.0-33.4); MEAN CORPUSCULAR VOLUME 81 fl (80-97); MONOCYTES % (AUTO) 8.1 % (3-13); PLATELET COUNT 236 10^3/uL (150-450); RED CELL DISTRIBUTION WIDTH 15.3 % (11.5-14.0); SEGMENTED NEUTROPHILS % (AUTO) 64.2 % (42-78); TOTAL CELLS COUNTED % (AUTO) 100 %; WHITE BLOOD COUNT 6.1 10^3/uL (4.0-10.5)
[2019-04-20] MEDS ORDERED: DIPHENHYDRAMINE HCL 50 MG/ML VIAL IV PRN (13:15)
[2019-04-20] MEDS ORDERED: ONDANSETRON HCL INJ/PF 4 MG/2 ML SDV IV PRN (13:15)
[2019-04-20] MEDS ORDERED: MEPERIDINE HCL/PF INJ 25 MG/1 ML DISP.SYRIN IV PRN (13:15)
[2019-04-20] MEDS ORDERED: FENTANYL CITRATE INJ/PF 100 MCG/2 ML AMPUL IV PRN ×3 (13:15)
[2019-04-20] MEDS ORDERED: PROMETHAZINE HCL INJ 25 MG/1 ML VIAL IV PRN ×2 (13:15)
--- NOTE | 2019-04-20 13:59 | EKG REPORT ---
SEVERITY:- ABNORMAL ECG - SINUS RHYTHM FIRST DEGREE AV BLOCK BORDERLINE T ABNORMALITIES, LATERAL LEADS : Confirmed by: Asif Jacobson MD 20-Apr-2019 13:58:24
--- NOTE | 2019-04-20 14:23 | Operative Report ---
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 Margins were finally cleared after the second frozen section. 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 Patient was brought into the operating room and placed on the operating room table in a supine position. Patient was then prepped with a Betadine scrub and Betadine solution and draped in a sterile and aseptic manner. The area was then marked. 12 O'clock was marked towards the medial canthus 3 O'clock was marked towards the lower eyelid 6:00 was marked towards the lateral canthus 9:00 was marked towards the lateral brow The area was then anesthetized with 1% lidocaine with epinephrine and bicarbonate for its anesthetic and hemostatic effects. The area was then excised and marked at 12:00. The specimen was sent for frozen section. The pathologist had examined the specimen and and felt that it was a possible follicular tumor but that it was initially thought of as benign. After further examination it was then felt that there was atypical cells and these were located at around the 6:00 superficial and deep margin. He requested a resection of this area which was performed including approximately the 4-8 margin with the 6:00 margin in the center. This was tagged and sent for frozen section which came back clear. As per Dr. Ribera the final margins were now clear. We had considered a primary closure but this would go against the natural relaxed skin tension lines. A primary closure would be too tight and would have increased chance of dehiscence. This will leave more of a scar so we decided to use a O to S flap reconstruction which would camouflage the scar better and take tension off of the closure so that would be less chances of complications. The reconstructive flap was designed so that it would take minimal amount of tension from the horizontal direction of the upper eyelid and cause minimal elevation of the upper eyelid. Attention was distributed more in the horizontal direction rather than a vertical direction so the patient would have no problems with closure of the eyelid. Tension sutures would be at the brow area and the lateral canthal area. Then we went ahead and outlined the flap and anesthetized it. We then incised the flap and developed a flap maintaining the subdermal plexus. Then we undermined 360 to allow for plate like scarring and minimize trap door deformity. Throughout the case hemostasis was achieved with the bipolar. We then sutured the flap into its new position using 5-0 Vicryl for the subcutaneous and deep dermis. Skin was closed with a running stitch using 5-0 Prolene with knots being tied on the outside. Interrupted 5-0 Prolene support stitches were also placed because of the thin nature of the patient's skin in this area. We then applied tincture benzoin and Steri-Strips followed by a light pressure dressing. Patient was then reversed from anesthesia and taken to the [facility] for recovery. The patient tolerated well. There were no complications. Lesion size was approximately 1.4 cm please see pathology for actual size. Portions of this note may be dictated using [employer] voice recognition software. Occasional variations and spelling and vocabulary could be possible and are unintentional. Additionally, there is a chance that some errors may not be caught or corrected. Please notify the author of any discrepancies noted or if any statements are unclear. Subjective: No complaints Objective: Vital signs stable afebrile No bleeding Dressing intact Assessment and plan: Doing well. Elevate the operative site. Resume medications. Take antibiotics for 1 day Follow-up Full instructions were given to the patient and family and they understand Portions of this note may be dictated using [employer] voice recognition software. Occasional variations and spelling and vocabulary could be possible and are unintentional. Additionally, there is a chance that some errors may not be caught or corrected. Please notify the offer of any discrepancies noted or if any statements are unclear.
--- NOTE | 2019-04-20 14:24 | Discharge Summary ---
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 Date of Surgery: 04/20/19 Condition: Good Treatment or Instructions: Leave the top dressing on for 2 days, then removed. Leave the steri-strip tapes on for 5 days, then removal. Then cleaning wound with peroxide and apply Neosporin/bacitracin 3 times per day. Antibiotics for 1 day, then discontinue. Elevate operative area to decrease swelling. Do not strain, or lift heavy objects. Call for excessive bleeding, increased temperature of 101, uncontrolled pain, or excessive nausea or vomiting. You may reach Dr. Johns through his office at [phone]. In the event of an emergency after hours, then contact Dr. Johns through [facility]. Return to the office for a postop check on . The time will be scheduled by the nursing staff of [facility] prior to discharge. Please give the patient a copy of their labs and EKG so they can bring this to their PMD. Thank you Portions of this note may be dictated using [employer] voice recognition software. Occasional variations and spelling and vocabulary could be possible and are unintentional. Additionally, there is a chance that some errors may not be caught or corrected. Please notify the offer of any discrepancies noted or if any statements are unclear. Referrals: ALAYNA LARRY MD [Primary Care Provider] - Discharge Diet: As Tolerated Discharge Activity: No Lifting/Push/Pulling Report the Following to Your Physician Immediately: Unusual Bleeding - Keep head elevated. Be sure eyelid closes when sleeping. Do not rub the area.
[2019-04-20 15:52] VITALS: BP 150/66
== END 2019-04-20 15:45 | disposition home or self-care (01) ==
LOC: OROUT 10:23
PROVIDERS: ATTEND Plastic Surgery
DX: D23.111 Other benign neoplasm of skin of right upper eyelid, including canthus (principal); L82.1 Other seborrheic keratosis; L57.0 Actinic keratosis; G40.909 Epilepsy, unspecified, not intractable, without status epilepticus; E78.00 Pure hypercholesterolemia, unspecified; E07.9 Disorder of thyroid, unspecified; I10 Essential (primary) hypertension; I69.354 Hemiplegia and hemiparesis following cerebral infarction affecting left non-dominant side; D64.9 Anemia, unspecified; Z79.899 Other long term (current) drug therapy; Z85.828 Personal history of other malignant neoplasm of skin
CPT/HCPCS: 84132; 85025; 88305 ×2; 88331 ×2; 93005; 93010; 00300; 14060; J2250; J3490 ×3; J2405; J7060; J2704; 300

== ENCOUNTER 2019-04-27 21:57 | Emergency (ER) | payer MEDICARE, OTHER ==
[2019-04-27 23:13] LABS: ABSOLUTE BASOPHILS # (AUTO) 0.1 10^3/uL (0.0-0.2); ABSOLUTE EOSINOPHILS # (AUTO) 0.2 10^3/uL (0.0-0.6); ABSOLUTE LYMPHOCYTES (AUTO) 2.3 10^3/uL (0.5-4.7); ABSOLUTE MONOCYTES (AUTO) 0.9 10^3/uL (0.1-1.4); ABSOLUTE NEUT (AUTO) 6.4 10^3/uL (1.7-8.2); EOSINOPHILS % (AUTO) 2.5 % (0-6); HEMATOCRIT 34.4 % (36.0-47.0); HEMOGLOBIN 11.6 g/dL (12.0-15.5); LYMPHOCYTES % (AUTO) 23.3 % (13-45); MEAN CORPUSCULAR HEMOGLOBIN 27.4 pg (27.0-33.4); MEAN CORPUSCULAR HGB CONC 33.7 g/dL (32.0-36.0); MEAN CORPUSCULAR VOLUME 81 fl (80-97); MONOCYTES % (AUTO) 9.3 % (3-13); PLATELET COUNT 263 10^3/uL (150-450); RED BLOOD COUNT 4.23 10^6/uL (3.72-5.28); RED CELL DISTRIBUTION WIDTH 15.9 % (11.5-14.0); SEGMENTED NEUTROPHILS % (AUTO) 63.9 % (42-78); TOTAL CELLS COUNTED % (AUTO) 100 %; WHITE BLOOD COUNT 10.1 10^3/uL (4.0-10.5)
[2019-04-27 23:30] LABS: ALANINE AMINOTRANSFERASE 13 U/L (9-52); ALBUMIN 4.1 g/dL (3.5-5.0); ALKALINE PHOSPHATASE 89 U/L (38-126); ANION GAP 13 (5-19); ASPARTATE AMINO TRANSFERASE 14 U/L (14-36); BILIRUBIN,DIRECT 0.5 mg/dL (0.0-0.4); BILIRUBIN,TOTAL 0.6 mg/dL (0.2-1.3); BLOOD UREA NITROGEN 40 mg/dL (7-20); CALCIUM 10.1 mg/dL (8.4-10.2); CARBON DIOXIDE 26 mmol/L (22-30); CHLORIDE 102 mmol/L (98-107); GLUCOSE 108 mg/dL (75-110); LIPASE 147.2 U/L (23-300); POTASSIUM 3.6 mmol/L (3.6-5.0); SODIUM 140.5 mmol/L (137-145); TOTAL PROTEIN 6.4 g/dL (6.3-8.2)
[2019-04-28 00:37] LABS: APPEARANCE,URINE SLIGHTLY-CLOUDY; BILIRUBIN,URINE NEGATIVE (NEGATIVE); COLOR,URINE YELLOW; GLUCOSE, URINE NEGATIVE (NEGATIVE); KETONES,URINE NEGATIVE (NEGATIVE); LEUKOCYTE ESTERASE,URINE TRACE (NEGATIVE); NITRITE,URINE NEGATIVE (NEGATIVE); PROTEIN,URINE NEGATIVE (NEGATIVE); URINE SPECIFIC GRAVITY 1.023
[2019-04-28] MEDS ORDERED: RINGERS SOLUTION,LACTATED 500 ML IV ONE (02:57)
--- NOTE | 2019-04-28 02:59 | ER Document Report ---
ED General - General Chief Complaint: Diarrhea Stated Complaint: DIARRHEA Time Seen by Provider: 04/28/19 00:05 Primary Care Provider: ALAYNA LARRY MD [Primary Care Provider] - Follow up tomorrow Cannot obtain history due to: Dementia Notes: Patient is an 88-year-old female with past medical history of vascular dementia, not able to provide meaningful history, no family member available at bedside at time of my who presents with concerns of diarrhea for the past 24 to 36 hours. Patient reports that she has had multiple diarrheal episodes and insists that there are worms in the diarrhea. Apparently daughter who is at bedside earlier states that there were no warmth in the diarrhea. Patient denies any abdominal pain. Nothing seems to improve or worsen her symptoms. Denies associated vomiting. History otherwise limited secondary to patient's advanced dementia. TRAVEL OUTSIDE OF THE [place] IN LAST 30 DAYS: No - Related Data Allergies/Adverse Reactions: aspirin [Aspirin] Allergy (Severe, Verified 04/27/19 21:59) Swelling of Throat morphine [Morphine] Allergy (Intermediate, Verified 04/27/19 21:59) Penicillins Allergy (Intermediate, Verified 04/27/19 21:59) fentanyl [Fentanyl] Allergy (Verified 04/27/19 21:59) tachycardia, apnea, "feels like room is closing in" hydromorphone HCl [From Dilaudid] Allergy (Verified 04/27/19 21:59) "feels like throat is closing" Iodinated Contrast- Oral and IV Dye [IV Dye, Iodine Containing] Allergy (Verified 04/27/19 21:59) Sulfa (Sulfonamide Antibiotics) Allergy (Verified 04/27/19 21:59) hydromorphone [From Dilaudid] Adverse Reaction (Verified 04/27/19 21:59) Past Medical History - General Information source: Patient - Social History Smoking Status: Never Smoker Frequency of alcohol use: None Drug Abuse: None Lives with: Family Family History: Reviewed & Not Pertinent Patient has suicidal ideation: No Patient has homicidal ideation: No - Past Medical History Cardiac Medical History: Reports: Hx Hypercholesterolemia, Hx Hypertension Denies: Hx Coronary Artery Disease, Hx Heart Attack Pulmonary Medical History: Denies: Hx Asthma, Hx Bronchitis, Hx COPD, Hx Pneumonia Neurological Medical History: Reports: Hx Cerebrovascular Accident - 2010, Hx Seizures Renal/ Medical History: Denies: Hx Peritoneal Dialysis GI Medical History: Reports: Hx Gastroesophageal Reflux Disease Musculoskeletal Medical History: Reports Hx Arthritis Psychiatric Medical History: Reports: Hx Depression Past Surgical History: Reports: Hx Hysterectomy, Hx Neurologic Surgery - Brain aneurysm clip, Hx Orthopedic Surgery - Lt hip fx repair, Hx Thyroid Surgery - partial, Other - Bilobed Right MCA aneurysm clipping in 2009. Denies: Hx Pacemaker - Immunizations Hx Diphtheria, Pertussis, Tetanus Vaccination: No Hx Pneumococcal Vaccination: 11/22/11 Review of Systems - Review of Systems Notes: Constitutional: Negative for fever. HENT: Negative for sore throat. Eyes: Negative for visual changes. Cardiovascular: Negative for chest pain. Respiratory: Negative for shortness of breath. Gastrointestinal: Positive for diarrhea Genitourinary: Negative for dysuria. Musculoskeletal: Negative for back pain. Skin: Negative for rash. Neurological: Negative for headaches, weakness or numbness. 10 point ROS negative except as marked above and in HPI. Physical Exam - Vital signs Vitals: Temp Pulse Resp BP Pulse Ox 98.2 F 90 22 H 122/70 99 04/27/19 22:37 04/27/19 22:37 04/27/19 22:37 04/27/19 22:37 04/27/19 22:37 Interpretation: Normal Notes: PHYSICAL EXAMINATION: GENERAL: Elderly female in no acute distress HEAD: Atraumatic, normocephalic. EYES: Pupils equal round and reactive to light, extraocular movements intact, sclera anicteric, conjunctiva are normal. ENT: nares patent, oropharynx clear without exudates. Moderately dry mucous membranes. NECK: Normal range of motion, supple without lymphadenopathy LUNGS: Breath sounds clear to auscultation bilaterally and equal. No wheezes rales or rhonchi. HEART: Regular rate and rhythm without murmurs ABDOMEN: Soft, nontender, normoactive bowel sounds. No guarding, no rebound. No masses appreciated. EXTREMITIES: Normal range of motion, no pitting or edema. No cyanosis. NEUROLOGICAL: No focal neurological deficits. Moves all extremities spontaneously and on command. PSYCH: Alert, oriented only to person SKIN: Warm, Dry, normal turgor, no rashes or lesions noted. Course - Re-evaluation Re-evalutation: 04/28/19 02:58 Patient presents with complaints of diarrhea for the past 36 hours. On exam the patient has no focal abdominal tenderness, rebound or guarding. She has not bee n able to have a bowel movement for over 2 hours here in the emergency department and is tolerated oral intake without difficulty. Suspect probable infectious etiology although stool testing is unable to be completed at this time due to lack of stool sample. Vitals show mild prerenal azotemia, minimally worse than most recent assessment with in the past 1 month. Patient was administered IV fluids and has been encouraged to have recheck of her labs to ensure improvement. At this time will discharge with return precautions and follow-up recommendations. Verbal discharge instructions given a the bedside and opportunity for questions given. Medication warnings reviewed. Patient is in agreement with this plan and has verbalized understanding of return precautions and the need for primary care follow-up in the next 24-72 hours. - Vital Signs Vital signs: Temp Pulse Resp BP Pulse Ox 98.2 F 90 12 119/57 L 98 04/27/19 22:37 04/27/19 22:37 04/28/19 01:01 04/28/19 01:01 04/28/19 01:01 - Laboratory Result Diagrams: 04/27/19 22:56 04/27/19 22:56 Laboratory results interpreted by me: 04/27/19 04/27/19 04/28/19 22:56 22:56 00:14 Hgb 11.6 L Hct 34.4 L RDW 15.9 H BUN 40 H Creatinine 1.65 H Est GFR ( Amer) 36 L Est GFR (Non-Af Amer) 29 L Direct Bilirubin 0.5 H Urine Urobilinogen 2.0 H Ur Leukocyte Esterase TRACE H Discharge - Discharge Clinical Impression: Prerenal azotemia Diarrhea Qualifiers: Diarrhea type: presumed infectious Qualified Code(s): R19.7 - Diarrhea, unspecified Condition: Stable Disposition: HOME, SELF-CARE Additional Instructions: Your labs are normal today with the exception of mild worsening of your kidney function. You have been provided fluids through an IV to help improve the kidney function and need to have your kidney functions rechecked by her primary doctor within the next 1 week. This is likely due to dehydration from your di arrhea. Unfortunately you been unable to provide a stool sample while here in the emergency department so we are unable to test for any possible infections. Please return if you have worsening diarrhea, increasing pain to your abdomen, fever greater than 100.4 F, have vomiting, or have any other symptoms that are worrisome to you. Referrals: ALAYNA LARRY MD [Primary Care Provider] - Follow up tomorrow
[2019-04-28 04:13] VITALS: BP 135/65
== END 2019-04-28 04:29 | disposition home or self-care (01) ==
LOC: ER 21:57
DX: R79.89 Other specified abnormal findings of blood chemistry (principal); R19.7 Diarrhea, unspecified; F01.50 Vascular dementia, unspecified severity, without behavioral disturbance, psychotic disturbance, mood disturbance, and anxiety; I10 Essential (primary) hypertension; E78.00 Pure hypercholesterolemia, unspecified; Z88.6 Allergy status to analgesic agent; Z88.0 Allergy status to penicillin; Z90.710 Acquired absence of both cervix and uterus
CPT/HCPCS: 99284; 96360; 36415; 83690; 85025; 80053; 81001; J7120

== ENCOUNTER 2019-04-28 08:29 | Emergency (ER) | payer MEDICARE, OTHER ==
[2019-04-28] MEDS ORDERED: LIDOCAINE 1%/EPINEPHRINE INJ 20 ML VIAL INJ ONE (08:38)
[2019-04-28 08:46] VITALS: BP 151/71
--- NOTE | 2019-04-28 08:48 | ER Document Report ---
ED Fall - General Chief Complaint: Fall Injury Stated Complaint: FALL,HEAD INJURY Time Seen by Provider: 04/28/19 08:38 Primary Care Provider: ALAYNA LARRY MD [Primary Care Provider] - Follow up as needed TRAVEL OUTSIDE OF THE [place] IN LAST 30 DAYS: No - HPI Notes: Patient is a 88-year-old female that presents to the emergency department for chief complaint of head injury. Just prior to coming in the emergency room patient states she was getting out of bed and walking around a table when she lost her balance and fell. She denies syncope. She did hit her head on the cement floor. She denies any loss of consciousness. Her family member heard her fall and came in. She did not have any witnessed seizure activity or postictal state. Patient was at baseline mental status when the caregiver found her. She is not on any blood thinning medication. Patient complaining of pain in the back of her neck and top of her head. Her caregiver believes she hit her head on a cabinet that was nearby but is not sure since the fall was not witnessed. Patient was just recently seen in the emergency room for diarrhea and denies any issues or concerns with that currently. Past Medical History: Reviewed in chart Past Surgical History: Reviewed in chart Social History: Lives at home with family, denies alcohol use Family History: Reviewed and noncontributory for presenting illness Allergies: Reviewed, see documented allergy list. REVIEW OF SYSTEMS: CONSTITUTIONAL : No fever No chills No diaphoresis No recent illness EENT: No vision changes No congestion No sore throat CARDIOVASCULAR: No chest pain No palpitations RESPIRATORY: No shortness of breath No cough No difficulty breathing GASTROINTESTINAL: No abdominal pain No nausea No vomiting No diarrhea GENITOURINARY: No dysuria No hematuria No difficulty urinating MUSCULOSKELETAL: No back pain No leg pain No arm pain Neck pain SKIN: No rashes No lesions LYMPHATIC: No swollen, enlarged glands. NEUROLOGICAL: No lightheadedness headache No weakness No paresthesias PSYCHIATRIC: No anxiety No depression PHYSICAL EXAMINATION: Vital signs reviewed, nursing noted reviewed. GENERAL: Well-appearing, well-nourished and in no acute distress. HEAD: Laceration to top of head without cephalohematoma or bony fluctuance, normocephalic. EYES: Eyes appear normal, extraocular movements intact, sclera anicteric, conjunctiva are normal. ENT: No nasal septal hematoma or nasal bridge tenderness, no facial bone tenderness, no dental injury, nares patent, oropharynx clear without exudates. Moist mucous membranes. NECK: Diffuse midline cervical spine tenderness with no appreciable step-offs, supple without lymphadenopathy LUNGS: Breath sounds clear to auscultation bilaterally and equal. No wheezes rales or rhonchi. HEART: Regular rate and rhythm without murmurs ABDOMEN: Soft, nontender, normoactive bowel sounds. No rebound, guarding, or rigidity. No masses appreciated. EXTREMITIES: Nontender, good range of motion, no pitting or edema. NEUROLOGICAL: No focal neurological deficits. Moves all extremities spontaneously Motor and sensory grossly intact on exam. PSYCH: Normal mood, normal affect. SKIN: Warm, Dry, normal turgor, 4.0 cm linear full-thickness laceration located midline on the top of patient's head with minimal bleeding and no appreciable underlying cephalohematoma. Sutures along right orbital rim laterally with well-healing surgical incision - Related data Allergies/Adverse Reactions: aspirin [Aspirin] Allergy (Severe, Verified 04/28/19 08:32) Swelling of Throat morphine [Morphine] Allergy (Intermediate, Verified 04/28/19 08:32) Penicillins Allergy (Intermediate, Verified 04/28/19 08:32) fentanyl [Fentanyl] Allergy (Verified 04/28/19 08:32) tachycardia, apnea, "feels like room is closing in" hydromorphone HCl [From Dilaudid] Allergy (Verified 04/28/19 08:32) "feels like throat is closing" Iodinated Contrast- Oral and IV Dye [IV Dye, Iodine Containing] Allergy (Verified 04/28/19 08:32) Sulfa (Sulfonamide Antibiotics) Allergy (Verified 04/28/19 08:32) hydromorphone [From Dilaudid] Adverse Reaction (Verified 04/28/19 08:32) Past Medical History - Social History Smoking Status: Never Smoker Family History: Reviewed & Not Pertinent - Past Medical History Cardiac Medical History: Reports: Hx Hypercholesterolemia, Hx Hypertension Denies: Hx Coronary Artery Disease, Hx Heart Attack Pulmonary Medical History: Denies: Hx Asthma, Hx Bronchitis, Hx COPD, Hx Pneumonia Neurological Medical History: Reports: Hx Cerebrovascular Accident - 2010, Hx Seizures Renal/ Medical History: Denies: Hx Peritoneal Dialysis GI Medical History: Reports: Hx Gastroesophageal Reflux Disease Musculoskeletal Medical History: Reports Hx Arthritis Psychiatric Medical History: Reports: Hx Depression Past Surgical History: Reports: Hx Hysterectomy, Hx Neurologic Surgery - Brain aneurysm clip, Hx Orthopedic Surgery - Lt hip fx repair, Hx Thyroid Surgery - partial, Other - Bilobed Right MCA aneurysm clipping in 2009. Denies: Hx Pacemaker - Immunizations Hx Diphtheria, Pertussis, Tetanus Vaccination: No Hx Pneumococcal Vaccination: 11/22/11 Physical Exam - Vital signs Vitals: Temp Pulse Resp BP Pulse Ox 98 F 70 16 151/71 H 97 04/28/19 08:33 04/28/19 08:33 04/28/19 08:33 04/28/19 08:33 04/28/19 08:33 Course - Re-evaluation Re-evalutation: 04/28/19 08:42 Vitals reviewed. Nursing notes reviewed. Patient had cervical spine tenderness and was placed in a c-collar. Her fall today is consistent with a mechanical fall from lack of balance. She does not have any report of loss of consciousness or syncope. Patient has a poor gait at baseline because of chronic left-sided weakness. She has no focal neurologic deficits on exam. CT scan of the head and cervical spine will be obtained to evaluate for underlying injury. Patient is not complaining of changes to her diarrhea which she presented for yesterday and currently not requiring any further work-up. Her laceration will be repaired with sophie. She does currently have sutures in her right face around her orbital rim which were put in after a procedure and are scheduled for removal in the next few days. The sutures are in place there is no active bleeding around the surgical incision. 04/28/19 09:[address] scan showed no acute injury from her fall today. Her laceration was repaired with sophie which she tolerated well. Patient's caregiver and patient were counseled on wound management and return precautions as well as close head injury precautions. Patient will be discharged home in stable condition. Cervical Spine CT 04/28/19 08:38 IMPRESSION: CHRONIC DEGENERATIVE CHANGES. NO ACUTE FINDINGS. Head CT 04/28/19 08:38 IMPRESSION: Stable, chronic changes. EVIDENCE OF ACUTE STROKE: NO. - Vital Signs Vital signs: Temp Pulse Resp BP Pulse Ox 98 F 70 16 151/71 H 97 04/28/19 08:33 04/28/19 08:33 04/28/19 08:33 04/28/19 08:33 04/28/19 08:33 Procedures - Laceration/Wound Repair Head Time completed: 09:27 Wound length (cm): 4.0 Wound's Depth, Shape: Linear, Other - Full-thickness Laceration pre-procedure: Sterile PPE donned, Sterile drapes applied, Shur-Clens applied Anesthetic type: 1% Lidocaine w/epi Volume Anesthetic (mLs): 5 Wound explored: Clean, No foreign body removed Irrigated w/ Saline (mLs): 200 Wound Debrided: Moderate Wound Repaired With: Galloway Number of Sutures: 9 Layer Closure?: No Post-procedure wound care: Sterile dressing applied Complications: No Discharge - Discharge Clinical Impression: Closed head injury Qualifiers: Encounter type: initial encounter Qualified Code(s): S09.90XA - Unspecified injury of head, initial encounter Scalp laceration Qualifiers: Encounter type: initial encounter Qualified Code(s): S01.01XA - Laceration without foreign body of scalp, initial encounter Condition: Stable Disposition: HOME, SELF-CARE Instructions: Laceration Care (OM), Head Injury Precautions (OM) Additional Instructions: Please return to the emergency department if you have any worsening, or concern of your symptoms. Please return to the emergency department if you develop chest pain, difficulty breathing, severe abdominal pain, or ongoing vomiting. If prescribed, take all medications as directed. If you have any questions or concerns do not hesitate to return the emergency department for evaluation. Your sophie need to be removed in 7 to 10 days Referrals: ALAYNA LARRY MD [Primary Care Provider] - Follow up in 3-5 days
--- NOTE | 2019-04-28 09:19 | RADIOLOGY REPORT (SQ) ---
EXAM DESCRIPTION: CT HEAD WITHOUT COMPLETED DATE/TIME: 04/28/2019 9:00 am REASON FOR STUDY: trauma COMPARISON: 04/03/2019 TECHNIQUE: Axial images acquired through the brain without intravenous contrast. Images reviewed wi th bone, brain and subdural windows. Additional sagittal and coronal reconstructions were generated. Images stored on PACS. All CT scanners at this facility use dose modulation, iterative reconstruction, and/or weight based d osing when appropriate to reduce radiation dose to as low as reasonably achievable (ALARA). [facility]: Dose Right [facility]: CareDose [facility]: Dose Right [facility]: Teradose 4D [facility]: SupplyBid RADIATION DOSE: CT Rad equipment meets quality standard of care and radiation dose reduction techniq ues were employed. CTDIvol: 53.2 mGy. DLP: 1017 mGy-cm.mGy. LIMITATIONS: None. FINDINGS: VENTRICLES: Prominent. CEREBRUM: No masses. No hemorrhage. No midline shift. Stable encephalomalacia right temporal lobe adjacent to craniotomy and aneurysm clips. No evidence for acute infarction. CEREBELLUM: No masses. No hemorrhage. No alteration of density. No evidence for acute infarction. EXTRAAXIAL SPACES: Age-related involutional change. No fluid collections. No masses. ORBITS AND GLOBE: No intra- or extraconal masses. Normal contour of globe without masses. CALVARIUM: No fracture. PARANASAL SINUSES: No fluid levels. SOFT TISSUES: No mass or hematoma. OTHER: No other significant finding. IMPRESSION: Stable, chronic changes. EVIDENCE OF ACUTE STROKE: NO. TECHNICAL DOCUMENTATION: JOB ID: [id number] Quality ID # [id number]: Final reports with documentation of one or more dose reduction techniques (e.g., Au tomated exposure control, adjustment of the mA and/or kV according to patient size, use of iterative reconstruction technique) 2010 [employer]- All Rights Reserved Reading location - IP/workstation name: [email or web address]
--- NOTE | 2019-04-28 09:19 | RADIOLOGY REPORT (SQ) ---
EXAM DESCRIPTION: CT CERVICAL SPINE WITHOUT COMPLETED DATE/TIME: 04/28/2019 9:00 am REASON FOR STUDY: trauma COMPARISON: None. TECHNIQUE: Axial images acquired through the cervical spine without intravenous contrast. Images re viewed with lung, soft tissue and bone windows. Reconstructed coronal and sagittal MPR images review ed. Images stored on PACS. All CT scanners at this facility use dose modulation, iterative reconstruction, and/or weight based d osing when appropriate to reduce radiation dose to as low as reasonably achievable (ALARA). [facility]: Dose Right [facility]: CareDose [facility]: Dose Right [facility]: Teradose 4D [facility]: [employer] RADIATION DOSE: CT Rad equipment meets quality standard of care and radiation dose reduction techniq ues were employed. CTDIvol: 15.4 mGy. DLP: 263 mGy-cm. mGy. LIMITATIONS: None. FINDINGS: ALIGNMENT: Anatomic. MINERALIZATION: Normal. VERTEBRAL BODIES: No fractures or dislocation. DISCS: Multilevel disc space narrowing with osteophytes. FACETS, LATERAL MASSES, POSTERIOR ELEMENTS: Facet arthropathy. No fractures. No dislocation. No ac sharon findings. HARDWARE: None in the spine. VISUALIZED RIBS: No fractures. LUNG APICES AND SOFT TISSUES: No significant or acute findings. OTHER: No other significant finding. IMPRESSION: CHRONIC DEGENERATIVE CHANGES. NO ACUTE FINDINGS. TECHNICAL DOCUMENTATION: JOB ID: [id number] Quality ID # [id number]: Final reports with documentation of one or more dose reduction techniques (e.g., Au tomated exposure control, adjustment of the mA and/or kV according to patient size, use of iterative reconstruction technique) 2010 [employer]- All Rights Reserved Reading location - IP/workstation name: [email or web address]
== END 2019-04-28 09:35 | disposition home or self-care (01) ==
LOC: ER 08:29
PROC: 0HQ0XZZ Repair Scalp Skin, External Approach (ICD-10-PCS; principal; 2019-04-28)
DX: S09.90XA Unspecified injury of head, initial encounter (principal); S01.01XA Laceration without foreign body of scalp, initial encounter; W18.39XA Other fall on same level, initial encounter; Y93.89 Activity, other specified; Y92.009 Unspecified place in unspecified non-institutional (private) residence as the place of occurrence of the external cause; Y99.9 Unspecified external cause status; Z88.2 Allergy status to sulfonamides; Z88.8 Allergy status to other drugs, medicaments and biological substances; E78.00 Pure hypercholesterolemia, unspecified; I10 Essential (primary) hypertension; Z86.73 Personal history of transient ischemic attack (TIA), and cerebral infarction without residual deficits; K21.9 Gastro-esophageal reflux disease without esophagitis; F32.9 Major depressive disorder, single episode, unspecified; Z90.710 Acquired absence of both cervix and uterus
CPT/HCPCS: 99284; 12002; 70450; 72125; L0120; J3490

== ENCOUNTER 2019-05-12 21:15 | Emergency (ER) | payer MEDICARE, OTHER ==
[2019-05-12 21:53] VITALS: BP 122/60
[2019-05-12 22:33] LABS: ABSOLUTE BASOPHILS # (AUTO) 0.1 10^3/uL (0.0-0.2); ABSOLUTE EOSINOPHILS # (AUTO) 0.2 10^3/uL (0.0-0.6); ABSOLUTE LYMPHOCYTES (AUTO) 1.9 10^3/uL (0.5-4.7); ABSOLUTE MONOCYTES (AUTO) 0.7 10^3/uL (0.1-1.4); ABSOLUTE NEUT (AUTO) 3.7 10^3/uL (1.7-8.2); BASOPHILS % (AUTO) 0.8 % (0-2); EOSINOPHILS % (AUTO) 2.7 % (0-6); HEMATOCRIT 32.5 % (36.0-47.0); LYMPHOCYTES % (AUTO) 28.7 % (13-45); MEAN CORPUSCULAR HEMOGLOBIN 27.6 pg (27.0-33.4); MEAN CORPUSCULAR HGB CONC 33.8 g/dL (32.0-36.0); MEAN CORPUSCULAR VOLUME 82 fl (80-97); PLATELET COUNT 232 10^3/uL (150-450); RED BLOOD COUNT 3.98 10^6/uL (3.72-5.28); RED CELL DISTRIBUTION WIDTH 16.1 % (11.5-14.0); SEGMENTED NEUTROPHILS % (AUTO) 56.8 % (42-78); TOTAL CELLS COUNTED % (AUTO) 100 %; WHITE BLOOD COUNT 6.5 10^3/uL (4.0-10.5)
[2019-05-12 22:46] LABS: ALANINE AMINOTRANSFERASE 16 U/L (9-52); ALBUMIN 3.9 g/dL (3.5-5.0); ALKALINE PHOSPHATASE 76 U/L (38-126); ANION GAP 10 (5-19); ASPARTATE AMINO TRANSFERASE 15 U/L (14-36); BILIRUBIN,DIRECT 0.3 mg/dL (0.0-0.4); BILIRUBIN,TOTAL 0.4 mg/dL (0.2-1.3); BLOOD UREA NITROGEN 33 mg/dL (7-20); CALCIUM 9.5 mg/dL (8.4-10.2); CARBON DIOXIDE 27 mmol/L (22-30); CHLORIDE 102 mmol/L (98-107); GLUCOSE 110 mg/dL (75-110); POTASSIUM 3.8 mmol/L (3.6-5.0); TOTAL PROTEIN 6.3 g/dL (6.3-8.2)
[2019-05-12] MEDS ORDERED: NORMAL SALINE 1000 ML 1,000 ML IV ONE (23:55)
--- NOTE | 2019-05-12 23:57 | ER Document Report ---
ED Medical Screen (RME) - General Chief Complaint: Diarrhea Stated Complaint: DIARRHEA Time Seen by Provider: 05/12/19 23:54 Primary Care Provider: ALAYNA LARRY MD [Primary Care Provider] - Follow up as needed Notes: Patient is an 88-year-old female presents to the emergency department for diarrhea for the last 4 days. Patient states she has had loose stool "over 20 times a day" for the last 4 days. States "it is white and just runs out of me." Patient is currently denying any abdominal pain, vomiting, dysuria. Patient has decreased range of motion of her left lower extremity and left upper extremity secondary due to a CVA 9 years ago. ABDOMEN: Soft, non-tender. Non-distended. Bowel sounds present in all 4 quadrants. I have greeted and performed a rapid initial assessment of this patient. A comprehensive ED assessment and evaluation of the patient, analysis of test results and completion of the medical decision making process will be conducted by additional ED providers. I have specifically instructed the patient or family members with the patient to immediately return to any nursing staff should anything change in the patient's condition or with their chief complaint. This medical record was dictated with voice recognizing software. There may be grammatical, syntax errors that are unintended. TRAVEL OUTSIDE OF THE [place] IN LAST 30 DAYS: No - Related Data Allergies/Adverse Reactions: aspirin [Aspirin] Allergy (Severe, Verified 04/28/19 08:32) Swelling of Throat morphine [Morphine] Allergy (Intermediate, Verified 04/28/19 08:32) Penicillins Allergy (Intermediate, Verified 04/28/19 08:32) fentanyl [Fentanyl] Allergy (Verified 04/28/19 08:32) tachycardia, apnea, "feels like room is closing in" hydromorphone HCl [From Dilaudid] Allergy (Verified 04/28/19 08:32) "feels like throat is closing" Iodinated Contrast- Oral and IV Dye [IV Dye, Iodine Containing] Allergy (Verified 04/28/19 08:32) Sulfa (Sulfonamide Antibiotics) Allergy (Verified 04/28/19 08:32) hydromorphone [From Dilaudid] Adverse Reaction (Verified 04/28/19 08:32) Past Medical History - Past Medical History Cardiac Medical History: Reports: Hx Hypercholesterolemia, Hx Hypertension Denies: Hx Coronary Artery Disease, Hx Heart Attack Pulmonary Medical History: Denies: Hx Asthma, Hx Bronchitis, Hx COPD, Hx Pneumonia Neurological Medical History: Reports: Hx Cerebrovascular Accident - 2010, Hx Seizures Renal/ Medical History: Denies: Hx Peritoneal Dialysis GI Medical History: Reports: Hx Gastroesophageal Reflux Disease Musculoskeltal Medical History: Reports Hx Arthritis Psychiatric Medical History: Reports: Hx Depression Past Surgical History: Reports: Hx Hysterectomy, Hx Neurologic Surgery - Brain aneurysm clip, Hx Orthopedic Surgery - Lt hip fx repair, Hx Thyroid Surgery - partial, Other - Bilobed Right MCA aneurysm clipping in 2009. Denies: Hx Pacemaker - Immunizations Hx Diphtheria, Pertussis, Tetanus Vaccination: No History of Influenza Vaccine for 08/2017 - 01/2018 Season: Yes Influenza Administration Date for 08/2017 - 01/2018 Season: 08/17/18 Physical Exam - Vital signs Vitals: Temp Pulse Resp BP Pulse Ox 98.2 F 77 20 122/60 97 05/12/19 21:49 05/12/19 21:49 05/12/19 21:49 05/12/19 21:49 05/12/19 21:49 Course - Vital Signs Vital signs: Temp Pulse Resp BP Pulse Ox 98.2 F 77 20 122/60 97 05/12/19 21:49 05/12/19 21:49 05/12/19 21:49 05/12/19 21:49 05/12/19 21:49 - Laboratory Result Diagrams: 05/12/19 22:15 05/12/19 22:15 Laboratory results interpreted by me: 05/12/19 05/12/19 22:15 22:15 Hgb 11.0 L Hct 32.5 L RDW 16.1 H BUN 33 H Creatinine 1.82 H Est GFR ( Amer) 32 L Est GFR (Non-Af Amer) 26 L Doctor's Discharge - Discharge Referrals: ALAYNA LARRY MD [Primary Care Provider] - Follow up as needed
[2019-05-13 01:00] LABS: APPEARANCE,URINE SLIGHTLY-CLOUDY; BILIRUBIN,URINE NEGATIVE (NEGATIVE); COLOR,URINE YELLOW; GLUCOSE, URINE NEGATIVE (NEGATIVE); KETONES,URINE NEGATIVE (NEGATIVE); LEUKOCYTE ESTERASE,URINE MODERATE (NEGATIVE); NITRITE,URINE NEGATIVE (NEGATIVE); PROTEIN,URINE NEGATIVE (NEGATIVE); URINE SPECIFIC GRAVITY 1.023
--- NOTE | 2019-05-13 03:38 | ER Document Report ---
ED General - General Chief Complaint: Diarrhea Stated Complaint: DIARRHEA Time Seen by Provider: 05/12/19 23:54 Primary Care Provider: ALAYNA LARRY MD [Primary Care Provider] - Follow up in 3-5 days Notes: Patient is a pleasant 88-year-old female presents with complaint of diarrhea. She was seen here earlier months for diarrhea and was discharged. Said her stools have normalized but the last 3 days she has been having diarrhea. She says that some whitish type stools are loose. It is not watery. No fevers. No abdominal pain. No vomiting. No new medications. No other complaints at this time. No recent antibiotic use other than 4 tablets of an antibiotic after an eye surgery 1 month ago. TRAVEL OUTSIDE OF THE [place] IN LAST 30 DAYS: No - Related Data Allergies/Adverse Reactions: aspirin [Aspirin] Allergy (Severe, Verified 04/28/19 08:32) Swelling of Throat morphine [Morphine] Allergy (Intermediate, Verified 04/28/19 08:32) Penicillins Allergy (Intermediate, Verified 04/28/19 08:32) fentanyl [Fentanyl] Allergy (Verified 04/28/19 08:32) tachycardia, apnea, "feels like room is closing in" hydromorphone HCl [From Dilaudid] Allergy (Verified 04/28/19 08:32) "feels like throat is closing" Iodinated Contrast- Oral and IV Dye [IV Dye, Iodine Containing] Allergy (Verified 04/28/19 08:32) Sulfa (Sulfonamide Antibiotics) Allergy (Verified 04/28/19 08:32) hydromorphone [From Dilaudid] Adverse Reaction (Verified 04/28/19 08:32) Past Medical History - Social History Smoking Status: Never Smoker Frequency of alcohol use: None Drug Abuse: None Family History: Reviewed & Not Pertinent - Past Medical History Cardiac Medical History: Reports: Hx Hypercholesterolemia, Hx Hypertension Denies: Hx Coronary Artery Disease, Hx Heart Attack Pulmonary Medical History: Denies: Hx Asthma, Hx Bronchitis, Hx COPD, Hx Pneumonia Neurological Medical History: Reports: Hx Cerebrovascular Accident - 2010, Hx Seizures Renal/ Medical History: Denies: Hx Peritoneal Dialysis GI Medical History: Reports: Hx Gastroesophageal Reflux Disease Musculoskeletal Medical History: Reports Hx Arthritis Psychiatric Medical History: Reports: Hx Depression Past Surgical History: Reports: Hx Hysterectomy, Hx Neurologic Surgery - Brain aneurysm clip, Hx Orthopedic Surgery - Lt hip fx repair, Hx Thyroid Surgery - partial, Other - Bilobed Right MCA aneurysm clipping in 2010. Denies: Hx Pacemaker - Immunizations Hx Diphtheria, Pertussis, Tetanus Vaccination: No Hx Pneumococcal Vaccination: 11/22/11 Review of Systems - Review of Systems Notes: My Normal Review Basic REVIEW OF SYSTEMS: CONSTITUTIONAL : Denies fever, chills, or sweats. Denies recent illness. RESPIRATORY: Denies cough, cold, or chest congestion. Denies shortness of breath, difficulty breathing, or wheezing. GASTROINTESTINAL: Denies abdominal pain. Denies nausea, vomiting. Some loose white stools. GENITOURINARY: Denies difficulty urinating, painful urination, burning, frequency, or blood in urine. SKIN: Denies rash or skin lesions. NEUROLOGICAL: Denies altered mental status or loss of consciousness. Denies headache. Denies weakness or paralysis or loss of use of either side. Denies problems with gait or speech. Denies sensory or motor loss. ALL OTHER SYSTEMS REVIEWED AND NEGATIVE. Physical Exam - Vital signs Vitals: Temp Pulse Resp BP Pulse Ox 98.2 F 77 20 122/60 97 05/12/19 21:49 05/12/19 21:49 05/12/19 21:49 05/12/19 21:49 05/12/19 21:49 - Notes Notes: General Appearance: Well nourished, alert, cooperative, no acute distress, no obvious discomfort. Well-appearing. Vitals: reviewed, See vital signs table. Eyes: PERRL, EOMI, Conjuctiva clear Mouth: No decreasd moisture Neck: Supple, no neck tenderness, No thyromegaly Lungs: No wheezing, No rales, No rhonci, No accessory muscle use, good air exchange bilaterally. Heart: Normal rate, Regular rythm, No murmur, no rub Abdomen: Normal BS, soft, No rigidity, No abdominal tenderness, No guarding, no rebound, no abdominal masses, no organomegaly Extremities: strength 5/5 in all extremities, good pulses in all extremities, no swelling or tenderness in the extremities, no edema. Skin: warm, dry, appropriate color, no rash Neuro: speech clear, oriented x 3, normal affect, responds appropriately to questions. Course - Re-evaluation Re-evalutation: 05/13/19 03:38 Patient looks well on exam. Her blood work is unremarkable. I have ordered stool culture the patient has not had any diarrhea since she is been here. I will therefore out for an outpatient stool culture to be obtained. Informed patient to return to ER immediately if she has abdominal pain, fevers, vomiting, or worsening diarrhea. Patient does have some renal insufficiency. I did give her some IV fluids. She does have a history of chronic renal insufficiency. She is to follow-up with Dr. Larry to have her blood test rechecked and for reevaluation. Patient and patient's daughter agree with plan and patient will be discharged home. She denies any recent antibiotic use except for taking 4 pills of antibiotic for an eye surgery 1 month ago. I do not suspect C. difficile at this time. Dictation of this chart was performed using voice recognition software; therefore, there may be some unintended grammatical errors. - Vital Signs Vital signs: Temp Pulse Resp BP Pulse Ox 98.2 F 77 20 122/60 97 05/12/19 21:49 05/12/19 21:49 05/12/19 21:49 05/12/19 21:49 05/12/19 21:49 - Laboratory Result Diagrams: 05/12/19 22:15 05/12/19 22:15 Laboratory results interpreted by me: 05/12/19 05/12/19 05/13/19 22:15 22:15 00:08 Hgb 11.0 L Hct 32.5 L RDW 16.1 H BUN 33 H Creatinine 1.82 H Est GFR ( Amer) 32 L Est GFR (Non-Af Amer) 26 L Urine Urobilinogen 2.0 H Ur Leukocyte Esterase MODERATE H Discharge - Discharge Clinical Impression: Renal insufficiency Diarrhea Qualifiers: Diarrhea type: unspecified type Qualified Code(s): R19.7 - Diarrhea, unspecified Condition: Good Disposition: HOME, SELF-CARE Additional Instructions: Your blood tests were unremarkable. I have written a prescription for you to get a stool culture. Please drop off the stool specimen with the prescription for the stool culture to the hospital lab. Please make Dr. Larry aware that you do have these lab test pending. You can also call the culture callback number at [phone] to get your stool culture results. Please return to the ER immediately if you have fevers, vomiting, abdominal pain, blood in your stool, or worsening diarrhea. Forms: Follow-Up Laboratory Testing Referrals: ALAYNA LARRY MD [Primary Care Provider] - Follow up in 3-5 days
== END 2019-05-13 04:15 | disposition home or self-care (01) ==
LOC: ER 21:15
DX: R19.7 Diarrhea, unspecified (principal); N28.9 Disorder of kidney and ureter, unspecified; I10 Essential (primary) hypertension; E78.00 Pure hypercholesterolemia, unspecified; M19.90 Unspecified osteoarthritis, unspecified site; K21.9 Gastro-esophageal reflux disease without esophagitis; F32.9 Major depressive disorder, single episode, unspecified; Z88.0 Allergy status to penicillin; Z88.2 Allergy status to sulfonamides; Z88.8 Allergy status to other drugs, medicaments and biological substances; Z88.6 Allergy status to analgesic agent; Z91.041 Radiographic dye allergy status; Z86.73 Personal history of transient ischemic attack (TIA), and cerebral infarction without residual deficits; Z90.710 Acquired absence of both cervix and uterus
CPT/HCPCS: 99284; 96360; 36415; 85025; 80053; 81001; J7030

== ENCOUNTER 2019-06-12 18:00 | Emergency (ER) | payer MEDICARE, OTHER ==
--- NOTE | 2019-06-12 19:01 | ER Document Report ---
ED Medical Screen (RME) - General Chief Complaint: Leg Swelling Stated Complaint: SWOLLEN FEET Time Seen by Provider: 06/12/19 18:58 Primary Care Provider: ALAYNA LARRY MD [Primary Care Provider] - Follow up as needed Notes: Patient is an 88-year-old female who presents to the emergency department with bilateral lower extremity swelling. She has had this problem for the past few months. She was seen by her primary care provider and family who is at bedside stated, "nothing has been done for her swelling in her legs." Patient denies any shortness of breath, difficulty breathing, or any other symptoms. Exam: 2+ pitting edema noted to bilateral lower extremities. I have greeted and performed a rapid initial assessment of this patient. A comprehensive ED assessment and evaluation of the patient, analysis of test results and completion of medical decision making process will be conducted by an additional ED providers. TRAVEL OUTSIDE OF THE [place] IN LAST 30 DAYS: No - Related Data Allergies/Adverse Reactions: aspirin [Aspirin] Allergy (Severe, Verified 06/12/19 18:02) Swelling of Throat morphine [Morphine] Allergy (Intermediate, Verified 06/12/19 18:02) Penicillins Allergy (Intermediate, Verified 06/12/19 18:02) fentanyl [Fentanyl] Allergy (Verified 06/12/19 18:02) tachycardia, apnea, "feels like room is closing in" hydromorphone HCl [From Dilaudid] Allergy (Verified 06/12/19 18:02) "feels like throat is closing" Iodinated Contrast- Oral and IV Dye [IV Dye, Iodine Containing] Allergy (Verified 06/12/19 18:02) Sulfa (Sulfonamide Antibiotics) Allergy (Verified 06/12/19 18:02) hydromorphone [From Dilaudid] Adverse Reaction (Verified 06/12/19 18:02) Past Medical History - Social History Chew tobacco use (# tins/day): No Frequency of alcohol use: None Drug Abuse: None - Past Medical History Cardiac Medical History: Reports: Hx Hypercholesterolemia, Hx Hypertension Denies: Hx Coronary Artery Disease, Hx Heart Attack Pulmonary Medical History: Denies: Hx Asthma, Hx Bronchitis, Hx COPD, Hx Pneumonia Neurological Medical History: Reports: Hx Cerebrovascular Accident - 2010, Hx Seizures Renal/ Medical History: Denies: Hx Peritoneal Dialysis GI Medical History: Reports: Hx Gastroesophageal Reflux Disease Musculoskeltal Medical History: Reports Hx Arthritis Psychiatric Medical History: Reports: Hx Depression Past Surgical History: Reports: Hx Hysterectomy, Hx Neurologic Surgery - Brain aneurysm clip, Hx Orthopedic Surgery - Lt hip fx repair, Hx Thyroid Surgery - partial, Other - Bilobed Right MCA aneurysm clipping in 2009. Denies: Hx Pacemaker - Immunizations Hx Diphtheria, Pertussis, Tetanus Vaccination: No History of Influenza Vaccine for 08/2017 - 01/2018 Season: Yes Influenza Administration Date for 08/2017 - 01/2018 Season: 08/17/18 Physical Exam - Vital signs Vitals: Temp Pulse Resp BP Pulse Ox 98.7 F 73 20 147/79 H 95 06/12/19 18:13 06/12/19 18:13 06/12/19 18:13 06/12/19 18:13 06/12/19 18:13 Course - Vital Signs Vital signs: Temp Pulse Resp BP Pulse Ox 98.7 F 73 20 147/79 H 95 06/12/19 18:13 06/12/19 18:13 06/12/19 18:13 06/12/19 18:13 06/12/19 18:13 Doctor's Discharge - Discharge Referrals: ALAYNA LARRY MD [Primary Care Provider] - Follow up as needed
[2019-06-12 19:18] LABS: ABSOLUTE BASOPHILS # (AUTO) 0.1 10^3/uL (0.0-0.2); TOTAL CELLS COUNTED % (AUTO) 100 %; WHITE BLOOD COUNT 6.6 10^3/uL (4.0-10.5)
[2019-06-12 19:22] LABS: ABSOLUTE EOSINOPHILS # (AUTO) 0.2 10^3/uL (0.0-0.6); ABSOLUTE LYMPHOCYTES (AUTO) 1.8 10^3/uL (0.5-4.7); ABSOLUTE MONOCYTES (AUTO) 0.7 10^3/uL (0.1-1.4); ABSOLUTE NEUT (AUTO) 3.9 10^3/uL (1.7-8.2); BASOPHILS % (AUTO) 0.9 % (0-2); EOSINOPHILS % (AUTO) 2.8 % (0-6); HEMATOCRIT 32.4 % (36.0-47.0); HEMOGLOBIN 10.9 g/dL (12.0-15.5); LYMPHOCYTES % (AUTO) 27.8 % (13-45); MEAN CORPUSCULAR HEMOGLOBIN 27.8 pg (27.0-33.4); MEAN CORPUSCULAR HGB CONC 33.7 g/dL (32.0-36.0); MEAN CORPUSCULAR VOLUME 83 fl (80-97); MONOCYTES % (AUTO) 10.2 % (3-13); PLATELET COUNT 241 10^3/uL (150-450); RED BLOOD COUNT 3.92 10^6/uL (3.72-5.28); SEGMENTED NEUTROPHILS % (AUTO) 58.3 % (42-78)
--- NOTE | 2019-06-12 19:27 | ER Document Report ---
ED General - General Chief Complaint: Leg Swelling Stated Complaint: SWOLLEN FEET Time Seen by Provider: 06/12/19 18:58 Primary Care Provider: ALAYNA LARRY MD [Primary Care Provider] - Follow up in 3-5 days Notes: Patient is a 88-year-old female that presents to the emergency department for chief complaint of lower extremity swelling and skin rash. Patient states that her legs have been swollen for the past few weeks, more so than usual, and her daughters reporting that she is had a rash on her legs for several weeks as well, they have seen multiple physicians for this including her primary care, they have not received answers for the rash, including a compensator worker. She denies feeling short of breath, denies any chest pain, nausea, vomiting or abdominal pain. Denies any numbness, tingling or weakness, denies any other complaints at this time. She does not take a water pill currently but she does take blood pressure for high blood pressure. Denies any significant kidney disease, or history of heart failure. Past Medical History: Hypertension, hypothyroidism Past Surgical History: Abdominal surgery Social History: Remote smoking history, denies alcohol or drug use. Family History: Reviewed and noncontributory for presenting illness Allergies: Reviewed, see documented allergy list. REVIEW OF SYSTEMS: Other than noted above, the 12 point review of systems was reviewed with the patient and were negative, all pertinent findings are included in the HPI. PHYSICAL EXAMINATION: Vital signs reviewed, nursing noted reviewed. GENERAL: Elderly female, no acute distress. HEAD: Atraumatic, normocephalic. EYES: Eyes appear normal, extraocular movements intact, sclera anicteric, conjunctiva are normal. ENT: nares patent, oropharynx clear without exudates. Moist mucous membranes. NECK: Normal range of motion, supple without lymphadenopathy LUNGS: Breath sounds clear to auscultation bilaterally and equal. No wheezes rales or rhonchi. HEART: Regular rate and rhythm without murmurs ABDOMEN: Soft, nontender, normoactive bowel sounds. No rebound, guarding, or rigidity. No masses appreciated. EXTREMITIES: Nontender, good range of motion, 1+ edema to the lower extremities bilaterally, to the proximal tibias NEUROLOGICAL: No focal neurological deficits. Moves all extremities sp ontaneously Motor and sensory grossly intact on exam. PSYCH: Normal mood, normal affect. SKIN: Warm, Dry, normal turgor, patient has some hyperkeratotic lesions to the lower extremities, likely seborrheic keratoses, however it is possible could be a fungal infection as well TRAVEL OUTSIDE OF THE [place] IN LAST 30 DAYS: No - Related Data Allergies/Adverse Reactions: aspirin [Aspirin] Allergy (Severe, Verified 06/12/19 18:02) Swelling of Throat morphine [Morphine] Allergy (Intermediate, Verified 06/12/19 18:02) Penicillins Allergy (Intermediate, Verified 06/12/19 18:02) fentanyl [Fentanyl] Allergy (Verified 06/12/19 18:02) tachycardia, apnea, "feels like room is closing in" hydromorphone HCl [From Dilaudid] Allergy (Verified 06/12/19 18:02) "feels like throat is closing" Iodinated Contrast- Oral and IV Dye [IV Dye, Iodine Containing] Allergy (Verified 06/12/19 18:02) Sulfa (Sulfonamide Antibiotics) Allergy (Verified 06/12/19 18:02) hydromorphone [From Dilaudid] Adverse Reaction (Verified 06/12/19 18:02) Past Medical History - Social History Smoking Status: Unknown if Ever Smoked Chew tobacco use (# tins/day): No Frequency of alcohol use: None Drug Abuse: None Family History: Reviewed & Not Pertinent Patient has suicidal ideation: No Patient has homicidal ideation: No - Past Medical History Cardiac Medical History: Reports: Hx Hypercholesterolemia, Hx Hypertension Denies: Hx Coronary Artery Disease, Hx Heart Attack Pulmonary Medical History: Denies: Hx Asthma, Hx Bronchitis, Hx COPD, Hx Pneumonia Neurological Medical History: Reports: Hx Cerebrovascular Accident - 2009, Hx Seizures Renal/ Medical History: Denies: Hx Peritoneal Dialysis GI Medical History: Reports: Hx Gastroesophageal Reflux Disease Musculoskeletal Medical History: Reports Hx Arthritis Psychiatric Medical History: Reports: Hx Depression Past Surgical History: Reports: Hx Hysterectomy, Hx Neurologic Surgery - Brain aneurysm clip, Hx Orthopedic Surgery - Lt hip fx repair, Hx Thyroid Surgery - partial, Other - Bilobed Right MCA aneurysm clipping in 2009. Denies: Hx Pacemaker - Immunizations Hx Diphtheria, Pertussis, Tetanus Vaccination: No Hx Pneumococcal Vaccination: 11/22/11 Physical Exam - Vital signs Vitals: Temp Pulse Resp BP Pulse Ox 98.7 F 73 20 147/79 H 95 06/12/19 18:13 06/12/19 18:13 06/12/19 18:13 06/12/19 18:13 06/12/19 18:13 Course - Re-evaluation Re-evalutation: Patient seen and examined vital signs reviewed. Laboratory data and/or imaging were ordered as appropriate for the patient's presenting symptoms and complaint, with consideration of any critical or life threatening conditions that may be associated with their obtained history and exam as noted above. Patient was treated with IV Lasix 20 mg Results were reviewed when available and demonstrated essentially unremarkable blood work, mild renal impairment, likely chronic in this patient, her clinical exam to ensure to mild peripheral edema, otherwise she appears clinically stable. Evaluation was most consistent with peripheral edema, and skin rash, possible fungal, will give her prescription for topical Lotrimin for 10 days, advised follow-up with her primary care. Results were discussed with the patient at this point, after careful consideration I feel that that patient can be discharged from the emergency department, the patient was educated treatments and reasons to return to the emergency department based on their presumed diagnosis as noted above, they were advised to followup with a primary care physician in 2-3 days. Patient was agreeable to plan of care. *Note is created using voice recognition software and may contain spelling, syntax or grammatical errors. Laboratory 06/12/19 06/12/19 06/12/19 19:10 19:10 19:10 WBC 6.6 RBC 3.92 Hgb 10.9 L Hct 32.4 L MCV 83 MCH 27.8 MCHC 33.7 RDW 16.0 H Plt Count 241 Seg Neutrophils % 58.3 Lymphocytes % 27.8 Monocytes % 10.2 Eosinophils % 2.8 Basophils % 0.9 Absolute Neutrophils 3.9 Absolute Lymphocytes 1.8 Absolute Monocytes 0.7 Absolute Eosinophils 0.2 Absolute Basophils 0.1 Sodium 138.8 Potassium 3.9 Chloride 103 Carbon Dioxide 26 Anion Gap 10 BUN 27 H Creatinine 1.28 H Est GFR ( Amer) 48 L Est GFR (Non-Af Amer) 39 L Glucose 89 Calcium 9.8 Total Bilirubin 0.4 Direct Bilirubin 0.3 Neonat Total Bilirubin Not Reportable Neonat Direct Bilirubin Not Reportable Neonat Indirect Bili Not Reportable AST 17 ALT 16 Alkaline Phosphatase 79 NT-Pro-B Natriuret Pep 738 H Total Protein 6.6 Albumin 4.1 - Vital Signs Vital signs: Temp Pulse Resp BP Pulse Ox 98.4 F 73 14 180/92 H 97 06/12/19 20:01 06/12/19 18:13 06/12/19 20:01 06/12/19 20:01 06/12/19 20:01 - Laboratory Result Diagrams: 06/12/19 19:10 06/12/19 19:10 Laboratory results interpreted by me: 06/12/19 06/12/19 06/12/19 19:10 19:10 19:10 Hgb 10.9 L Hct 32.4 L RDW 16.0 H BUN 27 H Creatinine 1.28 H Est GFR ( Amer) 48 L Est GFR (Non-Af Amer) 39 L NT-Pro-B Natriuret Pep 738 H Discharge - Discharge Clinical Impression: Peripheral edema, Skin rash Condition: Stable Disposition: HOME, SELF-CARE Instructions: Edema, Peripheral ([facility]) Additional Instructions: Please apply the topical antifungal cream, for the next 10 days twice daily, and follow-up with Dr. Larry in the office. Prescriptions: Butenafine HCl [Lotrimin Ultra 1% Cream] 1 applic TP BID 10 Days #1 tube Referrals: ALAYNA LARRY MD [Primary Care Provider] - Follow up in 3-5 days
[2019-06-12 19:36] LABS: ALANINE AMINOTRANSFERASE 16 U/L (9-52); ALBUMIN 4.1 g/dL (3.5-5.0); ALKALINE PHOSPHATASE 79 U/L (38-126); ANION GAP 10 (5-19); ASPARTATE AMINO TRANSFERASE 17 U/L (14-36); BILIRUBIN,DIRECT 0.3 mg/dL (0.0-0.4); BILIRUBIN,TOTAL 0.4 mg/dL (0.2-1.3); BLOOD UREA NITROGEN 27 mg/dL (7-20); CALCIUM 9.8 mg/dL (8.4-10.2); CARBON DIOXIDE 26 mmol/L (22-30); CHLORIDE 103 mmol/L (98-107); GLUCOSE 89 mg/dL (75-110); POTASSIUM 3.9 mmol/L (3.6-5.0); TOTAL PROTEIN 6.6 g/dL (6.3-8.2)
[2019-06-12] MEDS ORDERED: FUROSEMIDE INJ/PF 20 MG/2 ML SDV IV ONE (20:12)
[2019-06-12 20:29] VITALS: BP 180/92
== END 2019-06-12 20:41 | disposition home or self-care (01) ==
LOC: ER 18:00
DX: R60.0 Localized edema (principal); R21 Rash and other nonspecific skin eruption; M79.89 Other specified soft tissue disorders; I10 Essential (primary) hypertension
CPT/HCPCS: 99283; 96374; 36415; 85025; 80053; 83880; J1940

== ENCOUNTER 2019-06-13 09:52 | Emergency (ER) | payer MEDICARE, OTHER ==
[2019-06-13 11:21] LABS: ABSOLUTE EOSINOPHILS # (AUTO) 0.1 10^3/uL (0.0-0.6); ABSOLUTE LYMPHOCYTES (AUTO) 1.1 10^3/uL (0.5-4.7); ABSOLUTE MONOCYTES (AUTO) 0.5 10^3/uL (0.1-1.4); ABSOLUTE NEUT (AUTO) 4.4 10^3/uL (1.7-8.2); BASOPHILS % (AUTO) 0.7 % (0-2); EOSINOPHILS % (AUTO) 1.7 % (0-6); HEMATOCRIT 30.3 % (36.0-47.0); HEMOGLOBIN 10.5 g/dL (12.0-15.5); LYMPHOCYTES % (AUTO) 17.8 % (13-45); MEAN CORPUSCULAR HEMOGLOBIN 28.4 pg (27.0-33.4); MEAN CORPUSCULAR HGB CONC 34.6 g/dL (32.0-36.0); MEAN CORPUSCULAR VOLUME 82 fl (80-97); MONOCYTES % (AUTO) 8.4 % (3-13); PLATELET COUNT 223 10^3/uL (150-450); RED CELL DISTRIBUTION WIDTH 15.8 % (11.5-14.0); SEGMENTED NEUTROPHILS % (AUTO) 71.4 % (42-78); TOTAL CELLS COUNTED % (AUTO) 100 %; WHITE BLOOD COUNT 6.1 10^3/uL (4.0-10.5)
[2019-06-13 11:42] LABS: ALANINE AMINOTRANSFERASE 13 U/L (9-52); ALBUMIN 3.7 g/dL (3.5-5.0); ALKALINE PHOSPHATASE 71 U/L (38-126); ANION GAP 8 (5-19); ASPARTATE AMINO TRANSFERASE 16 U/L (14-36); BILIRUBIN,DIRECT 0.2 mg/dL (0.0-0.4); BILIRUBIN,TOTAL 0.4 mg/dL (0.2-1.3); BLOOD UREA NITROGEN 24 mg/dL (7-20); CALCIUM 9.4 mg/dL (8.4-10.2); CARBON DIOXIDE 31 mmol/L (22-30); CHLORIDE 100 mmol/L (98-107); GLUCOSE 98 mg/dL (75-110); POTASSIUM 3.8 mmol/L (3.6-5.0); TOTAL PROTEIN 6.1 g/dL (6.3-8.2)
[2019-06-13 11:49] LABS: APPEARANCE,URINE CLEAR; BILIRUBIN,URINE NEGATIVE (NEGATIVE); COLOR,URINE YELLOW; GLUCOSE, URINE NEGATIVE (NEGATIVE); KETONES,URINE NEGATIVE (NEGATIVE); LEUKOCYTE ESTERASE,URINE TRACE (NEGATIVE); NITRITE,URINE NEGATIVE (NEGATIVE); PROTEIN,URINE NEGATIVE (NEGATIVE); URINE SPECIFIC GRAVITY 1.011; UROBILINOGEN,URINE NEGATIVE mg/dL (<2.0)
--- NOTE | 2019-06-13 12:06 | RADIOLOGY REPORT (SQ) ---
EXAM DESCRIPTION: HIP RIGHT AP/LATERAL COMPLETED DATE/TIME: 06/13/2019 11:56 am REASON FOR STUDY: pain COMPARISON: None. NUMBER OF VIEWS: Two views right hip LIMITATIONS: None. FINDINGS: Osteopenic. Degenerative narrowing and spurring and sclerosis. No fracture or bone lesio n appreciated. OTHER: No other significant finding. IMPRESSION: No acute radiographic abnormality. JULIO. TECHNICAL DOCUMENTATION: JOB ID: [id number] Reading location - IP/workstation name: [email or web address]
--- NOTE | 2019-06-13 12:11 | RADIOLOGY REPORT (SQ) ---
EXAM DESCRIPTION: CT HEAD WITHOUT COMPLETED DATE/TIME: 06/13/2019 12:00 pm REASON FOR STUDY: weakness COMPARISON: 04/28/2019 TECHNIQUE: Axial images acquired through the brain without intravenous contrast. Images reviewed wi th bone, brain and subdural windows. Additional sagittal and coronal reconstructions were generated. Images stored on PACS. All CT scanners at this facility use dose modulation, iterative reconstruction, and/or weight based d osing when appropriate to reduce radiation dose to as low as reasonably achievable (ALARA). [facility]: Dose Right [facility]: CareDose [facility]: Dose Right [facility]: Teradose 4D [facility]: [employer] RADIATION DOSE: CT Rad equipment meets quality standard of care and radiation dose reduction techniq ues were employed. CTDIvol: 53.2 mGy. DLP: 964 mGy-cm. mGy. LIMITATIONS: None. FINDINGS: VENTRICLES: Left Normal size and contour. CEREBRUM: No masses. No hemorrhage. No midline shift. No evidence for acute infarction. Normal gra y/white matter differentiation. No areas of low density in the white matter. Right temporoparietal s urgical changes with focal encephalomalacia. Extends to generalize right MCA distribution infarct. Dilatation of the external ventricle. CEREBELLUM: No masses. No hemorrhage. No alteration of density. No evidence for acute infarction. EXTRAAXIAL SPACES: No fluid collections. No masses. ORBITS AND GLOBE: No intra- or extraconal masses. Normal contour of globe without masses. CALVARIUM: Surgical changes on the right. PARANASAL SINUSES: No fluid or mucosal thickening. SOFT TISSUES: No mass or hematoma. OTHER: No other significant finding. IMPRESSION: Postsurgical changes on the right. No acute intracranial process. EVIDENCE OF ACUTE STROKE: NO. COMMENT: Quality ID # [id number]: Final reports with documentation of one or more dose reduction techniques (e.g., Automated exposure control, adjustment of the mA and/or kV according to patient size, use of iterative reconstruction technique) TECHNICAL DOCUMENTATION: JOB ID: [id number] [employer]- All Rights Reserved Reading location - IP/workstation name: [email or web address]
--- NOTE | 2019-06-13 13:59 | ER Document Report ---
ED General - General Chief Complaint: General Weakness Stated Complaint: WEAKNESS Time Seen by Provider: 06/13/19 10:25 Primary Care Provider: ALAYNA LARRY MD [Primary Care Provider] - Follow up as needed TRAVEL OUTSIDE OF THE [place] IN LAST 30 DAYS: No - HPI Notes: Patient is an 88-year-old female who presents to the emergency department for evaluation. She is brought in by her caregiver and her daughter. The patient was actually seen here yesterday. Patient's daughter states "there is something wrong, she needs admitted until they figured out." Evidently she is been getting progressively weaker over the last several weeks. She has a history of CVA with left-sided weakness. She usually walks with a cane. Today she was walking in her legs went out from underneath her. She was slowly lowered to the ground. She did not hit her head or lose consciousness. No neck or back pain. She has some pain in her right hip, but is unable to tell me the chronicity of this pain. She denies any numbness or tingling. Patient's daughter believes that her left-sided facial droop might be worsened from her baseline. Taking all of her medications as prescribed. - Related Data Allergies/Adverse Reactions: aspirin [Aspirin] Allergy (Severe, Verified 06/12/19 18:02) Swelling of Throat morphine [Morphine] Allergy (Intermediate, Verified 06/12/19 18:02) Penicillins Allergy (Intermediate, Verified 06/12/19 18:02) fentanyl [Fentanyl] Allergy (Verified 06/12/19 18:02) tachycardia, apnea, "feels like room is closing in" hydromorphone HCl [From Dilaudid] Allergy (Verified 06/12/19 18:02) "feels like throat is closing" Iodinated Contrast- Oral and IV Dye [IV Dye, Iodine Containing] Allergy (Verified 06/12/19 18:02) Sulfa (Sulfonamide Antibiotics) Allergy (Verified 06/12/19 18:02) hydromorphone [From Dilaudid] Adverse Reaction (Verified 06/12/19 18:02) Past Medical History - General Information source: Patient, Relative - Social History Smoking Status: Never Smoker Frequency of alcohol use: None Drug Abuse: None Family History: Reviewed & Not Pertinent Patient has suicidal ideation: No Patient has homicidal ideation: No - Past Medical History Cardiac Medical History: Reports: Hx Hypercholesterolemia, Hx Hypertension Denies: Hx Coronary Artery Disease, Hx Heart Attack Pulmonary Medical History: Denies: Hx Asthma, Hx Bronchitis, Hx COPD, Hx Pneumonia Neurological Medical History: Reports: Hx Cerebrovascular Accident - 2010, Hx Seizures - Has not had a seizure in several years Renal/ Medical History: Reports: Other - CKD. Denies: Hx Peritoneal Dialysis GI Medical History: Reports: Hx Gastroesophageal Reflux Disease Musculoskeletal Medical History: Reports Hx Arthritis Psychiatric Medical History: Reports: Hx Depression Past Surgical History: Reports: Hx Hysterectomy, Hx Neurologic Surgery - Brain aneurysm clip, Hx Orthopedic Surgery - Lt hip fx repair, Hx Thyroid Surgery - partial, Other - Bilobed Right MCA aneurysm clipping in 2009. Denies: Hx Pacemaker - Immunizations Hx Diphtheria, Pertussis, Tetanus Vaccination: No Hx Pneumococcal Vaccination: 11/22/11 Review of Systems - Review of Systems Constitutional: See HPI EENT: No symptoms reported Cardiovascular: No symptoms reported Respiratory: No symptoms reported Gastrointestinal: No symptoms reported Genitourinary: See HPI Female Genitourinary: No symptoms reported Musculoskeletal: No symptoms reported Skin: No symptoms reported Neurological/Psychological: No symptoms reported Physical Exam - Vital signs Vitals: Resp Pulse Ox 10 L 99 06/13/19 10:00 06/13/19 10:00 - Notes Notes: Vital signs reviewed, please refer to chart. Head is normocephalic, atraumatic. Right pupil is round and reactive. Left pupil is misshapen. Neck is supple without meningismus. Heart is regular rate and rhythm. Lungs are clear to auscultation bilaterally. Abdomen is soft, nontender, normoactive bowel sounds throughout. Extremities without cyanosis, clubbing. Posterior calves are nontender. Peripheral pulses are equal. Skin is warm and dry. Examination of the right lower extremity yields no obvious deformity. She has minimal tenderness over the right greater trochanter. No inguinal tenderness. She has no range of motion pain with internal and external rotation and flexion of the hip. Patient is awake and alert, oriented to person and place, disoriented to time. She has asymmetry of the left nasolabial fold with mild drooping of the mouth. She has left upper extremity paralysis with contracture. She has 4+ weakness of the left leg. Unable to assess for pronator drift secondary to left upper extremity deficit, which is chronic. Course - Re-evaluation Re-evalutation: 06/13/19 14:13 Patient is an 88-year-old female who presents emergency department for evaluation. I do not see any significant differences or focal weakness on her exam outside of what appears to be clearly chronic. Laboratory investigations revealed CKD, but she is near her baseline. No significant electrolyte abnormalities were noted. CT scan was performed and showed chronic encephalomalacia, but no acute bleeding. At this point I do strongly suspect simple deconditioning. We discussed the possibility that the patient might require more intensive care than able to be provided in her home. She needs to see her primary care doctor. They need to evaluate as to whether or not she qualifies for any further PT or OT. Both patient and daughter understand, and the patient was discharged. - Vital Signs Vital signs: Temp Pulse Resp BP Pulse Ox 98.3 F 15 154/83 H 99 06/13/19 10:04 06/13/19 13:01 06/13/19 13:01 06/13/19 13:01 - Laboratory Result Diagrams: 06/13/19 10:59 06/13/19 10:59 Laboratory results interpreted by me: 06/13/19 06/13/19 06/13/19 10:59 10:59 10:59 RBC 3.70 L Hgb 10.5 L Hct 30.3 L RDW 15.8 H Carbon Dioxide 31 H BUN 24 H Creatinine 1.43 H Est GFR ( Amer) 42 L Est GFR (Non-Af Amer) 35 L Total Protein 6.1 L Ur Leukocyte Esterase TRACE H - Diagnostic Test Radiology reviewed: Reports reviewed Radiology results interpreted by me: 06/13/19 14:[address] 06/13/19 11:41 IMPRESSION: Postsurgical changes on the right. No acute intracranial process. EVIDENCE OF ACUTE STROKE: NO. Hip/Pelvis X-Ray 06/13/19 11:41 IMPRESSION: No acute radiographic abnormality. DJD. - EKG Interpretation by Me Additional EKG results interpreted by me: 06/13/19 14:14 Sinus mechanism with a rate of 73 bpm. First-degree AV block. IVCD. Nonspecific ST changes, but no acute changes concerning for ischemia or infarction. No change from prior study. Discharge - Discharge Clinical Impression: Generalized weakness Condition: Stable Disposition: HOME, SELF-CARE Instructions: Weakness ([facility]) Additional Instructions: No clear cause was found for your weakness today. You need to follow-up with primary care this week. You should discuss further physical and occupational therapy. You should also discuss the possibility of requiring more intensive care than is possible at home. Return to the emergency department with worsening or new concerning symptoms of any sort. Referrals: ALAYNA LARRY MD [Primary Care Provider] - Follow up as needed
[2019-06-13 14:10] VITALS: BP 154/86
--- NOTE | 2019-06-13 21:57 | EKG REPORT ---
SEVERITY:- BORDERLINE ECG - SINUS RHYTHM VENTRICULAR PREMATURE COMPLEX BORDERLINE T WAVE ABNORMALITIES : Confirmed by: Heather Lucero 13-Jun-2019 21:56:14
== END 2019-06-13 14:34 | disposition home or self-care (01) ==
LOC: ER 09:52
DX: R53.1 Weakness (principal); M25.551 Pain in right hip; I44.0 Atrioventricular block, first degree; I12.9 Hypertensive chronic kidney disease with stage 1 through stage 4 chronic kidney disease, or unspecified chronic kidney disease; N18.9 Chronic kidney disease, unspecified; G93.89 Other specified disorders of brain; I69.354 Hemiplegia and hemiparesis following cerebral infarction affecting left non-dominant side; Z88.8 Allergy status to other drugs, medicaments and biological substances; Z88.5 Allergy status to narcotic agent; Z88.0 Allergy status to penicillin; Z88.2 Allergy status to sulfonamides; Z91.041 Radiographic dye allergy status
CPT/HCPCS: 36415; 70450; 80053; 81001; 85025; 93005; 93010; 99285

== ENCOUNTER 2019-07-09 09:40 | Emergency (ER) | payer MEDICARE, OTHER ==
[2019-07-09] MEDS ORDERED: NORMAL SALINE 500 ML IV ONE (10:12)
--- NOTE | 2019-07-09 10:16 | ER Document Report ---
ED General - General Chief Complaint: General Weakness Stated Complaint: WEAKNESS Time Seen by Provider: 07/09/19 10:00 Primary Care Provider: ALYANA LARRY MD [Primary Care Provider] - Follow up as needed TRAVEL OUTSIDE OF THE [place] IN LAST 30 DAYS: No - HPI Notes: Presents from intermediate for concern of transient hypotension and weakness. Patient lives at [facility]. Hx of vascular dementia. Per intermediate, pt was not feeling well, had a headache. BP was taken, BP was 81/58, HR of 89. No recent fevers illnesses, V/D. Patient does states she has mild burning with urination - Related Data Allergies/Adverse Reactions: aspirin [Aspirin] Allergy (Severe, Verified 06/12/19 18:02) Swelling of Throat morphine [Morphine] Allergy (Intermediate, Verified 06/12/19 18:02) Penicillins Allergy (Intermediate, Verified 06/12/19 18:02) fentanyl [Fentanyl] Allergy (Verified 06/12/19 18:02) tachycardia, apnea, "feels like room is closing in" hydromorphone HCl [From Dilaudid] Allergy (Verified 06/12/19 18:02) "feels like throat is closing" Iodinated Contrast Media [IV Dye, Iodine Containing] Allergy (Verified 06/12/19 18:02) Sulfa (Sulfonamide Antibiotics) Allergy (Verified 06/12/19 18:02) hydromorphone [From Dilaudid] Adverse Reaction (Verified 06/12/19 18:02) Past Medical History - Social History Smoking Status: Never Smoker Family History: Reviewed & Not Pertinent - Past Medical History Cardiac Medical History: Reports: Hx Hypercholesterolemia, Hx Hypertension Denies: Hx Coronary Artery Disease, Hx Heart Attack Pulmonary Medical History: Denies: Hx Asthma, Hx Bronchitis, Hx COPD, Hx Pneumonia Neurological Medical History: Reports: Hx Cerebrovascular Accident - 2009, Hx Seizures - Has not had a seizure in several years Renal/ Medical History: Denies: Hx Peritoneal Dialysis GI Medical History: Reports: Hx Gastroesophageal Reflux Disease Musculoskeletal Medical History: Reports Hx Arthritis Psychiatric Medical History: Reports: Hx Depression Past Surgical History: Reports: Hx Hysterectomy, Hx Neurologic Surgery - Brain aneurysm clip, Hx Orthopedic Surgery - Lt hip fx repair, Hx Thyroid Surgery - partial, Other - Bilobed Right MCA aneurysm clipping in 2009. Denies: Hx Pacemaker - Immunizations Hx Diphtheria, Pertussis, Tetanus Vaccination: No Hx Pneumococcal Vaccination: 11/22/11 Review of Systems - Review of Systems Constitutional: No symptoms reported EENT: See HPI Cardiovascular: No symptoms reported Respiratory: No symptoms reported Gastrointestinal: No symptoms reported Genitourinary: No symptoms reported Female Genitourinary: No symptoms reported Musculoskeletal: No symptoms reported Skin: No symptoms reported Hematologic/Lymphatic: No symptoms reported Neurological/Psychological: No symptoms reported Physical Exam - Vital signs Vitals: Temp Pulse Resp BP Pulse Ox 98.1 F 81 16 127/50 H 98 07/09/19 09:42 07/09/19 09:42 07/09/19 09:42 07/09/19 09:42 07/09/19 09:42 - General General appearance: Appears well, Alert - HEENT Head: Normocephalic, Atraumatic Eyes: Normal - Mucous membranes mild dry - Respiratory Respiratory status: No respiratory distress Chest status: Nontender Breath sounds: Normal - Cardiovascular Rhythm: Regular Heart sounds: Normal auscultation Murmur: No - Abdominal Inspection: Normal Distension: No distension - Extremities General upper extremity: Normal inspection, Other - Partial paralysis left upper extremity previous stroke General lower extremity: Normal inspection - Neurological Neuro grossly intact: Yes Cognition: Other - Oriented to time person and place Course - Re-evaluation Re-evalutation: 07/09/19 12:49 She maintained stable blood pressures with x-ray urine and labs within normal limits are nonsignificant. Patient denies any chest pain or symptoms at this time will be discharged. Return precautions provided - Vital Signs Vital signs: Temp Pulse Resp BP Pulse Ox 98.1 F 81 17 133/47 H 99 07/09/19 09:42 07/09/19 09:42 07/09/19 13:01 07/09/19 13:00 07/09/19 13:01 - Laboratory Result Diagrams: 07/09/19 11:19 07/09/19 11:19 Laboratory results interpreted by me: 07/09/19 07/09/19 07/09/19 11:19 11:19 11:19 Hgb 11.0 L Hct 31.8 L RDW 15.0 H PT 15.6 H Sodium 136.9 L Potassium 3.5 L Est GFR ( Amer) 51 L Est GFR (MDRD) Non-Af 42 L Total Protein 6.2 L Urine Ketones 07/09/19 11:19 Hgb Hct RDW PT Sodium Potassium Est GFR ( Amer) Est GFR (MDRD) Non-Af Total Protein Urine Ketones TRACE H Discharge - Discharge Clinical Impression: Well adult health check Condition: Good Disposition: HOME, SELF-CARE Additional Instructions: Chest x-ray, urine, and labs were taken today. EKG and measure of heart damage was also taken. You are found to have no acute abnormalities. Return to emergency department for any concerns Referrals: ALAYNA LARRY MD [Primary Care Provider] - Follow up as needed
--- NOTE | 2019-07-09 10:34 | RADIOLOGY REPORT (SQ) ---
EXAM DESCRIPTION: CHEST SINGLE VIEW COMPLETED DATE/TIME: 07/09/2019 10:27 am REASON FOR STUDY: cough COMPARISON: 04/03/2019 NUMBER OF VIEWS: One view. TECHNIQUE: Single frontal radiographic image of the chest acquired. LIMITATIONS: None. FINDINGS: LUNGS AND PLEURA: Stable appearance. MEDIASTINUM AND HILAR STRUCTURES: Stable heart size and mediastinal structures. HEART AND VASCULAR STRUCTURES: Stable appearance. SUPPORT DEVICES: Appropriate location without change. BONES: No acute findings. OTHER: No other significant finding. IMPRESSION: STABLE APPEARANCE OF THE CHEST. SUPPORT DEVICES UNCHANGED. TECHNICAL DOCUMENTATION: JOB ID: [id number] [employer]- All Rights Reserved Reading location - IP/workstation name: [email or web address]
--- NOTE | 2019-07-09 11:06 | RADIOLOGY REPORT (SQ) ---
EXAM DESCRIPTION: CT HEAD WITHOUT COMPLETED DATE/TIME: 07/09/2019 10:52 am REASON FOR STUDY: headache COMPARISON: 06/13/2019 TECHNIQUE: Axial images acquired through the brain without intravenous contrast. Images reviewed wi th bone, brain and subdural windows. Additional sagittal and coronal reconstructions were generated. Images stored on PACS. All CT scanners at this facility use dose modulation, iterative reconstruction, and/or weight based d osing when appropriate to reduce radiation dose to as low as reasonably achievable (ALARA). [facility]: Dose Right [facility]: CareDose [facility]: Dose Right [facility]: Teradose 4D [facility]: [employer] RADIATION DOSE: 951 mGy cm LIMITATIONS: None. FINDINGS: VENTRICLES: Normal size and contour. CEREBRUM: No masses. No hemorrhage. No midline shift. No evidence for acute infarction. Unchanged encephalomalacia of the right MCA territory with aneurysm clip present in the middle fossa. CEREBELLUM: No masses. No hemorrhage. No alteration of density. No evidence for acute infarction. EXTRAAXIAL SPACES: No fluid collections. No masses. ORBITS AND GLOBE: No intra- or extraconal masses. Normal contour of globe without masses. CALVARIUM: Status post right pterional craniotomy. PARANASAL SINUSES: No fluid or mucosal thickening. SOFT TISSUES: No mass or hematoma. OTHER: No other significant finding. IMPRESSION: No acute noncontrast CT findings to explain headache. Unchanged encephalomalacia of the right MCA territory with aneurysm clip underlying a right pterional craniotomy. EVIDENCE OF ACUTE STROKE: NO. COMMENT: Quality ID # [id number]: Final reports with documentation of one or more dose reduction techniques (e.g., Automated exposure control, adjustment of the mA and/or kV according to patient size, use of iterative reconstruction technique) TECHNICAL DOCUMENTATION: JOB ID: [id number] [employer]- All Rights Reserved Reading location - IP/workstation name: [email or web address]
[2019-07-09 11:36] LABS: ABSOLUTE EOSINOPHILS # (AUTO) 0.1 10^3/uL (0.0-0.6); ABSOLUTE MONOCYTES (AUTO) 0.4 10^3/uL (0.1-1.4); ABSOLUTE NEUT (AUTO) 4.5 10^3/uL (1.7-8.2); BASOPHILS % (AUTO) 0.8 % (0-2); EOSINOPHILS % (AUTO) 2.2 % (0-6); HEMATOCRIT 31.8 % (36.0-47.0); LYMPHOCYTES % (AUTO) 16.2 % (13-45); MEAN CORPUSCULAR HEMOGLOBIN 28.2 pg (27.0-33.4); MEAN CORPUSCULAR HGB CONC 34.5 g/dL (32.0-36.0); MEAN CORPUSCULAR VOLUME 82 fl (80-97); MONOCYTES % (AUTO) 7.2 % (3-13); PLATELET COUNT 218 10^3/uL (150-450); RED BLOOD COUNT 3.89 10^6/uL (3.72-5.28); SEGMENTED NEUTROPHILS % (AUTO) 73.6 % (42-78); TOTAL CELLS COUNTED % (AUTO) 100 %; WHITE BLOOD COUNT 6.1 10^3/uL (4.0-10.5)
[2019-07-09 11:48] LABS: APPEARANCE,URINE CLEAR; BILIRUBIN,URINE NEGATIVE (NEGATIVE); COLOR,URINE YELLOW; GLUCOSE, URINE NEGATIVE (NEGATIVE); INTERNATIONAL RATION (INR) 1.23; KETONES,URINE TRACE mg/dL (NEGATIVE); LEUKOCYTE ESTERASE,URINE NEGATIVE (NEGATIVE); NITRITE,URINE NEGATIVE (NEGATIVE); PROTEIN,URINE NEGATIVE (NEGATIVE); PROTHROMBIN TIME 15.6 SEC (11.4-15.4); URINE SPECIFIC GRAVITY 1.013; UROBILINOGEN,URINE NEGATIVE mg/dL (<2.0)
[2019-07-09 11:56] LABS: ALBUMIN 3.8 g/dL (3.5-5.0); ALKALINE PHOSPHATASE 66 U/L (38-126); ANION GAP 8 (5-19); ASPARTATE AMINO TRANSFERASE 15 U/L (14-36); BILIRUBIN,DIRECT 0.3 mg/dL (0.0-0.4); BILIRUBIN,TOTAL 0.6 mg/dL (0.2-1.3); BLOOD UREA NITROGEN 19 mg/dL (7-20); CALCIUM 9.7 mg/dL (8.4-10.2); CARBON DIOXIDE 30 mmol/L (22-30); CHLORIDE 99 mmol/L (98-107); GLUCOSE 102 mg/dL (75-110); POTASSIUM 3.5 mmol/L (3.6-5.0); TOTAL PROTEIN 6.2 g/dL (6.3-8.2)
--- NOTE | 2019-07-09 12:27 | EKG REPORT ---
SEVERITY:- ABNORMAL ECG - SINUS RHYTHM BORDERLINE LEFT AXIS DEVIATION NONSPECIFIC T ABNORMALITIES, LATERAL LEADS : Confirmed by: Chinyere Palomares MD 09-Jul-2019 12:26:26
[2019-07-09 13:35] VITALS: BP 133/47
== END 2019-07-09 13:52 | disposition home or self-care (01) ==
LOC: ER 09:40
DX: Z71.1 Person with feared health complaint in whom no diagnosis is made (principal); R53.1 Weakness; I95.9 Hypotension, unspecified; R30.9 Painful micturition, unspecified; I10 Essential (primary) hypertension
CPT/HCPCS: 93005; 99285; 96360; 36415; 83735; 85025; 85610; 80053; 81001; 84484; 71045; 70450; 93010; J7040

== ENCOUNTER 2019-09-13 14:25 | Emergency (ER) | payer MEDICARE, OTHER ==
--- NOTE | 2019-09-13 17:57 | RADIOLOGY REPORT (SQ) ---
EXAM DESCRIPTION: CT HEAD WITHOUT COMPLETED DATE/TIME: 09/13/2019 5:36 pm REASON FOR STUDY: Fell and hit head. Hx dementia COMPARISON: 07/09/2019 TECHNIQUE: Axial images acquired through the brain without intravenous contrast. Images reviewed wi th bone, brain and subdural windows. Additional sagittal and coronal reconstructions were generated. Images stored on PACS. All CT scanners at this facility use dose modulation, iterative reconstruction, and/or weight based d osing when appropriate to reduce radiation dose to as low as reasonably achievable (ALARA). [facility]: Dose Right [facility]: CareDose [facility]: Dose Right [facility]: Teradose 4D [facility]: [employer] RADIATION DOSE: mGy. LIMITATIONS: None. FINDINGS: VENTRICLES: Normal size and contour. CEREBRUM: Encephalomalacia in the right temporal lobe. Aneurysm clip in the middle cranial fossa. N o hemorrhage. No evidence of acute infarction. No mass. Areas of low density in the white matter mo st likely chronic small vessel ischemic changes. CEREBELLUM: No masses. No hemorrhage. No alteration of density. No evidence for acute infarction. EXTRAAXIAL SPACES: No fluid collections. No masses. ORBITS AND GLOBE: No intra- or extraconal masses. Normal contour of globe without masses. CALVARIUM: Craniotomy changes on the right. No acute finding. PARANASAL SINUSES: No fluid or mucosal thickening. SOFT TISSUES: No mass or hematoma. OTHER: No other significant finding. 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 Aneurysm clip in the middle crania l fossa. No acute finding. Chronic microvascular ischemia. EVIDENCE OF ACUTE STROKE: NO. COMMENT: Quality ID # [id number]: Final reports with documentation of one or more dose reduction techniques (e.g., Automated exposure control, adjustment of the mA and/or kV according to patient size, use of iterative reconstruction technique) TECHNICAL DOCUMENTATION: JOB ID: [id number] [employer]- All Rights Reserved Reading location - IP/workstation name: [email or web address]
--- NOTE | 2019-09-13 17:58 | ER Document Report ---
ED Fall - General Chief Complaint: Fall Stated Complaint: FALL Time Seen by Provider: 09/13/19 16:57 Primary Care Provider: ALAYNA LARRY MD [Primary Care Provider] - Follow up as needed Notes: Patient with a history of dementia who is a current resident at the [facility]. Today, she reportedly was leaning forward in her wheelchair and lost her balance and fell forward hitting her head on the floor. Patient points to the anterior right scalp region is where she hit her head. She was not reported to be unconscious at any time. Moving all 4 extremities normally. Complains of pain in the back of her neck. No neurologic deficits. Also complains of pain in her left wrist and in her left hip. Patient also complaining of pain in her left hip and left wrist. She has had previous surgery with pins in the left hip about 7 years ago. 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 History of seizures but none reported at this time on this visit. TRAVEL OUTSIDE OF THE [place] IN LAST 30 DAYS: No - Related data Allergies/Adverse Reactions: aspirin [Aspirin] Allergy (Severe, Verified 06/12/19 18:02) Swelling of Throat morphine [Morphine] Allergy (Intermediate, Verified 06/12/19 18:02) Penicillins Allergy (Intermediate, Verified 06/12/19 18:02) fentanyl [Fentanyl] Allergy (Verified 06/12/19 18:02) tachycardia, apnea, "feels like room is closing in" hydromorphone HCl [From Dilaudid] Allergy (Verified 06/12/19 18:02) "feels like throat is closing" Iodinated Contrast Media [IV Dye, Iodine Containing] Allergy (Verified 06/12/19 18:02) Sulfa (Sulfonamide Antibiotics) Allergy (Verified 06/12/19 18:02) hydromorphone [From Dilaudid] Adverse Reaction (Verified 06/12/19 18:02) Home Medications: caredilol. lamotrigine. levotyroxin. losartan. ranitidine. risperdone. simvastatin Past Medical History - Social History Smoking Status: Unknown if Ever Smoked Lives with: [facility] Family History: Reviewed & Not Pertinent Patient has suicidal ideation: No Patient has homicidal ideation: No - Past Medical History Cardiac Medical History: Reports: Hx Hypercholesterolemia, Hx Hypertension Neurological Medical History: Reports: Hx Cerebrovascular Accident - 2010, Hx Seizures - Has not had a seizure in several years, Other - Dementia Renal/ Medical History: Denies: Hx Peritoneal Dialysis GI Medical History: Reports: Hx Gastroesophageal Reflux Disease Musculoskeletal Medical History: Reports Hx Arthritis Psychiatric Medical History: Reports: Hx Depression Past Surgical History: Reports: Hx Hysterectomy, Hx Neurologic Surgery - Brain aneurysm clip, Hx Orthopedic Surgery - Lt hip fx repair, Hx Thyroid Surgery - partial, Other - Bilobed Right MCA aneurysm clipping in 2009 - Immunizations Hx Diphtheria, Pertussis, Tetanus Vaccination: No Hx Pneumococcal Vaccination: 11/22/11 Review of Systems - Review of Systems Notes: CONSTITUTIONAL : Denies fever reported. Assisted in review of systems by patient's daughter who is at bedside. Head: No swelling reported. Spine: Spine tender in the lower cervical spine region. CARDIOVASCULAR: Denies chest pain. RESPIRATORY: Denies cough, chest congestion, or shortness of breath. No rib tenderness or pains. GASTROINTESTINAL: Denies abdominal pain or nausea, vomiting, or diarrhea. GENITOURINARY: Unable to understand patient's reply. Neurological: No change from patient's baseline neurologic status. Skin without any lesions. -: Yes ROS unobtainable due to patient's medical condition - Patient is an unreliable historian and cannot answer questions appropriatel Skin: Rash - Patient's family brought to my attention that she has numerous small excoriations of both lower extremities from just below the knees to the ankle region bilaterally. Appears to be almost exclusively on areas that would be exposed to insects or to the patient's own scratching, although the family says she does not do that. I do not think any of these require an antibiotic, recommended gentle soap and water cleansing couple of times a day. Dermatology follow-up as needed. Physical Exam - Vital signs Vitals: Pulse Resp BP Pulse Ox 75 15 107/62 96 09/13/19 14:40 09/13/19 14:40 09/13/19 14:40 09/13/19 14:40 Interpretation: Normal Notes: PHYSICAL EXAMINATION: GENERAL: Well-appearing, in no acute distress. HEAD: Atraumatic, normocephalic. No obvious head trauma. No swelling or hematomas seen or felt. EYES: Pupils equal round and reactive to light, extraocular movements intact. ENT: oropharynx clear without exudates. Moist mucous membranes. NECK: Normal range of motion, supple. Tender in the lower posterior midline cervical vertebrae. LUNGS: Breath sounds clear and equal bilaterally. No rib tenderness. HEART: Regular rate and rhythm without murmurs. ABDOMEN: Soft, nontender. No guarding or rebound. No masses. BACK: No tenderness throughout entire back. Below the cervical region EXTREMITIES: Normal range of motion without pain. Pain to touch or move the patient's left wrist, although there is no significant soft tissue swelling at this time. Also tender to press on the patient's left hip and to move it. NEUROLOGICAL: Normal speech, but confused. Unable to walk. Normal sensory, motor, and reflex exams. Awake, alert, but not oriented to person, place, or time. PSYCH: Unable to assess. SKIN: Warm, dry, with numerous relatively superficial, shallow excoriations of both lower extremities in the anterior aspect below the knees and above the ankles. There are couple of them that are somewhat red, but I do not think there significantly infected to put on antibiotic. Family says they have been there for weeks or longer. Facility where she resides has been exposed to scabies. I see no bruises, abrasions, lacerations, or other skin trauma. Course - Vital Signs Vital signs: Temp Pulse Resp BP Pulse Ox 75 15 107/62 96 09/13/19 14:40 09/13/19 14:40 09/13/19 14:40 09/13/19 14:40 Discharge - Discharge Clinical Impression: Fall, Sprain of cervical neck, Muscle strain, Minor head injury Condition: Stable Disposition: HOME, SELF-CARE Additional Instructions: HEAD INJURY PRECAUTIONS: At this point, there is no evidence that your head injury is serious. Observation is necessary, however. Take only clear liquids for the first few hours, unless told otherwise by the doctor. If no pain medication was prescribed, you may take acetaminophen according to the directions on the bottle. Do not take any medication that may alter your level of alertness (unless you've discussed it with the doctor first). Limit activity for the first 24 hours. Bed rest is best. During the first 24 hours, check to see approximately every two to three hours that the patient is easily arousable, responds normally, and can perform common tasks such as walking without difficulty. Contact your doctor or go to the hospital if any of the following things occur: Persistent vomiting, difficulty in arousing the patient, worsening or continued headache, or failure to improve as expected. Head injuries can cause symptoms that persist for a few days or even a few weeks. NECK INJURY (CERVICAL STRAIN): You have a neck strain. This is an injury to the muscles and ligaments in the neck. There is no evidence of a fracture of the neck bones. Also, no injury to the spinal cord or nerve roots was detected. Usually, stiffness and pain INCREASE for the first 24-48 hours after the injury. The pain will gradually resolve and the neck will become more mobile. Most patients are back at work or school within a few days. Typically, complete healing takes about two or three weeks. The usual initial treatment is rest and cold packs. A neck collar may be placed to keep the muscles of the neck at rest. Antiinflammatory and muscle relaxing medication are often used to reduce the spasm and irritation. You should call the doctor, or go to the hospital, if you develop numbness or weakness in any extremity, problems with your bladder or bowel, or pain radiating down the arms. MUSCLE STRAIN: You have strained a muscle -- torn the fibers within the muscle. This often occurs with strenuous exertion, or during an injury that suddenly stretches the muscle. The seriousness of a strain varies. Some strains heal within days, others cause problems for months. X-rays cannot show a muscle strain. X-rays are taken only if symptoms suggest that a fracture could be present. The usual treatment of a muscle strain is rest and ice packs. Sometimes, a sling, splint, or crutches may be necessary to rest the muscle. The muscle can be used again once pain subsides. Severe strains require a special exercise and stretching program to prevent permanent stiffness and disability. Your doctor will advise you if this will be necessary. Call the doctor immediately if pain or swelling becomes severe, or if numbness or discoloration develop. CONTUSION: Your injury has resulted in a contusion -- a crushing of the deep tissues. No injury to important structures was detected during the physician's exam. Contusions vary in the amount of pain they cause, and in the length of time required for healing. Typically, the area will become bruised, and will remain painful to touch for two or three weeks. However, most patients are back to working and playing within a few days. After the initial period of rest and cold-packs, your symptoms (together with the doctor's recommendations) will determine how rapidly you can get back to full activity. Usually this means "do what feels okay, but don't do things that hurt." If re-examination was recommended, it's important to follow up as instructed. Call the doctor or return any time if pain increases, if swelling becomes severe, if you develop numbness or weakness in an injured extremity, or if any other alarming symptoms occur. ABRASIONS: An abrasion is a scraping injury of the skin. Some scarring may result. The seriousness of an abrasion is not always obvious at first. Hidden tissue damage may be present and infection may occur despite proper care. Complete healing may take from ten days to as long as a month. The healing time depends on the depth of the abrasion, and on the amount of crushing of underlying tissues from the injury. Keep the wound and dressing clean. Do not shower or bathe the area until okayed by the doctor. If the dressing gets wet, remove it and blot the wound dry, then reapply a clean dressing. Dressings should be changed every day. Sunscreen should be used for six months after the skin is healed. If any signs of infection occur (swelling, redness, increasing tenderness, red streaks, profuse purulent drainage from the abrasion, tender lumps in the armpit or groin above the abrasion, or fever), see the doctor immediately. USE OF TYLENOL (ACETAMINOPHEN): Acetaminophen may be taken for pain relief or fever control. It's much saf er than aspirin, offering a wider range of "safe" dosages. It is safe during . Some brand names are Tylenol, Panadol, Datril, Anacin 3, Tempra, and Liquiprin. Acetaminophen can be repeated every four hours. The following are maximum recommended dosages: WEIGHT Dose Drops Elixir Chewable(80mg) (LBS.) drprs=droppers tsp=teaspoon >89 pounds or adults 650 mg to 900 mg Acetaminophen can be repeated every four hours. Maximum dose not to exceed 4000 mg a day. These maximum recommended dosages are slightly higher than the dosages written on the product container, but these dosages are very safe and below the toxic dosage for acetaminophen. FOLLOW-UP CARE: If you have been referred to a physician for follow-up care, call the physicians office for an appointment as you were instructed or within the next two days. If you experience worsening or a significant change in your symptoms, notify the physician immediately or return to the Emergency Department at any time for re-evaluation. The rash on your lower extremities is very nonspecific. It could be due to insect bites or scratching of the area or picking at the area by the patient. I only recommend gentle soap and water washes of the area a couple of times a day and then leave open and dry to the air so bacteria will not grow. I do not think his general antibiotic is indicated at this time. Referrals: ALAYNA LARRY MD [Primary Care Provider] - Follow up as needed
--- NOTE | 2019-09-13 18:00 | RADIOLOGY REPORT (SQ) ---
EXAM DESCRIPTION: CT CERVICAL SPINE WITHOUT COMPLETED DATE/TIME: 09/13/2019 5:36 pm REASON FOR STUDY: Fell, hit head, pain in lower posterior C-spine COMPARISON: None. TECHNIQUE: Axial images acquired through the cervical spine without intravenous contrast. Images re viewed with lung, soft tissue and bone windows. Reconstructed coronal and sagittal MPR images review ed. Images stored on PACS. All CT scanners at this facility use dose modulation, iterative reconstruction, and/or weight based d osing when appropriate to reduce radiation dose to as low as reasonably achievable (ALARA). [facility]: Dose Right [facility]: CareDose [facility]: Dose Right [facility]: Teradose 4D [facility]: [employer] RADIATION DOSE: mGy. LIMITATIONS: None. FINDINGS: ALIGNMENT: Anatomic. MINERALIZATION: Normal. VERTEBRAL BODIES: No fractures or dislocation. DISCS: No significant disc disease. FACETS, LATERAL MASSES, POSTERIOR ELEMENTS: Hypertrophic facet changes are present bilaterally. HARDWARE: None in the spine. VISUALIZED RIBS: No fractures. LUNG APICES AND SOFT TISSUES: No significant or acute findings. OTHER: No other significant finding. IMPRESSION: Facet arthropathy. No acute finding. TECHNICAL DOCUMENTATION: JOB ID: [id number] Quality ID # [id number]: Final reports with documentation of one or more dose reduction techniques (e.g., Au tomated exposure control, adjustment of the mA and/or kV according to patient size, use of iterative reconstruction technique) 2010 [employer]- All Rights Reserved Reading location - IP/workstation name: [email or web address]
--- NOTE | 2019-09-13 18:02 | RADIOLOGY REPORT (SQ) ---
EXAM DESCRIPTION: WRIST LEFT 3 VIEWS COMPLETED DATE/TIME: 09/13/2019 5:39 pm REASON FOR STUDY: Fell and injured left wrist. COMPARISON: None. NUMBER OF VIEWS: Three views. TECHNIQUE: AP, lateral, and oblique radiographic images acquired of the left wrist. LIMITATIONS: None. FINDINGS: MINERALIZATION: Osteopenia. BONES: No acute fracture or dislocation. No worrisome bone lesions. Normal alignment. SOFT TISSUES: No soft tissue swelling. No foreign body. OTHER: No other significant finding. IMPRESSION: NEGATIVE STUDY OF THE LEFT WRIST. NO RADIOGRAPHIC EVIDENCE OF ACUTE INJURY. TECHNICAL DOCUMENTATION: JOB ID: [id number] [email or web address]- All Rights Reserved Reading location - IP/workstation name: [email or web address]
--- NOTE | 2019-09-13 18:02 | RADIOLOGY REPORT (SQ) ---
EXAM DESCRIPTION: HIP LEFT AP/LATERAL COMPLETED DATE/TIME: 09/13/2019 5:39 pm REASON FOR STUDY: Fell and injured left hip, Hx surgery COMPARISON: 04/03/2019 NUMBER OF VIEWS: Two views. TECHNIQUE: AP pelvis and additional frog-leg view of the left hip. LIMITATIONS: None. FINDINGS: MINERALIZATION: Normal. LEFT HIP: Prior ORIF. No acute fracture or dislocation. RIGHT HIP: No fracture or dislocation. No worrisome bone lesions. PUBIS AND ISCHIUM: No fracture. PELVIS: No fracture. SACRUM: No fracture or dislocation. No worrisome bone lesions. LOWER LUMBAR SPINE: Lower lumbar degenerative disc disease and spondylosis. SOFT TISSUES: No findings. OTHER: No other significant finding. IMPRESSION: NEGATIVE STUDY OF THE LEFT HIP AND PELVIS. NO RADIOGRAPHIC EVIDENCE OF ACUTE INJURY. TECHNICAL DOCUMENTATION: JOB ID: [id number] [employer]- All Rights Reserved Reading location - IP/workstation name: [email or web address]
[2019-09-13 19:47] VITALS: BP 104/54
== END 2019-09-13 19:48 | disposition home or self-care (01) ==
LOC: ER 14:25
DX: S13.9XXA Sprain of joints and ligaments of unspecified parts of neck, initial encounter (principal); S09.90XA Unspecified injury of head, initial encounter; T14.8XXA Other injury of unspecified body region, initial encounter; M54.2 Cervicalgia; M25.532 Pain in left wrist; M25.552 Pain in left hip; W05.0XXA Fall from non-moving wheelchair, initial encounter; Y92.199 Unspecified place in other specified residential institution as the place of occurrence of the external cause; S80.812A Abrasion, left lower leg, initial encounter; S80.811A Abrasion, right lower leg, initial encounter; X58.XXXA Exposure to other specified factors, initial encounter; F03.90 Unspecified dementia, unspecified severity, without behavioral disturbance, psychotic disturbance, mood disturbance, and anxiety; I10 Essential (primary) hypertension; Z20.7 Contact with and (suspected) exposure to pediculosis, acariasis and other infestations; Z88.8 Allergy status to other drugs, medicaments and biological substances; Z88.5 Allergy status to narcotic agent; Z88.0 Allergy status to penicillin; Z91.041 Radiographic dye allergy status; Z88.2 Allergy status to sulfonamides
CPT/HCPCS: 70450; 72125; 99284

== ENCOUNTER 2020-06-11 07:54 | Emergency (ER) | payer MEDICARE, OTHER ==
--- NOTE | 2020-06-11 08:26 | ER Document Report ---
ED General - General Chief Complaint: Probable Seizure Stated Complaint: POSSIBLE SEIZURE Primary Care Provider: ALAYNA LARRY MD [Primary Care Provider] - Follow up as needed Notes: Patient is a 39-year-old white female with a history of aneurysm status post surgical clipping, subsequent CVA affecting the left side and seizures who presents to the emergency department accompanied by her daughter with a chief complaint of suspected seizure. The daughter states that the patient was sitting in her wheelchair this morning while she was making breakfast for her. She states she came around and saw her in the wheelchair trembling all over. States her arms and legs and body were all shaking. She states the patient was awake during this episode. States she pulled her out of the wheelchair and later on the couch and the patient calmed down. She states the patient was lucid afterward. No oral injury or incontinence. The patient reports that she recalls all the events. She admits to pain in the top of her head and back of her head at this time. She denies any other pain, complaints or concerns. No chest pain, shortness of breath, abdominal pain, numbness, tingling, new weakness. The daughter reports this occurred around 7:30 in the morning and lasted approximately 45 seconds. She was concerned and called EMS. TRAVEL OUTSIDE OF THE [place] IN LAST 30 DAYS: No - Related Data Allergies/Adverse Reactions: aspirin [Aspirin] Allergy (Severe, Verified 06/11/20 08:01) Swelling of Throat morphine [Morphine] Allergy (Intermediate, Verified 06/11/20 08:01) Penicillins Allergy (Intermediate, Verified 06/11/20 08:01) fentanyl [Fentanyl] Allergy (Verified 06/11/20 08:01) tachycardia, apnea, "feels like room is closing in" hydromorphone HCl [From Dilaudid] Allergy (Verified 06/11/20 08:01) "feels like throat is closing" Iodinated Contrast Media [IV Dye, Iodine Containing] Allergy (Verified 06/11/20 08:01) Sulfa (Sulfonamide Antibiotics) Allergy (Verified 06/11/20 08:01) hydromorphone [From Dilaudid] Adverse Reaction (Verified 06/11/20 08:01) Past Medical History - Social History Smoking Status: Former Smoker Family History: Reviewed & Not Pertinent Patient has homicidal ideation: No - Past Medical History Cardiac Medical History: Reports: Hx Hypercholesterolemia, Hx Hypertension Denies: Hx Heart Attack Pulmonary Medical History: Denies: Hx Asthma, Hx Bronchitis, Hx COPD, Hx Pneumonia Neurological Medical History: Reports: Hx Cerebrovascular Accident - 2010, Hx Seizures Renal/ Medical History: Denies: Hx Peritoneal Dialysis GI Medical History: Reports: Hx Gastroesophageal Reflux Disease Musculoskeletal Medical History: Reports Hx Arthritis Psychiatric Medical History: Reports: Hx Depression Past Surgical History: Reports: Hx Hysterectomy, Hx Neurologic Surgery - Brain aneurysm clip, Hx Orthopedic Surgery - Lt hip fx repair, Hx Thyroid Surgery - partial, Other - Bilobed Right MCA aneurysm clipping in 2010 - Immunizations Hx Diphtheria, Pertussis, Tetanus Vaccination: No Hx Pneumococcal Vaccination: 11/22/11 Review of Systems - Review of Systems Constitutional: denies: Fever EENT: denies: Eye pain Cardiovascular: denies: Chest pain Respiratory: denies: Short of breath Gastrointestinal: denies: Abdominal pain Genitourinary: denies: Dysuria Female Genitourinary: denies: Vaginal discharge Musculoskeletal: denies: Neck pain Skin: denies: Change in color Hematologic/Lymphatic: denies: Easy bleeding Neurological/Psychological: Headaches Physical Exam - Vital signs Vitals: Resp Pulse Ox 15 100 06/11/20 07:58 06/11/20 07:58 - General General appearance: Appears well, Alert In distress: None - HEENT Head: Normocephalic, Atraumatic Eyes: Normal Conjunctiva: Normal Extraocular movements intact: Yes Pupils: PERRL Ears: Normal External canal: Normal Tympanic membrane: Normal Nasal: Normal Mouth/Lips: Normal Mucous membranes: Normal Pharynx: Normal Neck: Supple - Respiratory Respiratory status: No respiratory distress Chest status: Nontender Breath sounds: Normal Chest palpation: Normal - Cardiovascular Rhythm: Regular Heart sounds: Normal auscultation - Extremities General upper extremity: Normal inspection, Nontender. No: Edema General lower extremity: Normal inspection, Nontender. No: Edema - Neurological Neuro grossly intact: Yes Cognition: Normal Orientation: AAOx4 [place] Coma Scale Eye Opening: Spontaneous [place] Coma Scale Verbal: Oriented [place] Coma Scale Motor: Obeys Commands [place] Coma Scale Total: 15 Speech: Normal Cranial nerves: Other - Chronic left-sided deficit from prior CVA otherwise cranial nerves normal as tested. Cerebellar coordination: Other - Chronic left-sided deficit upper and lower extremity Additional motor exam normals: Other - Normal right side left side with chronic deficit - Psychological Associated symptoms: Normal affect, Normal mood - Skin Skin Temperature: Warm Skin Moisture: Dry Skin Color: Normal Course - Re-evaluation Re-evalutation: 06/11/20 13:37 Initial EKG showing rate of 76 bpm with much artifact. Reading suggested potential complete AV block. Patient has no history of this. Repeat EKG was obtained showing once again great artifact but upon closer examination between myself and Dr. Morrison there is no evidence of any AV block. Artifact is disrupting appropriate reading. Patient has been here 5 hours and 43 minutes. Her work-up is unremarkable for any acute seizure activity. She has some white blood cells in the urine with leuks. As per recommendations in the elderly we will treat this as a urinary tract infection with Keflex. Given her first dose here. The patient has an established relationship with a neurologist. The daughter advised that they will call to follow-up regarding today's episode. She is had no seizure-like activity during her stay here. Reevaluation at this time she states that she feels fine and would like to be discharged home. I counseled them regarding the importance of outpatient follow-up and advised to return here any ER immediately with any new, persistent or worsening symptoms. They verbalized understood and agreed. - Vital Signs Vital signs: Temp Pulse Resp BP Pulse Ox 98.0 F 85 13 141/57 H 98 06/11/20 08:02 06/11/20 08:01 06/11/20 08:02 06/11/20 08:02 06/11/20 08:02 - Laboratory Result Diagrams: 06/11/20 08:07 06/11/20 08:07 Laboratory results interpreted by me: 06/11/20 06/11/20 06/11/20 08:07 08:07 12:23 Hgb 11.4 L Hct 33.1 L Sodium 136.5 L BUN 29 H Est GFR ( Amer) 59 L Est GFR (MDRD) Non-Af 48 L Total Protein 6.0 L Leukocyte Esterase Rfl TRACE H Discharge - Discharge Clinical Impression: Observed seizure-like activity UTI (urinary tract infection) Qualifiers: Urinary tract infection type: site unspecified Hematuria presence: without hematuria Qualified Code(s): N39.0 - Urinary tract infection, site not specified Condition: Stable Disposition: HOME, SELF-CARE Instructions: Urinary Tract Infection ([facility]) Additional Instructions: Please follow-up with your neurologist regarding today's episode. Please take the antibiotics for urinary tract infection. Please return here or any ER immediately with any new, persistent or worsening symptoms. Prescriptions: Cephalexin Monohydrate [Keflex 500 mg Capsule] 500 mg PO Q6H 10 Days #39 capsule Referrals: ALAYNA LARRY MD [Primary Care Provider] - Follow up as needed
[2020-06-11 08:32] LABS: ABSOLUTE EOSINOPHILS # (AUTO) 0.1 10^3/uL (0.0-0.6); ABSOLUTE LYMPHOCYTES (AUTO) 1.6 10^3/uL (0.5-4.7); ABSOLUTE MONOCYTES (AUTO) 0.4 10^3/uL (0.1-1.4); ABSOLUTE NEUT (AUTO) 2.9 10^3/uL (1.7-8.2); BASOPHILS % (AUTO) 0.9 % (0-2); EOSINOPHILS % (AUTO) 2.6 % (0-6); HEMATOCRIT 33.1 % (36.0-47.0); HEMOGLOBIN 11.4 g/dL (12.0-15.5); LYMPHOCYTES % (AUTO) 31.5 % (13-45); MEAN CORPUSCULAR HEMOGLOBIN 28.4 pg (27.0-33.4); MEAN CORPUSCULAR HGB CONC 34.3 g/dL (32.0-36.0); MEAN CORPUSCULAR VOLUME 83 fl (80-97); MONOCYTES % (AUTO) 7.3 % (3-13); PLATELET COUNT 186 10^3/uL (150-450); SEGMENTED NEUTROPHILS % (AUTO) 57.7 % (42-78); TOTAL CELLS COUNTED % (AUTO) 100 %; WHITE BLOOD COUNT 4.9 10^3/uL (4.0-10.5)
[2020-06-11 08:44] LABS: ALBUMIN 3.5 g/dL (3.5-5.0); ALKALINE PHOSPHATASE 70 U/L (38-126); ANION GAP 5 (5-19); ASPARTATE AMINO TRANSFERASE 16 U/L (14-36); BILIRUBIN,TOTAL 0.4 mg/dL (0.2-1.3); BLOOD UREA NITROGEN 29 mg/dL (7-20); CALCIUM 9.6 mg/dL (8.4-10.2); CARBON DIOXIDE 29 mmol/L (22-30); CHLORIDE 103 mmol/L (98-107); CREATINE KINASE 35 U/L (30-135); GLUCOSE 95 mg/dL (75-110); INTERNATIONAL RATION (INR) 1.07; POTASSIUM 3.9 mmol/L (3.6-5.0); PROTHROMBIN TIME 13.9 SEC (11.4-15.4)
[2020-06-11 08:45] LABS: PARTIAL THROMBOPLASTIN TIME 27.2 SEC (23.5-35.8)
--- NOTE | 2020-06-11 09:16 | RADIOLOGY REPORT (SQ) ---
EXAM DESCRIPTION: CT HEAD WITHOUT IMAGES COMPLETED DATE/TIME: 06/11/2020 8:59 am REASON FOR STUDY: h/o aneurysm, [facility] COMPARISON: 09/13/2019. TECHNIQUE: Axial images acquired through the brain without intravenous contrast. Images reviewed wi th bone, brain and subdural windows. Images stored on PACS. All CT scanners at this facility use dose modulation, iterative reconstruction, and/or weight based d osing when appropriate to reduce radiation dose to as low as reasonably achievable (ALARA). [facility]: Dose Right [facility]: [employer] [facility]: Dose Right [facility]: Ter[employer] 4D [facility]: Smart [employer] RADIATION DOSE: CT Rad equipment meets quality standard of care and radiation dose reduction techniq ues were employed. CTDIvol: 53.2 mGy. DLP: 964 mGy-cm. mGy. LIMITATIONS: None. FINDINGS: VENTRICLES: Stable appearance without developing hydrocephalus or intraventricular hemorrh age. 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 Associated postoperative changes including regional surgical clips and previous right temporal craniotomy. No parenchymal he morrhage or mass or shift developing. CEREBELLUM: No mass effect. No hemorrhage. No alteration of density. No evidence for acute infarct ion. EXTRAAXIAL SPACES: No extra-axial mass or hemorrhage or fluid. ORBITS AND GLOBE: Symmetrical contour of the globes. CALVARIUM: No depressed skull fracture. PARANASAL SINUSES: No air-fluid level. SOFT TISSUES: No hematoma. IMPRESSION: Chronic brain changes as above. Evidence of prior surgery with right frontal and tempor al encephalomalacia. No acute abnormality detected. TECHNICAL DOCUMENTATION: JOB ID: [id number] [facility] [place] [id number]: Final reports with documentation of one or more dose reduction techniques (e.g., Automate d exposure control, adjustment of the mA and/or kV according to patient size, use of iterative recons truction technique) 2010 [employer]- All Rights Reserved Reading location - IP/workstation name: ED
--- NOTE | 2020-06-11 09:17 | RADIOLOGY REPORT (SQ) ---
EXAM DESCRIPTION: CHEST SINGLE VIEW IMAGES COMPLETED DATE/TIME: 06/11/2020 9:03 am REASON FOR STUDY: ? seizure COMPARISON: 07/09/2019. FINDINGS: One-view chest AP portable upright. Stable exam, no acute disease. Lungs are clear, hyperinflated. No pneumothorax. Stable cardiomediastinal silhouette. Osteopenic without gross displaced fracture. TECHNICAL DOCUMENTATION: JOB ID: [id number] Reading location - IP/workstation name: ED
[2020-06-11 13:13] LABS: APPEARANCE,URINE SLIGHTLY-CLOUDY; BILIRUBIN,URINE NEGATIVE (NEGATIVE); COLOR,URINE YELLOW; GLUCOSE, URINE NEGATIVE (NEGATIVE); KETONES,URINE NEGATIVE (NEGATIVE); PROTEIN,URINE NEGATIVE (NEGATIVE); URINE SPECIFIC GRAVITY 1.013; UROBILINOGEN,URINE NEGATIVE mg/dL (<2.0)
[2020-06-11] MEDS ORDERED: CEPHALEXIN 500 MG CAPSULE PO ONE (13:35)
[2020-06-11 14:11] VITALS: BP 142/81
--- NOTE | 2020-06-11 19:21 | EKG REPORT ---
SEVERITY:- ABNORMAL ECG - SINUS RHYTHM : Confirmed by: Heather Lucero 11-Jun-2020 19:21:06
--- NOTE | 2020-06-12 09:33 | EKG REPORT ---
SEVERITY:- ABNORMAL ECG - SINUS RHYTHM : Confirmed on behalf of: Heather Lucero 12-Jun-2020 09:32:46
== END 2020-06-11 14:07 | disposition home or self-care (01) ==
LOC: ER 07:54
DX: R56.9 Unspecified convulsions (principal); N39.0 Urinary tract infection, site not specified; E78.00 Pure hypercholesterolemia, unspecified; I10 Essential (primary) hypertension; Z86.73 Personal history of transient ischemic attack (TIA), and cerebral infarction without residual deficits; Z90.710 Acquired absence of both cervix and uterus; Z88.2 Allergy status to sulfonamides
CPT/HCPCS: 93005; 99285; 51701; 36415; 82550; 85025; 85610; 85730; 80053; 81001; 84484; 71045; 70450; 93010; A9270